=== PATIENT | male | born 1995 | race Caucasian/White ===

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

== ENCOUNTER 2017-02-08 12:36 | Emergency (ER) | payer OTHER ==
--- NOTE | 2017-02-08 13:04 | EDM.PDOC ---
ED HPI GENERAL MEDICAL PROBLEM - General Chief Complaint: ENT Problem Stated Complaint: SORE THROAT AND EARS Time Seen by Provider: 02/08/17 13:00 Source of Information: Reports: Patient History Limitations: Reports: No Limitations - History of Present Illness INITIAL COMMENTS - FREE TEXT/NARRATIVE: History of present illness: [21-year-old male presenting with onset of ear pain, throat pain, indicates he has fevers off and on difficulty in swallowing as well as lymph node swelling along his eustachian tube.] Review of systems: As per history of present illness and below otherwise all systems reviewed and negative. Past medical history: As per history of present illness and as reviewed below otherwise noncontributory. Surgical history: As per history of present illness and as reviewed below otherwise noncontributory. Social history: No reported history of drug or alcohol abuse. Family history: As per history of present illness and as reviewed below otherwise noncontributory. Physical exam: HEENT: Atraumatic, normocephalic, pupils reactive, negative for conjunctival pallor or scleral icterus, mucous membranes moist with cryptic tonsillar's with hypertrophic changes as well as being erythematous with white patchy exudate at this time, neck supple, tender with cervical lymphadenopathy, trachea midline. Lungs: Clear to auscultation, breath sounds equal bilaterally, chest nontender. Heart: S1S2, regular, negative for clicks, rubs, or JVD. Abdomen: Soft, nondistended, nontender. Negative for masses or hepatosplenomegaly. Negative for costovertebral tenderness. Pelvis: Stable nontender. Genitourinary: Deferred. Rectal: Deferred. Extremities: Atraumatic, negative for cords or calf pain. Neurovascular unremarkable. Neuro: Awake, alert, oriented. Cranial nerves II through XII unremarkable. Cerebellum unremarkable. Motor and sensory unremarkable throughout. Exam nonfocal. Diagnostics: [] Therapeutics: [] Impression: [Strep pharyngitis] Plan: [antiBiotics] Definitive disposition and diagnosis as appropriate pending reevaluation and review of above. Left Ear Pain Score (Numeric/FACES): 7 Throat Pain Score (Numeric/FACES): 5 - Related Data Allergies Allergy/AdvReac Type Severity Reaction Status Date / Time No Known Allergies Allergy Verified 02/08/17 12:46 Home Meds: Home Meds . [No Known Home Meds] 02/08/17 [History] Past Medical History - Past Health History Medical/Surgical History: Denies Medical/Surgical History HEENT History: Reports: Impaired Vision, Sinusitis Other HEENT History: wears glasses Cardiovascular History: Reports: None Respiratory History: Reports: None Gastrointestinal History: Reports: None Genitourinary History: Reports: None Musculoskeletal History: Reports: None Neurological History: Other Neuro History: hx of motion sickness Psychiatric History: Reports: Bipolar Endocrine/Metabolic History: Reports: None Hematologic History: Reports: None Immunologic History: Reports: None Oncologic (Cancer) History: Reports: None Dermatologic History: Reports: None - Past Surgical History Head Surgeries/Procedures: Reports: None HEENT Surgical History: Reports: None Cardiovascular Surgical History: Reports: None Respiratory Surgical History: Reports: None GI Surgical History: Reports: None Male Surgical History: Reports: None Endocrine Surgical History: Reports: None Neurological Surgical History: Reports: None Musculoskeletal Surgical History: Reports: Other (See Below) Oncologic Surgical History: Reports: None Dermatological Surgical History: Reports: None Social & Family History - Family History Family Medical History: Noncontributory - Tobacco Use Smoking Status *Q: Current Every Day Smoker Years of Tobacco use: 9 Packs/Tins Daily: 0.3 Second Hand Smoke Exposure: No - Caffeine Use Caffeine Use: Reports: Coffee, Energy Drinks, Soda Caffeine Use Comment: 2-3 drinks /day - Alcohol Use Days Per Week of Alcohol Use: 0 - Recreational Drug Use Recreational Drug Use: Yes Drug Use in Last 12 Months: No Recreational Drug Type: Reports: Marijuana/Hashish Recreational Drug Use Frequency: Socially Recreational Drug Last Use: "4 months ago" ED ROS ENT - Review of Systems Review Of Systems: See Below (History of present illness) ED EXAM, ENT - Physical Exam Exam: See Below (See history of present illness) Course - Vital Signs Last Recorded V/S: Last Vital Signs Temp 36.9 C 02/08/17 12:41 Pulse 80 02/08/17 12:41 Resp 18 02/08/17 12:41 BP 130/72 02/08/17 12:41 Pulse Ox 96 02/08/17 12:41 Departure - Departure Time of Disposition: 13:04 Disposition: Home, Self-Care 01 Condition: Good Clinical Impression: Streptococcal sore throat - Discharge Information Forms: ED Department Discharge Additional Instructions: The following information is given to patients seen in the emergency department who are being discharged to home. This information is to outline your options for follow-up care. We provide all patients seen in our emergency department with a follow-up referral. The need for follow-up, as well as the timing and circumstances, are variable depending upon the specifics of your emergency department visit. If you don't have a primary care physician on staff, we will provide you with a referral. We always advise you to contact your personal physician following an emergency department visit to inform them of the circumstance of the visit and for follow-up with them and/or the need for any referrals to a consulting specialist. The emergency department will also refer you to a specialist when appropriate. This referral assures that you have the opportunity for follow-up care with a specialist. All of these measure are taken in an effort to provide you with optimal care, which includes your follow-up. Under all circumstances we always encourage you to contact your private physician who remains a resource for coordinating your care. When calling for follow-up care, please make the office aware that this follow-up is from your recent emergency room visit. If for any reason you are refused follow-up, please contact the [facility] Emergency Department at and asked to speak to the emergency department charge nurse. Take medication as directed Follow-up with PCP in 1-2 days Return to ED as needed as discussed
== END 2017-02-08 13:12 | disposition home or self-care (01) ==
LOC: MW.ED 12:36
CPT/HCPCS: 99282; 99283

== ENCOUNTER 2017-09-18 06:52 | Emergency (ER) | payer BC, OTHER ==
[2017-09-18] MEDS ORDERED: Sodium Chloride 0.9% 1,000 ML IV ONE (07:21)
[2017-09-18] MEDS ORDERED: Sodium Chloride 0.9% 10 ML Syringe FLUSH PRN (07:21)
[2017-09-18] MEDS ORDERED: Ondansetron 4 MG/2 ML SDV IVPUSH ONE (07:21)
[2017-09-18] MEDS ORDERED: Sodium Chloride 0.9% 2.5 ML Syringe FLUSH PRN (07:21)
--- NOTE | 2017-09-18 07:21 | EDM.PDOC ---
ED HPI GENERAL MEDICAL PROBLEM - General Chief Complaint: Gastrointestinal Problem Stated Complaint: VOMITING Time Seen by Provider: 09/18/17 07:04 Source of Information: Reports: Patient History Limitations: Reports: No Limitations - History of Present Illness INITIAL COMMENTS - FREE TEXT/NARRATIVE: History of present illness: []Patient has nonbloody vomiting and diarrhea since yesterday and awoke this morning with body aches. He states he has chills but is unsure if he's had any fevers. He attempted to eat chicken soup this morning but vomited and then had diarrhea. Review of systems: As per history of present illness and below otherwise all systems reviewed and negative. Past medical history: As per history of present illness and as reviewed below otherwise noncontributory. Surgical history: As per history of present illness and as reviewed below otherwise noncontributory. Social history: No reported history of drug or alcohol abuse. Family history: As per history of present illness and as reviewed below otherwise noncontributory. Physical exam: General: Well developed, well nourished in NAD HEENT: Atraumatic, normocephalic, pupils reactive, negative for conjunctival pallor or scleral icterus, mucous membranes moist, throat clear, neck supple, nontender, trachea midline. Lungs: Clear to auscultation, breath sounds equal bilaterally, chest nontender. Heart: S1S2, regular, negative for clicks, rubs, or JVD. Abdomen: Soft, nondistended, nontender. Negative for masses or hepatosplenomegaly. Negative for costovertebral tenderness. Pelvis: Stable nontender. Genitourinary: Deferred. Rectal: Deferred. Extremities: Atraumatic, negative for cords or calf pain. Neurovascular unremarkable. Neuro: Awake, alert, oriented. Cranial nerves II through XII unremarkable. Cerebellum unremarkable. Motor and sensory unremarkable throughout. Exam nonfocal. Diagnostics: []Labs urine negative Therapeutics: []IV hydrated Impression: []Vomiting and diarrhea Plan: []Zofran for nausea follow-up with PMD increase fluids return if symptoms worsen Definitive disposition and diagnosis as appropriate pending reevaluation and review of above. - Related Data Allergies Allergy/AdvReac Type Severity Reaction Status Date / Time No Known Allergies Allergy Verified 09/18/17 07:18 Home Meds: Home Meds Promethazine [Phenergan] 25 mg PO Q8H PRN #10 tab 09/18/17 [Rx] Past Medical History - Past Health History Medical/Surgical History: Denies Medical/Surgical History HEENT History: Reports: Impaired Vision, Sinusitis Other HEENT History: wears glasses Cardiovascular History: Reports: None Respiratory History: Reports: None Gastrointestinal History: Reports: None Genitourinary History: Reports: None Musculoskeletal History: Reports: None Neurological History: Other Neuro History: hx of motion sickness Psychiatric History: Reports: Bipolar Endocrine/Metabolic History: Reports: None Hematologic History: Reports: None Immunologic History: Reports: None Oncologic (Cancer) History: Reports: None Dermatologic History: Reports: None - Past Surgical History Head Surgeries/Procedures: Reports: None HEENT Surgical History: Reports: None Cardiovascular Surgical History: Reports: None Respiratory Surgical History: Reports: None GI Surgical History: Reports: None Male Surgical History: Reports: None Endocrine Surgical History: Reports: None Neurological Surgical History: Reports: None Musculoskeletal Surgical History: Reports: Other (See Below) Oncologic Surgical History: Reports: None Dermatological Surgical History: Reports: None Social & Family History - Family History Family Medical History: Noncontributory - Tobacco Use Smoking Status *Q: Current Every Day Smoker Years of Tobacco use: 9 Packs/Tins Daily: 0.3 Second Hand Smoke Exposure: No - Caffeine Use Caffeine Use: Reports: Coffee, Energy Drinks, Soda Caffeine Use Comment: 2-3 drinks /day - Alcohol Use Days Per Week of Alcohol Use: 0 - Recreational Drug Use Recreational Drug Use: Yes Drug Use in Last 12 Months: No Recreational Drug Type: Reports: Marijuana/Hashish Recreational Drug Use Frequency: Socially Recreational Drug Last Use: "4 months ago" ED ROS GENERAL - Review of Systems Review Of Systems: See Below (See history of present illness) ED EXAM, GI/ABD - Physical Exam Exam: See Below (See history of present illness) Course - Vital Signs Last Recorded V/S: Last Vital Signs Temp 97.8 F 09/18/17 07:17 Pulse 97 09/18/17 07:17 Resp 18 09/18/17 07:17 BP 125/93 H 09/18/17 07:17 Pulse Ox 98 09/18/17 07:17 - Orders/Labs/Meds Orders: Active Orders 24 hr Category Date Time Status Sodium Chloride 0.9% [Saline Flush] Med 09/18/17 07:21 Active 10 ml FLUSH ASDIRECTED PRN Sodium Chloride 0.9% [Saline Flush] Med 09/18/17 07:21 Active 2.5 ml FLUSH ASDIRECTED PRN Saline Lock Insert [OM.PC] Stat Oth 09/18/17 07:21 Ordered Medication Orders Sodium Chloride (Saline Flush) 10 ml FLUSH ASDIRECTED PRN PRN Reason: Keep Vein Open Last Admin: 09/18/17 07:51 Dose: 10 ml Sodium Chloride (Saline Flush) 2.5 ml FLUSH ASDIRECTED PRN PRN Reason: Keep Vein Open Last Admin: 09/18/17 07:51 Dose: 2.5 ml Labs: Laboratory Tests 09/18/17 09/18/17 09/18/17 Range/Units 07:38 07:38 08:52 WBC 8.52 (4.0-11.0) K/uL RBC 5.31 (4.50-5.90) M/uL Hgb 16.7 (13.0-17.0) g/dL Hct 46.4 (38.0-50.0) % MCV 87.4 (80.0-98.0) fL MCH 31.5 (27.0-32.0) pg MCHC 36.0 (31.0-37.0) g/dL RDW Std Deviation 40.2 (28.0-62.0) fl RDW Coeff of Debbie 13 (11.0-15.0) % Plt Count 270 (150-400) K/uL MPV 10.90 (7.40-12.00) fL Neut % (Auto) 61.2 (48.0-80.0) % Lymph % (Auto) 29.1 (16.0-40.0) % [place] % (Auto) 8.2 (0.0-15.0) % Eos % (Auto) 1.1 (0.0-7.0) % Baso % (Auto) 0.4 (0.0-1.5) % Neut # (Auto) 5.2 (1.4-5.7) K/uL Lymph # (Auto) 2.5 H (0.6-2.4) K/uL [place] # (Auto) 0.7 (0.0-0.8) K/uL Eos # (Auto) 0.1 (0.0-0.7) K/uL Baso # (Auto) 0.0 (0.0-0.1) K/uL Nucleated RBC % 0.0 /100WBC Nucleated RBCs # 0 K/uL Sodium 137 (136-146) mmol/L Potassium 4.2 (3.5-5.1) mmol/L Chloride 108 (98-110) mmol/L Carbon Dioxide 23 (21-31) mmol/L BUN 11 (6.0-23.0) mg/dL Creatinine 0.8 (0.6-1.5) mg/dL Est Cr Clr Drug Dosing 158.18 mL/min Estimated GFR (MDRD) > 60.0 ml/min Glucose 88 (60-110) mg/dL Calcium 9.4 (8.8-10.8) mg/dL Total Bilirubin 0.7 (0.1-1.5) mg/dL AST 18 (5-40) IU/L ALT 19 (8-54) IU/L Alkaline Phosphatase 85 L (125-750) Total Protein 7.7 (6.0-8.0) g/dL Albumin 4.5 (3.5-5.0) g/dL Globulin 3.2 (2.0-3.5) g/dL Albumin/Globulin Ratio 1.4 (1.3-2.8) Lipase 9 (7-80) U/L Urine Color YELLOW Urine Appearance CLEAR Urine pH 6.0 (5.0-8.0) Ur Specific [place] 1.015 (1.001-1.035) Urine Protein NEGATIVE (NEGATIVE) mg/dL Urine Glucose (UA) NEGATIVE (NEGATIVE) mg/dL Urine Ketones NEGATIVE (NEGATIVE) mg/dL Urine Occult Blood NEGATIVE (NEGATIVE) Urine Nitrite NEGATIVE (NEGATIVE) Urine Bilirubin NEGATIVE (NEGATIVE) Urine Urobilinogen 0.2 (<2.0) EU/dL Ur Leukocyte Esterase NEGATIVE (NEGATIVE) Urine RBC 0-1 (0-2/HPF) Urine WBC 0-1 (0-5/HPF) Ur Epithelial Cells RARE (NONE-FEW) Urine Bacteria RARE (NEGATIVE) Meds: Medications Generic Name Dose Route Start Last Admin Trade Name Freq PRN Reason Stop Dose Admin Sodium Chloride 10 ml 09/18/17 07:21 09/18/17 07:51 Saline Flush FLUSH 10 ml ASDIRECTED PRN Administration Keep Vein Open Sodium Chloride 2.5 ml 09/18/17 07:21 09/18/17 07:51 Saline Flush FLUSH 2.5 ml ASDIRECTED PRN Administration Keep Vein Open Discontinued Medications Generic Name Dose Route Start Last Admin Trade Name Freq PRN Reason Stop Dose Admin Sodium Chloride 1,000 mls @ 999 mls/hr 09/18/17 07:21 09/18/17 07:51 Normal Saline IV 09/18/17 08:21 999 mls/hr .Bolus ONE Administration Ondansetron HCl 4 mg 09/18/17 07:21 09/18/17 07:50 Zofran IVPUSH 09/18/17 07:22 Not Given ONETIME ONE Departure - Departure Time of Disposition: Disposition: Home, Self-Care 01 Condition: Good Clinical Impression: Vomiting and diarrhea - Discharge Information Prescriptions: Promethazine [Phenergan] 25 mg PO Q8H PRN #10 tab PRN Reason: Nausea Referrals: PCP,None [Primary Care Provider] - Forms: ED Department Discharge Additional Instructions: The following information is given to patients seen in the emergency department who are being discharged to home. This information is to outline your options for follow-up care. We provide all patients seen in our emergency department with a follow-up referral. The need for follow-up, as well as the timing and circumstances, are variable depending upon the specifics of your emergency department visit. If you don't have a primary care physician on staff, we will provide you with a referral. We always advise you to contact your personal physician following an emergency department visit to inform them of the circumstance of the visit and for follow-up with them and/or the need for any referrals to a consulting specialist. The emergency department will also refer you to a specialist when appropriate. This referral assures that you have the opportunity for follow-up care with a specialist. All of these measure are taken in an effort to provide you with optimal care, which includes your follow-up. Under all circumstances we always encourage you to contact your private physician who remains a resource for coordinating your care. When calling for follow-up care, please make the office aware that this follow-up is from your recent emergency room visit. If for any reason you are refused follow-up, please contact the [facility] Emergency Department at and asked to speak to the emergency department charge nurse. Phenergan for nausea with PMD increase fluids return if symptoms worsen or change [facility] [address] [place] [id number] - My Orders Last 24 Hours: My Active Orders 09/18/17 07:21 Sodium Chloride 0.9% [Saline Flush] 10 ml FLUSH ASDIRECTED PRN Sodium Chloride 0.9% [Saline Flush] 2.5 ml FLUSH ASDIRECTED PRN Saline Lock Insert [OM.PC] Stat - Assessment/Plan Last 24 Hours: My Active Orders 09/18/17 07:21 Sodium Chloride 0.9% [Saline Flush] 10 ml FLUSH ASDIRECTED PRN Sodium Chloride 0.9% [Saline Flush] 2.5 ml FLUSH ASDIRECTED PRN Saline Lock Insert [OM.PC] Stat
[2017-09-18 08:13] LABS: CHLORIDE,CL 108 mmol/L (98-110); SODIUM,NA 137 mmol/L (136-146)
[2017-09-18 09:32] VITALS: BP 140/80
== END 2017-09-18 09:35 | disposition home or self-care (01) ==
LOC: MW.ED 06:52
DX: R11.10 Vomiting, unspecified (principal); R19.7 Diarrhea, unspecified; F17.210 Nicotine dependence, cigarettes, uncomplicated
CPT/HCPCS: 36415; 80053; 81001; 83690; 85025; 87804; 96360; 99284; J7040; 99283

== ENCOUNTER 2019-10-11 04:26 | Emergency (ER) | payer BC, OTHER ==
--- NOTE | 2019-10-11 04:42 | EDM.PDOC ---
ED HPI GENERAL MEDICAL PROBLEM - General Chief Complaint: Respiratory Problem Stated Complaint: CONGESTION, VOMITING, COUGH Time Seen by Provider: 10/11/19 04:36 Source of Information: Reports: Patient - History of Present Illness INITIAL COMMENTS - FREE TEXT/NARRATIVE: CC cough HPI: This is a 24-year-old male with cough and fever for the past 3 days today the patient had some posttussive emesis. No abdominal pain or diarrhea. PMHX/PSHX: Negative Social History: Negative for tobacco, negative for alcohol, negative for street drugs but positive for marijuana Family history: Hypertension ROS: see chart PE: VS afebrile vital signs stable General: No apparent distress Head: Atraumatic normocephalic no lumps bumps or bruises Eyes: EOMI PERRLA scera white, conjuntiva pink Ears: TMs intact. No hemotympanum. No signs of infection or mastoid tenderness Nose: No epistaxis. Nares patent. No septal wall hematoma Throat: No pharyngeal erythema, exudate or tonsillar enlargement Neck: Supple. No cervical lymphadenopathy Chest wall: No point tenderness Heart: Regular rate and rhythm without murmur gallop or rub Lungs: Clear to auscultation and percussion without rale, rhonchi or wheeze. Abdomen: Soft nontender nondistended without guarding rigidity or rebound. Bowel sounds present. Neck: No spinal point tenderness full range of motion in all 6 directions Back: No spinal paraspinal or CVA tenderness Extremities: Full range of motion through out. No effusions Skin: Warm, dry and intact. No rashes, erythema or warmth Neurologic: Cranial nerves II through XII intact bilaterally. No focal motor or sensory deficits noted MDM: Differential diagnosis: Pneumonia viral URI influenza ED course: Patient is 3 days into his illness so no reason to check for flu. Pulse ox 95% lungs clear no signs of pneumonia abdomen benign. I suspect the flu or viral illness as his mother is been sick at home with similar symptoms patient stable for discharge Final Diagnosis: Viral syndrome Disposition: Home - Related Data Allergies Allergy/AdvReac Type Severity Reaction Status Date / Time No Known Allergies Allergy Verified 09/18/17 07:18 Home Meds: Home Meds Promethazine [Phenergan] 25 mg PO Q8H PRN #10 tab 09/18/17 [Rx] Past Medical History - Past Health History Medical/Surgical History: Denies Medical/Surgical History HEENT History: Reports: Impaired Vision, Sinusitis Other HEENT History: wears glasses Cardiovascular History: Reports: None Respiratory History: Reports: None Gastrointestinal History: Reports: None Genitourinary History: Reports: None Musculoskeletal History: Reports: None Neurological History: Other Neuro History: hx of motion sickness Psychiatric History: Reports: Bipolar Endocrine/Metabolic History: Reports: None Hematologic History: Reports: None Immunologic History: Reports: None Oncologic (Cancer) History: Reports: None Dermatologic History: Reports: None - Past Surgical History Head Surgeries/Procedures: Reports: None HEENT Surgical History: Reports: None Cardiovascular Surgical History: Reports: None Respiratory Surgical History: Reports: None GI Surgical History: Reports: None Male Surgical History: Reports: None Endocrine Surgical History: Reports: None Neurological Surgical History: Reports: None Musculoskeletal Surgical History: Reports: Other (See Below) Oncologic Surgical History: Reports: None Dermatological Surgical History: Reports: None Social & Family History - Family History Family Medical History: Noncontributory - Caffeine Use Caffeine Use: Reports: Coffee, Energy Drinks, Soda Caffeine Use Comment: 2-3 drinks /day ED ROS GENERAL - Review of Systems Review Of Systems: Comprehensive ROS is negative, except as noted in HPI. ED EXAM, GENERAL - Physical Exam Exam: See Below Free Text/Narrative:: See my note Departure - Departure Time of Disposition: 04:41 Disposition: Home, Self-Care 01 Clinical Impression: URI (upper respiratory infection) Qualifiers: URI type: unspecified URI Qualified Code(s): J06.9 - Acute upper respiratory infection, unspecified - Discharge Information Referrals: PCP,None [Primary Care Provider] - Additional Instructions: Take TheraFlu. Push fluids. Treat your fever with alternating doses of Tylenol and ibuprofen. Push fluids. Do not smoke!. The following information is given to patients seen in the emergency department who are being discharged to home. This information is to outline your options for follow-up care. We provide all patients seen in our emergency department with a follow-up referral. The need for follow-up, as well as the timing and circumstances, are variable depending upon the specifics of your emergency department visit. If you don't have a primary care physician on staff, we will provide you with a referral. We always advise you to contact your personal physician following an emergency department visit to inform them of the circumstance of the visit and for follow-up with them and/or the need for any referrals to a consulting specialist. The emergency department will also refer you to a specialist when appropriate. This referral assures that you have the opportunity for follow-up care with a specialist. All of these measure are taken in an effort to provide you with optimal care, which includes your follow-up. Under all circumstances we always encourage you to contact your private physician who remains a resource for coordinating your care. When calling for follow-up care, please make the office aware that this follow-up is from your recent emergency room visit. If for any reason you are refused follow-up, please contact the Emergency Department at and asked to speak to the emergency department charge nurse.
== END 2019-10-11 05:10 | disposition home or self-care (01) ==
LOC: MW.ED 04:26
CPT/HCPCS: 99283

== ENCOUNTER 2020-03-17 14:46 | Inpatient (IN) | payer BC, OTHER ==
--- NOTE | 2020-03-17 14:58 | EDM.PDOC ---
ED HPI GENERAL MEDICAL PROBLEM - General Chief Complaint: Respiratory Problem Stated Complaint: COUGH,FEVER Time Seen by Provider: 03/17/20 14:47 Source of Information: Reports: Patient History Limitations: Reports: No Limitations - History of Present Illness INITIAL COMMENTS - FREE TEXT/NARRATIVE: HISTORY AND PHYSICAL: History of present illness: Patient is a 24-year-old male who presents to the emergency room with multiple complaints. He states over the past 4 to 5 days he has had. Over the past 4 to 5 days he has had midsternal chest pain which he states is only alleviated with rest and sleeping. Over the past 1 to 2 days he has developed body aches, headache, subjective fever and cough. Today he has had several bouts of nausea and vomiting. Patient denies any neck pain/stiffness, change in vision, syncope or near syncope. Denies any back pain, abdominal pain, diarrhea, constipation or dysuria. Has not noted any blood in urine or stool. He denies any recent travel. Denies any alcohol or drug abuse. No direct exposure to anyone who is recently been ill/COVID-19 concerns. Review of systems: As per history of present illness and below otherwise all systems reviewed and negative. Past medical history: As per history of present illness and as reviewed below otherwise noncontributory. Surgical history: As per history of present illness and as reviewed below otherwise noncontributory. Social history: See social history for further information Family history: As per history of present illness and as reviewed below otherwise noncontributory. Physical exam: General: Well developed and well nourished 24-year-old male. Alert and oriented. Nontoxic-appearing and in no acute distress. Vital signs have been reviewed by me. HEENT: Atraumatic, normocephalic, pupils equal and reactive bilaterally, negative for conjunctival pallor or scleral icterus, mucous membranes moist, TMs normal bilaterally, throat erythematous without fullness or pillar shifting, neck supple, nontender, trachea midline. No drooling or trismus noted. No meningeal signs. No hot potato voice noted. Lungs: Clear to auscultation, breath sounds equal bilaterally, chest nontender. Heart: S1S2, tachycardic rate 130s and rhythm without overt murmur Abdomen: Soft, nondistended, nontender. Skin: Intact, warm, dry. No lesions or rashes noted. Hematologic: No petechiae or purpra. Mucosa appropriate color and normal nail bed color and refill. Extremities: Atraumatic, moves all extremities per self without difficulty or deficits, negative for cords or calf pain. Neurovascular unremarkable. Neuro: Awake, alert, oriented. Cranial nerves II through XII unremarkable. Cerebellum unremarkable. Motor and sensory unremarkable throughout. Exam nonfocal. Notes: EKG was done at 1510: Sinus tachycardia with rate of 112, showing an incomplete right bundle branch block. ST depression is noted in V3, no previous EKG for comparison. Lab work is pending. Patient does have a leukocytosis at 20, lactate is normal, radiologist's reading the chest x-ray is unremarkable -dispute that saying he has a left lower lobe pneumonia. With vital signs being abnormal, rule out sepsis. Blood cultures have been drawn will initiate IV antibiotics. I did consult Dr. Tyson/[facility]ist on-call, about this patient. They are agreeable to admitting patient for observation admission and further care and management. Due to patient's initial EKG I will place him on telemetry. Diagnostics: CBC, CMP, Troponin, EKG, CXR, Coronavirus, D.Dimer, BC x 2 Therapeutics: IV fluids, Zofran, Toradol, Rocephin, Azithromycin, Solu-Medrol Impression: Pneumonia, LLL EKG changes Plan: Observation admission to Med/Surg with telemetry Definitive disposition and diagnosis as appropriate pending reevaluation and review of above. chest Pain Score (Numeric/FACES): 8 - Related Data Allergies Allergy/AdvReac Type Severity Reaction Status Date / Time No Known Allergies Allergy Verified 03/17/20 17:48 Home Meds: Home Meds . [No Known Home Meds] 03/17/20 [History] Past Medical History - Past Health History Medical/Surgical History: Denies Medical/Surgical History HEENT History: Reports: Impaired Vision, Sinusitis Other HEENT History: wears glasses Cardiovascular History: Reports: None Respiratory History: Reports: None Gastrointestinal History: Reports: None Genitourinary History: Reports: None Musculoskeletal History: Reports: None Neurological History: Other Neuro History: hx of motion sickness Psychiatric History: Reports: Bipolar Endocrine/Metabolic History: Reports: None Hematologic History: Reports: None Immunologic History: Reports: None Oncologic (Cancer) History: Reports: None Dermatologic History: Reports: None - Past Surgical History Head Surgeries/Procedures: Reports: None HEENT Surgical History: Reports: None Cardiovascular Surgical History: Reports: None Respiratory Surgical History: Reports: None GI Surgical History: Reports: None Male Surgical History: Reports: None Endocrine Surgical History: Reports: None Neurological Surgical History: Reports: None Musculoskeletal Surgical History: Reports: Other (See Below) Oncologic Surgical History: Reports: None Dermatological Surgical History: Reports: None Social & Family History - Family History Family Medical History: Noncontributory - Caffeine Use Caffeine Use: Reports: Coffee, Energy Drinks, Soda Caffeine Use Comment: 2-3 drinks /day ED ROS GENERAL - Review of Systems Review Of Systems: Comprehensive ROS is negative, except as noted in HPI. ED EXAM, GENERAL - Physical Exam Exam: See Below (SEe dictation) Course - Vital Signs Last Recorded V/S: Last Vital Signs Temp 98 F 03/17/20 19:15 Pulse 100 03/17/20 19:15 Resp 15 03/17/20 19:15 BP 125/82 03/17/20 19:15 Pulse Ox 96 03/17/20 19:15 - Orders/Labs/Meds Orders: Active Orders 24 hr Category Date Time Status Azithromycin [Zithromax] 500 mg Med 03/17/20 16:15 Active Sodium Chloride 0.9% [Normal Saline (AdvBag)] 250 ml IV ONETIME Medication Orders Acetaminophen (Tylenol) 650 mg PO Q4H PRN PRN Reason: Pain (Mild 1-3)/fever Albuterol/Ipratropium (Duoneb 3.0-0.5 Mg/3 Ml) 3 ml NEB Q4HRRT PRN PRN Reason: Dyspnea Enoxaparin Sodium (Lovenox) 40 mg SUBCUT BEDTIME WYATT Azithromycin 500 mg/ Sodium (Chloride) 250 mls @ 250 mls/hr IV ONETIME WYATT Last Admin: 03/17/20 17:44 Dose: 250 mls/hr Documented by: MENSFRA Lactated Ringer's (Ringers, Lactated) 1,000 mls @ 125 mls/hr IV ASDIRECTED WYATT Last Admin: 03/17/20 17:40 Dose: 125 mls/hr Documented by: MENSFRA Ceftriaxone Sodium/Dextrose 1 (gm/ Premix) 50 mls @ 100 mls/hr IV Q24H WYATT Azithromycin 500 mg/ Sodium (Chloride) 250 mls @ 250 mls/hr IV DAILY [facility] Ketorolac Tromethamine (Toradol) 15 mg IVPUSH Q6H [facility] Last Admin: 03/17/20 17:57 Dose: 15 mg Documented by: LOUANN Ondansetron HCl (Zofran Odt) 4 mg PO Q4H PRN PRN Reason: nausea, able to take PO Ondansetron HCl (Zofran) 4 mg IVPUSH Q4H PRN PRN Reason: Nausea Sodium Phosphate (Neutra-Phos) 250 mg PO QID [facility] Stop: 03/18/20 12:01 Last Admin: 03/17/20 18:32 Dose: 250 mg Documented by: LOUANN Labs: Laboratory Tests 03/17/20 03/17/20 03/17/20 Range/Units 15:30 15:34 15:34 WBC 20.43 H (4.0-11.0) K/uL RBC 4.79 (4.50-5.90) M/uL Hgb 15.1 (13.0-17.0) g/dL Hct 42.6 (38.0-50.0) % MCV 88.9 (80.0-98.0) fL MCH 31.5 (27.0-32.0) pg MCHC 35.4 (31.0-37.0) g/dL RDW Std Deviation 41.9 (28.0-62.0) fl RDW Coeff of Debbie 13 (11.0-15.0) % Plt Count 280 (150-400) K/uL MPV 10.70 (7.40-12.00) fL Neut % (Auto) 89.2 H (48.0-80.0) % Lymph % (Auto) 6.5 L (16.0-40.0) % [place] % (Auto) 3.8 (0.0-15.0) % Eos % (Auto) 0.3 (0.0-7.0) % Baso % (Auto) 0.2 (0.0-1.5) % Neut # (Auto) 18.2 H (1.4-5.7) K/uL Lymph # (Auto) 1.3 (0.6-2.4) K/uL [place] # (Auto) 0.8 (0.0-0.8) K/uL Eos # (Auto) 0.1 (0.0-0.7) K/uL Baso # (Auto) 0.1 (0.0-0.1) K/uL Nucleated RBC % 0.0 /100WBC Nucleated RBCs # 0 K/uL D-Dimer, Quantitative 0.40 (0.0-0.50) mg/L FEU Lactate (0.20-2.00) mmol/L Sodium (136-148) mmol/L Potassium (3.5-5.1) mmol/L Chloride (98-107) mmol/L Carbon Dioxide (21.0-32.0) mmol/L BUN (7.0-18.0) mg/dL Creatinine (0.8-1.3) mg/dL Est Cr Clr Drug Dosing mL/min Estimated GFR (MDRD) ml/min Glucose (74-106) mg/dL Calcium (8.5-10.1) mg/dL Phosphorus (2.6-4.7) mg/dL Magnesium (1.8-2.4) mg/dL Total Bilirubin (0.2-1.0) mg/dL AST (15-37) IU/L ALT (14-63) IU/L Alkaline Phosphatase (46-116) U/L Troponin I (0.000-0.056) ng/mL Total Protein (6.4-8.2) g/dL Albumin (3.4-5.0) g/dL Globulin (2.6-4.0) g/dL Albumin/Globulin Ratio (0.9-1.6) TSH 3rd Generation (0.36-3.74) uIU/mL COVID-19 (RODERICK) NEGATIVE (NEGATIVE) 03/17/20 03/17/20 03/17/20 Range/Units 15:34 15:34 15:34 WBC (4.0-11.0) K/uL RBC (4.50-5.90) M/uL Hgb (13.0-17.0) g/dL Hct (38.0-50.0) % MCV (80.0-98.0) fL MCH (27.0-32.0) pg MCHC (31.0-37.0) g/dL RDW Std Deviation (28.0-62.0) fl RDW Coeff of Debbie (11.0-15.0) % Plt Count (150-400) K/uL MPV (7.40-12.00) fL Neut % (Auto) (48.0-80.0) % Lymph % (Auto) (16.0-40.0) % [place] % (Auto) (0.0-15.0) % Eos % (Auto) (0.0-7.0) % Baso % (Auto) (0.0-1.5) % Neut # (Auto) (1.4-5.7) K/uL Lymph # (Auto) (0.6-2.4) K/uL [place] # (Auto) (0.0-0.8) K/uL Eos # (Auto) (0.0-0.7) K/uL Baso # (Auto) (0.0-0.1) K/uL Nucleated RBC % /100WBC Nucleated RBCs # K/uL D-Dimer, Quantitative (0.0-0.50) mg/L FEU Lactate 1.2 (0.20-2.00) mmol/L Sodium 135 L (136-148) mmol/L Potassium 3.5 (3.5-5.1) mmol/L Chloride 100 (98-107) mmol/L Carbon Dioxide 18.8 L (21.0-32.0) mmol/L BUN 9 (7.0-18.0) mg/dL Creatinine 0.9 (0.8-1.3) mg/dL Est Cr Clr Drug Dosing 137.12 mL/min Estimated GFR (MDRD) > 60.0 ml/min Glucose 92 (74-106) mg/dL Calcium 8.5 (8.5-10.1) mg/dL Phosphorus 2.3 L (2.6-4.7) mg/dL Magnesium 1.7 L (1.8-2.4) mg/dL Total Bilirubin 1.2 H (0.2-1.0) mg/dL AST 21 (15-37) IU/L ALT 19 (14-63) IU/L Alkaline Phosphatase 102 (46-116) U/L Troponin I < 0.050 (0.000-0.056) ng/mL Total Protein 8.3 H (6.4-8.2) g/dL Albumin 3.9 (3.4-5.0) g/dL Globulin 4.4 H (2.6-4.0) g/dL Albumin/Globulin Ratio 0.9 (0.9-1.6) TSH 3rd Generation 0.52 (0.36-3.74) uIU/mL COVID-19 (RODERICK) (NEGATIVE) Meds: Medications Generic Name Dose Route Start Last Admin Trade Name Freq PRN Reason Stop Dose Admin Acetaminophen 650 mg 03/17/20 17:01 Tylenol PO Q4H PRN Pain (Mild 1-3)/fever Albuterol/Ipratropium 3 ml 03/17/20 17:03 Duoneb 3.0-0.5 Mg/3 Ml NEB Q4HRRT PRN Dyspnea Enoxaparin Sodium 40 mg 03/17/20 21:00 Lovenox SUBCUT BEDTIME WYATT Azithromycin 500 mg/ Sodium 250 mls @ 250 mls/hr 03/17/20 16:15 03/17/20 17:44 Chloride IV 250 mls/hr ONETIME WYATT Administration Lactated Ringer's 1,000 mls @ 125 mls/hr 03/17/20 17:15 03/17/20 17:40 Ringers, Lactated IV 125 mls/hr ASDIRECTED WYATT Administration Ceftriaxone Sodium/Dextrose 1 50 mls @ 100 mls/hr 03/18/20 16:00 gm/ Premix IV Q24H WYATT Azithromycin 500 mg/ Sodium 250 mls @ 250 mls/hr 03/18/20 09:00 Chloride IV DAILY [facility]YATT Ketorolac Tromethamine 15 mg 03/17/20 17:45 03/17/20 17:57 Toradol IVPUSH 15 mg Q6H WYATT Administration Ondansetron HCl 4 mg 03/17/20 17:01 Zofran Odt PO Q4H PRN nausea, able to take PO Ondansetron HCl 4 mg 03/17/20 17:01 Zofran IVPUSH Q4H PRN Nausea Sodium Phosphate 250 mg 03/17/20 18:00 03/17/20 18:32 Neutra-Phos PO 03/18/20 12:01 250 mg QID WYATT Administration Discontinued Medications Generic Name Dose Route Start Last Admin Trade Name Freq PRN Reason Stop Dose Admin Aspirin 325 mg 03/17/20 17:38 03/17/20 17:56 Aspirin PO 03/17/20 17:39 325 mg ONETIME ONE Administration Al Hydroxide/Mg Hydroxide 15 0 ml 03/17/20 17:39 03/17/20 18:04 ml/ Lidocaine HCl 5 ml PO 03/17/20 17:40 20 each ONETIME ONE Administration Sodium Chloride 1,000 mls @ 999 mls/hr 03/17/20 15:02 03/17/20 15:26 Normal Saline IV 03/17/20 16:02 999 mls/hr STAT ONE Administration Ceftriaxone Sodium/Dextrose 1 50 mls @ 100 mls/hr 03/17/20 16:11 03/17/20 16:30 gm/ Premix IV 03/17/20 16:40 100 mls/hr ONETIME ONE Administration Magnesium Sulfate 2 gm/ Premix 50 mls @ 50 mls/hr 03/17/20 17:41 03/17/20 19:16 IV 03/17/20 18:40 50 mls/hr ONETIME ONE Administration Ketorolac Tromethamine 30 mg 03/17/20 15:02 03/17/20 15:29 Toradol IVPUSH 03/17/20 15:03 30 mg ONETIME ONE Administration Ketorolac Tromethamine 30 mg 03/17/20 17:11 Toradol IVPUSH Q6H PRN Pain Ondansetron HCl 4 mg 03/17/20 15:02 03/17/20 15:27 Zofran IVPUSH 03/17/20 15:03 4 mg ONETIME ONE Administration Departure - Departure Time of Disposition: 19:54 Disposition: Refer to Observation Clinical Impression: Pneumonia - Discharge Information Sepsis Event Note (ED) - Focused Exam Vital Signs: Vital Signs Temp Pulse Resp BP Pulse Ox 03/17/20 14:49 96.1 F L 132 H 21 H 151/95 H 95 - My Orders Last 24 Hours: My Active Orders 03/17/20 16:15 Azithromycin [Zithromax] 500 mg Sodium Chloride 0.9% [Normal Saline (AdvBag)] 250 ml IV ONETIME - Assessment/Plan Last 24 Hours: My Active Orders 03/17/20 16:15 Azithromycin [Zithromax] 500 mg Sodium Chloride 0.9% [Normal Saline (AdvBag)] 250 ml IV ONETIME
[2020-03-17] MEDS ORDERED: Ondansetron 4 MG/2 ML SDV IVPUSH ONE (15:02)
[2020-03-17] MEDS ORDERED: Sodium Chloride 0.9% 1,000 ML IV ONE (15:02)
[2020-03-17] MEDS ORDERED: Ketorolac 30 MG/ML SDV IVPUSH ONE (15:02)
--- NOTE | 2020-03-17 16:00 | CR ---
INDICATION: Chest pain TECHNIQUE: Chest radiograph 1 view COMPARISON: None FINDINGS: Cardiovascular and mediastinum: The heart silhouette is normal in size and morphology. The mediastinum is normal in appearance. Lungs and pleural spaces: Both lungs are unremarkable in appearance. No sign of pleural effusion seen. No pneumothorax is identified. Bones and soft tissues: No significant findings. IMPRESSION: 1. No acute cardiopulmonary disease is seen. Dictated by Tello Vidal MD @ 03/17/2020 3:58:43 PM Dictated by: Tello Vidal MD @ 03/17/2020 15:58:50 (Electronically Signed)
[2020-03-17 16:04] LABS: BLOOD UREA NITROGEN,BUN 9 mg/dL (7.0-18.0); CARBON DIOXIDE,CO2 18.8 mmol/L (21.0-32.0); CHLORIDE,CL 100 mmol/L (98-107); GLUCOSE RANDOM 92 mg/dL (74-106); POTASSIUM,K 3.5 mmol/L (3.5-5.1); SODIUM,NA 135 mmol/L (136-148)
[2020-03-17] MEDS ORDERED: cefTRIAXone 1 GM in Premix Bag 1 BAG IV ONE (16:11)
[2020-03-17] MEDS ORDERED: Azithromycin 500 MG in Sodium Chloride 0.9% 250 ML IV SCH (16:15)
--- NOTE | 2020-03-17 16:46 | PCM.HP.2 ---
<Francisco Ruiz M - Last Filed: 03/17/20 17:08> H&P History of Present Illness - General Date of Service: 03/17/20 Admit Problem/Dx: Admission Diagnosis/Problem Admission Diagnosis/Problem Pneumonia Source of Information: Patient History Limitations: Reports: No Limitations - History of Present Illness Initial Comments - Free Text/Narative: 24-year-old male presents complaining of chest pain, fevers, cough and sweats for the past 4-5 days. He reports no significant PMH. Patient first started having chest pain about 4 days ago and then eventually developed productive cough of clear sputum, muscle aches, fevers, nausea and vomiting. The chest pain is located substernally, described as being "pressure-like", constant in nature, unrelated to activity, alleviated by lying down and worsens on palpation. Patient denies any recent travel or any known sick contacts. Patient denies any SOB, abdominal pain, diarrhea, blood in stool, blood in urine, numbness or tingling in extremities. In the ER, WBC 20,000, CMP unremarkable, lactate normal, troponin negative and COVID19 test negative. CXR read by radiology showed no acute findings, however, per ER provider patient appears to have LLL pneumonia. Blood cultures obtained. Patient given 1 L IV NS bolus, Zofran, Toradol, IV Rocephin and IV azithromycin. EKG showed sinus tachycardia, ST depression in lead V3 and incomplete right bundle branch block. Patient admitted for further evaluation and treatment. chest Pain Score (Numeric/FACES): 8 - Related Data Allergies/Adverse Reactions: Allergies Allergy/AdvReac Type Severity Reaction Status Date / Time No Known Allergies Allergy Verified 03/17/20 17:48 Home Medications: Home Meds . [No Known Home Meds] 03/17/20 [History] Past Medical History - Past Health History Medical/Surgical History: Denies Medical/Surgical History HEENT History: Reports: Impaired Vision, Sinusitis Other HEENT History: wears glasses Cardiovascular History: Reports: None Respiratory History: Reports: None Gastrointestinal History: Reports: None Genitourinary History: Reports: None Musculoskeletal History: Reports: None Neurological History: Other Neuro History: hx of motion sickness Psychiatric History: Reports: Bipolar Endocrine/Metabolic History: Reports: None Hematologic History: Reports: None Immunologic History: Reports: None Oncologic (Cancer) History: Reports: None Dermatologic History: Reports: None - Past Surgical History Head Surgeries/Procedures: Reports: None HEENT Surgical History: Reports: None Cardiovascular Surgical History: Reports: None Respiratory Surgical History: Reports: None GI Surgical History: Reports: None Male Surgical History: Reports: None Endocrine Surgical History: Reports: None Neurological Surgical History: Reports: None Musculoskeletal Surgical History: Reports: Other (See Below) Oncologic Surgical History: Reports: None Dermatological Surgical History: Reports: None Social & Family History - Family History Family Medical History: Noncontributory - Caffeine Use Caffeine Use: Reports: Coffee, Energy Drinks, Soda Caffeine Use Comment: 2-3 drinks /day - Recreational Drug Use Recreational Drug Use: Yes Recreational Drug Type: Reports: Marijuana/Hashish Recreational Drug Use Frequency: Weekly Recreational Drug Last Use: "4 days ago" H&P Review of Systems - Review of Systems: Review Of Systems: Comprehensive ROS is negative, except as noted in HPI. Exam - Exam Exam: See Below - Vital Signs Vital Signs: Last Vital Signs Temp 35.6 C L 03/17/20 14:49 Pulse 116 H 03/17/20 16:34 Resp 16 03/17/20 16:34 BP 126/84 03/17/20 16:34 Pulse Ox 96 03/17/20 16:34 Weight: 92 kg - Exam General: Alert, Oriented, Cooperative, Other (NAD) HEENT: Conjunctiva Clear, EOMI, Hearing Intact, Pupils Equal, Pupils Reactive Neck: Supple, Trachea Midline Lungs: Clear to Auscultation, Normal Respiratory Effort Cardiovascular: Regular Rhythm, Tachycardia, Other (pain elicited on palpation over sternum.) GI/Abdominal Exam: Normal Bowel Sounds, Soft, Non-Tender, No Distention Extremities: Normal Inspection, No Pedal Edema Peripheral Pulses: 2+: Radial (L), Radial (R) Skin: Warm, Dry, Intact Neurological: Cranial Nerves Intact, Strength Equal Bilateral, Normal Speech, Normal Tone Neuro Extensive - Mental Status: Alert, Oriented x3, Normal Mood/Affect Psychiatric: Alert, Normal Affect, Normal Mood - Patient Data Lab Results Last 24 hrs: Laboratory Results - last 24 hr 03/17/20 03/17/20 03/17/20 Range/Units 15:30 15:34 15:34 WBC 20.43 H (4.0-11.0) K/uL RBC 4.79 (4.50-5.90) M/uL Hgb 15.1 (13.0-17.0) g/dL Hct 42.6 (38.0-50.0) % MCV 88.9 (80.0-98.0) fL MCH 31.5 (27.0-32.0) pg MCHC 35.4 (31.0-37.0) g/dL RDW Std Deviation 41.9 (28.0-62.0) fl RDW Coeff of Debbie 13 (11.0-15.0) % Plt Count 280 (150-400) K/uL MPV 10.70 (7.40-12.00) fL Neut % (Auto) 89.2 H (48.0-80.0) % Lymph % (Auto) 6.5 L (16.0-40.0) % [place] % (Auto) 3.8 (0.0-15.0) % Eos % (Auto) 0.3 (0.0-7.0) % Baso % (Auto) 0.2 (0.0-1.5) % Neut # (Auto) 18.2 H (1.4-5.7) K/uL Lymph # (Auto) 1.3 (0.6-2.4) K/uL [place] # (Auto) 0.8 (0.0-0.8) K/uL Eos # (Auto) 0.1 (0.0-0.7) K/uL Baso # (Auto) 0.1 (0.0-0.1) K/uL Nucleated RBC % 0.0 /100WBC Nucleated RBCs # 0 K/uL D-Dimer, Quantitative 0.40 (0.0-0.50) mg/L FEU Lactate (0.20-2.00) mmol/L Sodium (136-148) mmol/L Potassium (3.5-5.1) mmol/L Chloride (98-107) mmol/L Carbon Dioxide (21.0-32.0) mmol/L BUN (7.0-18.0) mg/dL Creatinine (0.8-1.3) mg/dL Est Cr Clr Drug Dosing mL/min Estimated GFR (MDRD) ml/min Glucose (74-106) mg/dL Calcium (8.5-10.1) mg/dL Total Bilirubin (0.2-1.0) mg/dL AST (15-37) IU/L ALT (14-63) IU/L Alkaline Phosphatase (46-116) U/L Troponin I (0.000-0.056) ng/mL Total Protein (6.4-8.2) g/dL Albumin (3.4-5.0) g/dL Globulin (2.6-4.0) g/dL Albumin/Globulin Ratio (0.9-1.6) COVID-19 (RODERICK) NEGATIVE (NEGATIVE) 03/17/20 03/17/20 Range/Units 15:34 15:34 WBC (4.0-11.0) K/uL RBC (4.50-5.90) M/uL Hgb (13.0-17.0) g/dL Hct (38.0-50.0) % MCV (80.0-98.0) fL MCH (27.0-32.0) pg MCHC (31.0-37.0) g/dL RDW Std Deviation (28.0-62.0) fl RDW Coeff of Debbie (11.0-15.0) % Plt Count (150-400) K/uL MPV (7.40-12.00) fL Neut % (Auto) (48.0-80.0) % Lymph % (Auto) (16.0-40.0) % [place] % (Auto) (0.0-15.0) % Eos % (Auto) (0.0-7.0) % Baso % (Auto) (0.0-1.5) % Neut # (Auto) (1.4-5.7) K/uL Lymph # (Auto) (0.6-2.4) K/uL [place] # (Auto) (0.0-0.8) K/uL Eos # (Auto) (0.0-0.7) K/uL Baso # (Auto) (0.0-0.1) K/uL Nucleated RBC % /100WBC Nucleated RBCs # K/uL D-Dimer, Quantitative (0.0-0.50) mg/L FEU Lactate 1.2 (0.20-2.00) mmol/L Sodium 135 L (136-148) mmol/L Potassium 3.5 (3.5-5.1) mmol/L Chloride 100 (98-107) mmol/L Carbon Dioxide 18.8 L (21.0-32.0) mmol/L BUN 9 (7.0-18.0) mg/dL Creatinine 0.9 (0.8-1.3) mg/dL Est Cr Clr Drug Dosing 137.12 mL/min Estimated GFR (MDRD) > 60.0 ml/min Glucose 92 (74-106) mg/dL Calcium 8.5 (8.5-10.1) mg/dL Total Bilirubin 1.2 H (0.2-1.0) mg/dL AST 21 (15-37) IU/L ALT 19 (14-63) IU/L Alkaline Phosphatase 102 (46-116) U/L Troponin I < 0.050 (0.000-0.056) ng/mL Total Protein 8.3 H (6.4-8.2) g/dL Albumin 3.9 (3.4-5.0) g/dL Globulin 4.4 H (2.6-4.0) g/dL Albumin/Globulin Ratio 0.9 (0.9-1.6) COVID-19 (RODERICK) (NEGATIVE) Result Diagrams: 03/17/20 15:34 03/17/20 15:34 Sepsis Event Note - Evaluation Sepsis Screening Result: No Definite Risk - Focused Exam Vital Signs: Vital Signs Temp Pulse Resp BP Pulse Ox 03/17/20 16:34 116 H 16 126/84 96 03/17/20 14:49 35.6 C L 132 H 21 H 151/95 H 95 Date Exam was Performed: 03/17/20 Time Exam was Performed: 17:08 Problem List Initiated/Reviewed/Updated: Yes Orders Last 24hrs: Active Orders 24 hr Category Date Time Status Admission Status [Patient Status] [ADT] Stat ADT 03/17/20 16:11 Active Cardiac Monitoring [RC] . DIRECTED Care 03/17/20 16:11 Active EKG Documentation Completion [RC] STAT Care 03/17/20 15:02 Active Azithromycin [Zithromax] 500 mg Med 03/17/20 16:15 Active Sodium Chloride 0.9% [Normal Saline (AdvBag)] 250 ml IV ONETIME Medication Orders Azithromycin 500 mg/ Sodium (Chloride) 250 mls @ 250 mls/hr IV ONETIME [facility] Assessment/Plan Comment:: Assessment and Plan: 1. Sepsis secondary to community-acquired pneumonia: - Admit to med/surg. Will start supplemental oxygen as required, DuoNebs q4 PRN, incentive spirometer, IV ceftriaxone and IV azithromycin. Blood cultures pending. Lactate level normal. Vital signs are stable. Patient given 1 L IV NS bolus in ER. Will start IV LR maintenance fluids. - CXR: left lower lung opacity. COVID19 test negative. 2. Atypical chest pain: - Patient on telemetry. EKG showed sinus tachycardia, ST depression in lead V3 and incomplete RBBB. Will trend troponins q3h. Check TSH, magnesium and phosphorus level. Will order CTA chest PE protocol. 3. DVT prophylaxis: lovenox. <Zena Tyson - Last Filed: 03/19/20 19:11> H&P History of Present Illness - General Admit Problem/Dx: Admission Diagnosis/Problem Admission Diagnosis/Problem Pneumonia - History of Present Illness Initial Comments - Free Text/Narative: I performed a history and physical exam of the patient and discussed management with resident. I have reviewed the residents note and agree with documented findings and plan unless otherwise specified in my note. chest Pain Score (Numeric/FACES): 8 rt hip Pain Score (Numeric/FACES): 5 Exam - Vital Signs Vital Signs: Last Vital Signs Temp 37.4 C 03/19/20 16:00 Pulse 104 H 03/19/20 16:00 Resp 16 03/19/20 16:00 BP 138/82 03/19/20 16:00 Pulse Ox 92 L 03/19/20 17:00 - Patient Data Lab Results Last 24 hrs: Laboratory Results - last 24 hr 03/19/20 03/19/20 03/19/20 Range/Units 05:35 05:35 05:35 WBC 14.96 H (4.0-11.0) K/uL RBC 3.77 L (4.50-5.90) M/uL Hgb 11.8 L (13.0-17.0) g/dL Hct 33.2 L (38.0-50.0) % MCV 88.1 (80.0-98.0) fL MCH 31.3 (27.0-32.0) pg MCHC 35.5 (31.0-37.0) g/dL RDW Std Deviation 39.2 (28.0-62.0) fl RDW Coeff of Debbie 13 (11.0-15.0) % Plt Count 226 (150-400) K/uL MPV 11.00 (7.40-12.00) fL Neut % (Auto) 88.8 H (48.0-80.0) % Lymph % (Auto) 6.4 L (16.0-40.0) % [place] % (Auto) 4.3 (0.0-15.0) % Eos % (Auto) 0.3 (0.0-7.0) % Baso % (Auto) 0.2 (0.0-1.5) % Neut # (Auto) 13.3 H (1.4-5.7) K/uL Lymph # (Auto) 1.0 (0.6-2.4) K/uL [place] # (Auto) 0.6 (0.0-0.8) K/uL Eos # (Auto) 0.1 (0.0-0.7) K/uL Baso # (Auto) 0.0 (0.0-0.1) K/uL Sodium 135 L (136-148) mmol/L Potassium 3.4 L (3.5-5.1) mmol/L Chloride 102 (98-107) mmol/L Carbon Dioxide 21.3 (21.0-32.0) mmol/L BUN 4 L (7.0-18.0) mg/dL Creatinine 0.8 (0.8-1.3) mg/dL Est Cr Clr Drug Dosing 154.26 mL/min Estimated GFR (MDRD) > 60.0 ml/min Glucose 100 (74-106) mg/dL Calcium 7.7 L (8.5-10.1) mg/dL Phosphorus 1.6 L (2.6-4.7) mg/dL Magnesium 1.4 L (1.8-2.4) mg/dL Albumin 2.7 L (3.4-5.0) g/dL Result Diagrams: 03/19/20 05:35 03/19/20 05:35 Simone Results Last 24 hrs: Microbiology 03/17/20 21:33 Aerobic Blood Culture - Preliminary Blood - Venous - Lab Draw NO GROWTH AFTER 1 DAY Anaerobic Blood Culture - Final 03/17/20 21:23 Aerobic Blood Culture - Preliminary Blood - Venous NO GROWTH AFTER 1 DAY Anaerobic Blood Culture - Preliminary NO GROWTH AFTER 1 DAY Sepsis Event Note - Focused Exam Vital Signs: Vital Signs Temp Pulse Resp BP Pulse Ox Pulse Ox 03/19/20 17:00 92 L 03/19/20 16:00 37.4 C 104 H 16 138/82 93 L 03/19/20 12:00 37 C 94 16 126/78 97 03/19/20 08:00 37.6 C 107 H 18 125/64 91 L Date Exam was Performed: 03/19/20 Time Exam was Performed: 19:11 - Problem List (1) Pneumonia SNOMED Code(s): 215878850 ICD Code: J18.9 - PNEUMONIA, UNSPECIFIED ORGANISM Status: Acute Current Visit: Yes Orders Last 24hrs: Active Orders 24 hr Category Date Time Status Communication Order [RC] ROUTINE Care 03/19/20 17:19 Active ALBUMIN [CHEM] AM Lab 03/20/20 05:11 Ordered BASIC METABOLIC PANEL,BMP [CHEM] AM Lab 03/20/20 05:11 Ordered CBC WITH AUTO DIFF [HEME] AM Lab 03/20/20 05:11 Ordered MAGNESIUM [CHEM] AM Lab 03/20/20 05:11 Ordered PHOSPHORUS [CHEM] AM Lab 03/20/20 05:11 Ordered Phosphorus #1 [Neutra-Phos] Med 03/19/20 09:00 Active 250 mg PO QID Medication Orders Acetaminophen (Tylenol) 650 mg PO Q4H PRN PRN Reason: Pain (Mild 1-3)/fever Last Admin: 03/19/20 08:07 Dose: 650 mg Documented by: [id number] Admin: 03/18/20 17:58 Dose: 650 mg Documented by: MENSFRA Albuterol/Ipratropium (Duoneb 3.0-0.5 Mg/3 Ml) 3 ml NEB Q4HRRT PRN PRN Reason: Dyspnea Enoxaparin Sodium (Lovenox) 40 mg SUBCUT BEDTIME WYATT Last Admin: 03/18/20 22:08 Dose: 40 mg Documented by: Admin: 03/17/20 21:55 Dose: 40 mg Documented by: WALLACE Lactated Ringer's (Ringers, Lactated) 1,000 mls @ 125 mls/hr IV ASDIRECTED [facility] Last Admin: 03/19/20 15:31 Dose: 125 mls/hr Documented by: Infusion: 03/19/20 08:50 Dose: 125 mls/hr Documented by: Admin: 03/19/20 00:50 Dose: 125 mls/hr Documented by: Infusion: 03/18/20 21:17 Dose: 125 mls/hr Documented by: Admin: 03/18/20 13:17 Dose: 125 mls/hr Documented by: Infusion: 03/18/20 12:15 Dose: 125 mls/hr Documented by: Admin: 03/18/20 04:15 Dose: 125 mls/hr Documented by: Infusion: 03/18/20 01:40 Dose: 125 mls/hr Documented by: Admin: 03/17/20 17:40 Dose: 125 mls/hr Documented by: LOUANN Ceftriaxone Sodium/Dextrose 1 (gm/ Premix) 50 mls @ 100 mls/hr IV Q24H [facility] Last Admin: 03/19/20 15:38 Dose: 100 mls/hr Documented by: Infusion: 03/18/20 16:17 Dose: 100 mls/hr Documented by: Admin: 03/18/20 15:47 Dose: 100 mls/hr Documented by: LOUANN Azithromycin 500 mg/ Sodium (Chloride) 250 mls @ 250 mls/hr IV DAILY [facility] Last Admin: 03/19/20 10:39 Dose: 250 mls/hr Documented by: Infusion: 03/18/20 10:12 Dose: 250 mls/hr Documented by: Admin: 03/18/20 09:12 Dose: 250 mls/hr Documented by: LOUANN Ketorolac Tromethamine (Toradol) 15 mg IVPUSH Q6H [facility] Last Admin: 03/19/20 17:52 Dose: Not Given Documented by: Admin: 03/19/20 13:51 Dose: 15 mg Documented by: Admin: 03/19/20 08:20 Dose: 15 mg Documented by: Admin: 03/19/20 06:29 Dose: Not Given Documented by: Admin: 03/19/20 00:34 Dose: 15 mg Documented by: Admin: 03/18/20 17:55 Dose: Not Given Documented by: Admin: 03/18/20 11:53 Dose: Not Given Documented by: Admin: 03/18/20 06:26 Dose: 15 mg Documented by: Admin: 03/17/20 23:57 Dose: 15 mg Documented by: Admin: 03/17/20 17:57 Dose: 15 mg Documented by: LOUANN Ondansetron HCl (Zofran Odt) 4 mg PO Q4H PRN PRN Reason: nausea, able to take PO Last Admin: 03/18/20 17:53 Dose: 4 mg Documented by: Admin: 03/18/20 04:18 Dose: 4 mg Documented by: TAHMINA Ondansetron HCl (Zofran) 4 mg IVPUSH Q4H PRN PRN Reason: Nausea Last Admin: 03/19/20 13:57 Dose: 4 mg Documented by: KALLIE Sodium Phosphate (Neutra-Phos) 250 mg PO QID WYATT Stop: 03/20/20 00:01 Last Admin: 03/19/20 17:51 Dose: 250 mg Documented by: [id number] Admin: 03/19/20 13:54 Dose: 250 mg Documented by: Admin: 03/19/20 08:06 Dose: 250 mg Documented by: KALLIE
--- NOTE | 2020-03-17 16:53 | PCM.SN.2 ---
- Free Text/Narrative Note: Patient was presented to be by the mid-level provider, who sees patients independently as a licensed independent practitioner by [facility] and [facility] law. Up until the point that my assistance was requested, the mid-level provider has been solely, exclusively, and independently caring for this patient and they are responsible for all aspects of care including performing the history and physical, formulating medical decision making, ordering medications, and ordering and evaluating testing. I have personally and independently seen and evaluated the patient at bedside and, if available, have spoken with the with the family. I agree with the history, physical, medical decision making, and plan of treatment as documented by the mid-level provider. I have performed the medical decision making for this patient, including assessing the results of all diagnostic testing and I have instructed the mid-level provider to document the results and carry through with the treatment plan that I deemed appropriate. The final completed note is the responsibility of the mid-level provider. If needed, any other comments, a focused physical examination, or my own medical decision making are documented below. 24-year-old male with no past medical history presenting with subjective fever, cough, shortness of breath. Noted to be tachycardic and tachypneic. X-ray concerning for a left lower lobe infiltrate, suspicious for pneumonia. Negative COVID testing. Leukocytosis on ECG. Negative d-dimer. Given IV ceftriaxone, p.o. azithromycin, Toradol and Zofran along with IV fluids. Persistently tachycardic. Will admit to the hospital for community-acquired pneumonia. VASU Batres spoke with the hospitalist Dr. Tyson who agrees to admit. Suspected sepsis due to pneumonia. Lactate was less than 2, so it was not repeated. Patient was not hypotensive and lactate was under 4, so patient does not meet criteria for 30 mL/kg sepsis fluid bolus. I did request that VASU Batres order blood cultures prior to antibiotics.
[2020-03-17] MEDS ORDERED: Ketorolac 30 MG/ML SDV IVPUSH PRN (17:11)
[2020-03-17] MEDS ORDERED: Aspirin 325 MG Tab PO ONE (17:38)
[2020-03-17] MEDS ORDERED: Alum Hydrox/Mag Hydrox/Simeth 15 ML, Lidocaine 2% 5 ML PO ONE ×2 (17:39)
[2020-03-17] MEDS: Lactated Ringers 1,000 ML IV SCH (17:40)
[2020-03-17] MEDS ORDERED: Magnesium Sulfate/Water 2 GM in Premix Bag 1 BAG IV ONE (17:41)
[2020-03-17] MEDS: Ketorolac 30 MG/ML SDV IVPUSH SCH ×2 (17:57→23:57)
[2020-03-17] MEDS: Phosphorus #1 250 MG Tab PO SCH (18:32)
[2020-03-17] MEDS ORDERED: Iopamidol 755 MG/ML 50 ML Bottle IV STA (20:06)
--- NOTE | 2020-03-17 21:04 | CT ---
INDICATION: Chest pain. Fever. Cough. Negative for COVID reportedly. TECHNIQUE: Contrast-enhanced chest CT performed using the angiographic protocol. 50 cc nonionic Isovue-370 administered. COMPARISON: Correlation is made with a chest x-ray performed earlier on the same date. FINDINGS: Adequate but not optimal opacification of the pulmonary arterial tree. No convincing evidence for filling defects to indicate acute or chronic pulmonary emboli. No thoracic aortic aneurysm or dissection. No pleural or pericardial effusions. There are patchy ground-glass pulmonary opacities bilaterally predominantly in the upper lobes, right middle lobe, but also within the lower lobes, left greater than right. No pleural or pericardial effusions. No thoracic lymphadenopathy. The trachea and mainstem bronchi are patent and clear. Minor prominence of hilar/mediastinal lymph nodes may be reactive. Images the upper abdomen demonstrate normal adrenal glands. No evidence for splenomegaly. The kidneys are not fully or optimally included. The included skeleton is unremarkable. IMPRESSION: 1. Patchy fairly widespread ground-glass pulmonary infiltrates involving the upper lobes, right middle lobe, and lower lobes left greater than right. An infectious or inflammatory type process is considered most likely. A viral pneumonitis is not excluded. 2. Small mediastinal lymph nodes may be reactive. 3. No definite evidence for pulmonary emboli. No thoracic aortic aneurysm or dissection. Please note that all CT scans at this facility use dose modulation, iterative reconstruction, and/or weight-based dosing when appropriate to reduce radiation dose to as low as reasonably achievable. Dictated by Jarrett Escobar MD @ Mar 17 2020 9:02PM Signed by Dr. Jarrett Escobar @ Mar 17 2020 9:02PM
[2020-03-17] MEDS: Enoxaparin 40 MG/0.4 ML Syringe SUBCUT SCH (21:55)
[2020-03-18] MEDS: Phosphorus #1 250 MG Tab PO SCH ×3 (00:02→11:54)
[2020-03-18] MEDS: Lactated Ringers 1,000 ML IV SCH ×2 (04:15→13:17)
[2020-03-18] MEDS: Ondansetron 4 MG Tab.DIS PO PRN ×2 (04:18→17:53)
[2020-03-18] MEDS: Ketorolac 30 MG/ML SDV IVPUSH SCH ×3 (06:26→17:55)
[2020-03-18 06:46] LABS: BLOOD UREA NITROGEN,BUN 6 mg/dL (7.0-18.0); CARBON DIOXIDE,CO2 19.5 mmol/L (21.0-32.0); CHLORIDE,CL 100 mmol/L (98-107); GLUCOSE RANDOM 88 mg/dL (74-106); POTASSIUM,K 3.7 mmol/L (3.5-5.1); SODIUM,NA 134 mmol/L (136-148)
[2020-03-18] MEDS: Azithromycin 500 MG in Sodium Chloride 0.9% 250 ML IV SCH (09:12)
--- NOTE | 2020-03-18 12:08 | PCM.PN ---
- General Info Date of Service: 03/18/20 Admission Dx/Problem (Free Text): Admission Diagnosis/Problem Admission Diagnosis/Problem Pneumonia Subjective Update: feels much better, chest pain resolved, breathing improved - Review of Systems General: Denies: Fever, Weakness HEENT: Denies: Ear Pain, Eye Pain, Sore Throat, Rhinitis Cardiovascular: Denies: Chest Pain, Palpitations Gastrointestinal: Denies: Abdominal Pain, Constipation, Decreased Appetite Genitourinary: Denies: Dysuria, Frequency, Burning Musculoskeletal: Denies: Neck Pain, Shoulder Pain, Arm Pain Skin: Denies: Cyanosis, Jaundice, Mottled - Patient Data Vitals - Most Recent: Last Vital Signs Temp 37.6 C 03/18/20 08:00 Pulse 113 H 03/18/20 08:00 Resp 17 03/18/20 08:00 BP 124/68 03/18/20 08:00 Pulse Ox 96 03/18/20 08:00 Weight - Most Recent: 92.578 kg I&O - Last 24 Hours: Intake & Output 03/17/20 03/18/20 03/18/20 22:59 06:59 14:59 Intake Total 2114 Output Total 700 Balance 1414 Lab Results Last 24 Hours: Laboratory Results - last 24 hr 03/17/20 03/17/20 03/17/20 Range/Units 15:30 15:34 15:34 WBC 20.43 H (4.0-11.0) K/uL RBC 4.79 (4.50-5.90) M/uL Hgb 15.1 (13.0-17.0) g/dL Hct 42.6 (38.0-50.0) % MCV 88.9 (80.0-98.0) fL MCH 31.5 (27.0-32.0) pg MCHC 35.4 (31.0-37.0) g/dL RDW Std Deviation 41.9 (28.0-62.0) fl RDW Coeff of Debbie 13 (11.0-15.0) % Plt Count 280 (150-400) K/uL MPV 10.70 (7.40-12.00) fL Neut % (Auto) 89.2 H (48.0-80.0) % Lymph % (Auto) 6.5 L (16.0-40.0) % [place] % (Auto) 3.8 (0.0-15.0) % Eos % (Auto) 0.3 (0.0-7.0) % Baso % (Auto) 0.2 (0.0-1.5) % Neut # (Auto) 18.2 H (1.4-5.7) K/uL Lymph # (Auto) 1.3 (0.6-2.4) K/uL [place] # (Auto) 0.8 (0.0-0.8) K/uL Eos # (Auto) 0.1 (0.0-0.7) K/uL Baso # (Auto) 0.1 (0.0-0.1) K/uL Nucleated RBC % 0.0 /100WBC Nucleated RBCs # 0 K/uL D-Dimer, Quantitative 0.40 (0.0-0.50) mg/L FEU Lactate (0.20-2.00) mmol/L Sodium (136-148) mmol/L Potassium (3.5-5.1) mmol/L Chloride (98-107) mmol/L Carbon Dioxide (21.0-32.0) mmol/L BUN (7.0-18.0) mg/dL Creatinine (0.8-1.3) mg/dL Est Cr Clr Drug Dosing mL/min Estimated GFR (MDRD) ml/min Glucose (74-106) mg/dL Calcium (8.5-10.1) mg/dL Phosphorus (2.6-4.7) mg/dL Magnesium (1.8-2.4) mg/dL Total Bilirubin (0.2-1.0) mg/dL AST (15-37) IU/L ALT (14-63) IU/L Alkaline Phosphatase (46-116) U/L Troponin I (0.000-0.056) ng/mL Total Protein (6.4-8.2) g/dL Albumin (3.4-5.0) g/dL Globulin (2.6-4.0) g/dL Albumin/Globulin Ratio (0.9-1.6) TSH 3rd Generation (0.36-3.74) uIU/mL COVID-19 ([facility]) NEGATIVE (NEGATIVE) 08/08/20 08/08/20 08/08/20 Range/Units 15:34 15:34 15:34 WBC (4.0-11.0) K/uL RBC (4.50-5.90) M/uL Hgb (13.0-17.0) g/dL Hct (38.0-50.0) % MCV (80.0-98.0) fL MCH (27.0-32.0) pg MCHC (31.0-37.0) g/dL RDW Std Deviation (28.0-62.0) fl RDW Coeff of Debbie (11.0-15.0) % Plt Count (150-400) K/uL MPV (7.40-12.00) fL Neut % (Auto) (48.0-80.0) % Lymph % (Auto) (16.0-40.0) % [place] % (Auto) (0.0-15.0) % Eos % (Auto) (0.0-7.0) % Baso % (Auto) (0.0-1.5) % Neut # (Auto) (1.4-5.7) K/uL Lymph # (Auto) (0.6-2.4) K/uL [place] # (Auto) (0.0-0.8) K/uL Eos # (Auto) (0.0-0.7) K/uL Baso # (Auto) (0.0-0.1) K/uL Nucleated RBC % /100WBC Nucleated RBCs # K/uL D-Dimer, Quantitative (0.0-0.50) mg/L FEU Lactate 1.2 (0.20-2.00) mmol/L Sodium 135 L (136-148) mmol/L Potassium 3.5 (3.5-5.1) mmol/L Chloride 100 (98-107) mmol/L Carbon Dioxide 18.8 L (21.0-32.0) mmol/L BUN 9 (7.0-18.0) mg/dL Creatinine 0.9 (0.8-1.3) mg/dL Est Cr Clr Drug Dosing 137.12 mL/min Estimated GFR (MDRD) > 60.0 ml/min Glucose 92 (74-106) mg/dL Calcium 8.5 (8.5-10.1) mg/dL Phosphorus 2.3 L (2.6-4.7) mg/dL Magnesium 1.7 L (1.8-2.4) mg/dL Total Bilirubin 1.2 H (0.2-1.0) mg/dL AST 21 (15-37) IU/L ALT 19 (14-63) IU/L Alkaline Phosphatase 102 (46-116) U/L Troponin I < 0.050 (0.000-0.056) ng/mL Total Protein 8.3 H (6.4-8.2) g/dL Albumin 3.9 (3.4-5.0) g/dL Globulin 4.4 H (2.6-4.0) g/dL Albumin/Globulin Ratio 0.9 (0.9-1.6) TSH 3rd Generation 0.52 (0.36-3.74) uIU/mL COVID-19 ([facility]) (NEGATIVE) 03/17/20 03/17/20 03/18/20 Range/Units 18:34 21:33 05:55 WBC 17.08 H (4.0-11.0) K/uL RBC 4.03 L (4.50-5.90) M/uL Hgb 12.6 L (13.0-17.0) g/dL Hct 36.0 L (38.0-50.0) % MCV 89.3 (80.0-98.0) fL MCH 31.3 (27.0-32.0) pg MCHC 35.0 (31.0-37.0) g/dL RDW Std Deviation 40.6 (28.0-62.0) fl RDW Coeff of Debbie 13 (11.0-15.0) % Plt Count 228 (150-400) K/uL MPV 11.50 (7.40-12.00) fL Neut % (Auto) 89.0 H (48.0-80.0) % Lymph % (Auto) 6.4 L (16.0-40.0) % [place] % (Auto) 4.0 (0.0-15.0) % Eos % (Auto) 0.4 (0.0-7.0) % Baso % (Auto) 0.2 (0.0-1.5) % Neut # (Auto) 15.2 H (1.4-5.7) K/uL Lymph # (Auto) 1.1 (0.6-2.4) K/uL [place] # (Auto) 0.7 (0.0-0.8) K/uL Eos # (Auto) 0.1 (0.0-0.7) K/uL Baso # (Auto) 0.0 (0.0-0.1) K/uL Nucleated RBC % /100WBC Nucleated RBCs # K/uL D-Dimer, Quantitative (0.0-0.50) mg/L FEU Lactate (0.20-2.00) mmol/L Sodium (136-148) mmol/L Potassium (3.5-5.1) mmol/L Chloride (98-107) mmol/L Carbon Dioxide (21.0-32.0) mmol/L BUN (7.0-18.0) mg/dL Creatinine (0.8-1.3) mg/dL Est Cr Clr Drug Dosing mL/min Estimated GFR (MDRD) ml/min Glucose (74-106) mg/dL Calcium (8.5-10.1) mg/dL Phosphorus (2.6-4.7) mg/dL Magnesium (1.8-2.4) mg/dL Total Bilirubin (0.2-1.0) mg/dL AST (15-37) IU/L ALT (14-63) IU/L Alkaline Phosphatase (46-116) U/L Troponin I < 0.050 < 0.050 (0.000-0.056) ng/mL Total Protein (6.4-8.2) g/dL Albumin (3.4-5.0) g/dL Globulin (2.6-4.0) g/dL Albumin/Globulin Ratio (0.9-1.6) TSH 3rd Generation (0.36-3.74) uIU/mL COVID-19 ([facility]) (NEGATIVE) 03/18/20 Range/Units 05:55 WBC (4.0-11.0) K/uL RBC (4.50-5.90) M/uL Hgb (13.0-17.0) g/dL Hct (38.0-50.0) % MCV (80.0-98.0) fL MCH (27.0-32.0) pg MCHC (31.0-37.0) g/dL RDW Std Deviation (28.0-62.0) fl RDW Coeff of Debbie (11.0-15.0) % Plt Count (150-400) K/uL MPV (7.40-12.00) fL Neut % (Auto) (48.0-80.0) % Lymph % (Auto) (16.0-40.0) % [place] % (Auto) (0.0-15.0) % Eos % (Auto) (0.0-7.0) % Baso % (Auto) (0.0-1.5) % Neut # (Auto) (1.4-5.7) K/uL Lymph # (Auto) (0.6-2.4) K/uL [place] # (Auto) (0.0-0.8) K/uL Eos # (Auto) (0.0-0.7) K/uL Baso # (Auto) (0.0-0.1) K/uL Nucleated RBC % /100WBC Nucleated RBCs # K/uL D-Dimer, Quantitative (0.0-0.50) mg/L FEU Lactate (0.20-2.00) mmol/L Sodium 134 L (136-148) mmol/L Potassium 3.7 (3.5-5.1) mmol/L Chloride 100 (98-107) mmol/L Carbon Dioxide 19.5 L (21.0-32.0) mmol/L BUN 6 L (7.0-18.0) mg/dL Creatinine 0.9 (0.8-1.3) mg/dL Est Cr Clr Drug Dosing 137.12 mL/min Estimated GFR (MDRD) > 60.0 ml/min Glucose 88 (74-106) mg/dL Calcium 7.9 L (8.5-10.1) mg/dL Phosphorus 2.3 L (2.6-4.7) mg/dL Magnesium 1.6 L (1.8-2.4) mg/dL Total Bilirubin 0.9 (0.2-1.0) mg/dL AST 23 (15-37) IU/L ALT 15 (14-63) IU/L Alkaline Phosphatase 83 (46-116) U/L Troponin I (0.000-0.056) ng/mL Total Protein 6.9 (6.4-8.2) g/dL Albumin 3.1 L (3.4-5.0) g/dL Globulin 3.8 (2.6-4.0) g/dL Albumin/Globulin Ratio 0.8 L (0.9-1.6) TSH 3rd Generation (0.36-3.74) uIU/mL COVID-19 ([facility]) (NEGATIVE) Simone Results Last 24 Hours: Microbiology 03/17/20 21:33 Anaerobic Blood Culture - Final Blood - Venous - Lab Draw Med Orders - Current: Current Medications Acetaminophen (Tylenol) 650 mg PO Q4H PRN PRN Reason: Pain (Mild 1-3)/fever Albuterol/Ipratropium (Duoneb 3.0-0.5 Mg/3 Ml) 3 ml NEB Q4HRRT PRN PRN Reason: Dyspnea Enoxaparin Sodium (Lovenox) 40 mg SUBCUT BEDTIME [facility] Last Admin: 03/17/20 21:55 Dose: 40 mg Documented by: Azithromycin 500 mg/ Sodium (Chloride) 250 mls @ 250 mls/hr IV ONETIME [facility] Last Admin: 03/17/20 17:44 Dose: 250 mls/hr Documented by: Lactated Ringer's (Ringers, Lactated) 1,000 mls @ 125 mls/hr IV ASDIRECTED [facility] Last Admin: 03/18/20 04:15 Dose: 125 mls/hr Documented by: Ceftriaxone Sodium/Dextrose 1 (gm/ Premix) 50 mls @ 100 mls/hr IV Q24H [facility] Azithromycin 500 mg/ Sodium (Chloride) 250 mls @ 250 mls/hr IV DAILY [facility] Last Admin: 03/18/20 09:12 Dose: 250 mls/hr Documented by: Ketorolac Tromethamine (Toradol) 15 mg IVPUSH Q6H [facility] Last Admin: 03/18/20 11:53 Dose: Not Given Documented by: Ondansetron HCl (Zofran Odt) 4 mg PO Q4H PRN PRN Reason: nausea, able to take PO Last Admin: 03/18/20 04:18 Dose: 4 mg Documented by: Ondansetron HCl (Zofran) 4 mg IVPUSH Q4H PRN PRN Reason: Nausea Discontinued Medications Aspirin (Aspirin) 325 mg PO ONETIME ONE Stop: 03/17/20 17:39 Last Admin: 03/17/20 17:56 Dose: 325 mg Documented by: Al Hydroxide/Mg Hydroxide 15 (ml/ Lidocaine HCl 5 ml) 0 ml PO ONETIME ONE Stop: 03/17/20 17:40 Last Admin: 03/17/20 18:04 Dose: 20 each Documented by: Sodium Chloride (Normal Saline) 1,000 mls @ 999 mls/hr IV STAT ONE Stop: 03/17/20 16:02 Last Admin: 03/17/20 15:26 Dose: 999 mls/hr Documented by: Ceftriaxone Sodium/Dextrose 1 (gm/ Premix) 50 mls @ 100 mls/hr IV ONETIME ONE Stop: 03/17/20 16:40 Last Admin: 03/17/20 16:30 Dose: 100 mls/hr Documented by: Magnesium Sulfate 2 gm/ Premix 50 mls @ 50 mls/hr IV ONETIME ONE Stop: 03/17/20 18:40 Last Admin: 03/17/20 19:16 Dose: 50 mls/hr Documented by: Iopamidol ([id number] (76%)) 50 ml IV ONETIME STA Stop: 03/17/20 20:07 Last Admin: 03/17/20 20:07 Dose: 50 ml Documented by: Ketorolac Tromethamine (Toradol) 30 mg IVPUSH ONETIME ONE Stop: 03/17/20 15:03 Last Admin: 03/17/20 15:29 Dose: 30 mg Documented by: Ketorolac Tromethamine (Toradol) 30 mg IVPUSH Q6H PRN PRN Reason: Pain Ondansetron HCl (Zofran) 4 mg IVPUSH ONETIME ONE Stop: 03/17/20 15:03 Last Admin: 03/17/20 15:27 Dose: 4 mg Documented by: Sodium Phosphate (Neutra-Phos) 250 mg PO QID [facility] Stop: 03/18/20 12:01 Last Admin: 03/18/20 11:54 Dose: 250 mg Documented by: - Exam Quality Assessment: No: Supplemental Oxygen General: Alert, Oriented Neck: Supple Lungs: Clear to Auscultation, Normal Respiratory Effort Cardiovascular: Regular Rate, Regular Rhythm GI/Abdominal Exam: Normal Bowel Sounds, Soft, Non-Tender Sepsis Event Note - Evaluation Sepsis Screening Result: Sepsis Risk - Focused Exam Vital Signs: Vital Signs Temp Pulse Resp BP Pulse Ox 03/18/20 08:00 37.6 C 113 H 17 124/68 96 03/18/20 04:00 37.2 C 114 H 16 115/70 95 03/18/20 00:55 36.9 C Date Exam was Performed: 03/18/20 Time Exam was Performed: 12:05 - Problem List & Annotations (1) Pneumonia SNOMED Code(s): 880180584 Code(s): J18.9 - PNEUMONIA, UNSPECIFIED ORGANISM Status: Acute Current Visit: Yes - Problem List Review Problem List Initiated/Reviewed/Updated: Yes - My Orders Last 24 Hours: My Active Orders 03/17/20 17:57 Telemetry Monitoring [Cardiac Monitoring] [RC] Q8H 03/17/20 20:24 Blood Culture x2 Reflex Set [OM.PC] Stat 03/17/20 21:23 CULTURE BLOOD [BC] Stat 03/17/20 21:33 CULTURE BLOOD [BC] Stat 03/18/20 06:38 STREP PNEUMONIAE ANTIGEN [MREF] Routine - Plan Plan:: Assessment and Plan: 1. Sepsis secondary to community-acquired pneumonia: - Resolved, WBC count improving but still high, cont IV ceftriaxone and IV azithromycin. DuoNebs q4 PRN, incentive spirometer, Blood cultures pending. Lactate level normal. Vital signs are stable. cont IV maintenance fluids. - CXR: left lower lung opacity. CT angio confirmed CAP, COVID19 test negative. 2. Atypical chest pain: - resolved, ACS and PE ruled out 3. DVT prophylaxis: lovenox.
[2020-03-18] MEDS ORDERED: Magnesium Sulfate (4.06 MEQ/ML) 5 GM/10 ML SDV IV ONE (12:57)
[2020-03-18] MEDS ORDERED: Magnesium Sulfate/Water 2 GM in Premix Bag 1 BAG IV ONE (13:00)
[2020-03-18] MEDS: cefTRIAXone 1 GM in Premix Bag 1 BAG IV SCH (15:47)
[2020-03-18] MEDS: Acetaminophen 325 MG Tab PO PRN (17:58)
[2020-03-18] MEDS: Enoxaparin 40 MG/0.4 ML Syringe SUBCUT SCH (22:08)
[2020-03-19] MEDS: Ketorolac 30 MG/ML SDV IVPUSH SCH ×6 (00:34→23:43)
[2020-03-19] MEDS: Lactated Ringers 1,000 ML IV SCH ×3 (00:50→23:46)
[2020-03-19] MEDS ORDERED: Lactated Ringers 1,000 ML IV ONE ×3 (01:32→23:59)
[2020-03-19 06:07] LABS: BLOOD UREA NITROGEN,BUN 4 mg/dL (7.0-18.0); CARBON DIOXIDE,CO2 21.3 mmol/L (21.0-32.0); CHLORIDE,CL 102 mmol/L (98-107); GLUCOSE RANDOM 100 mg/dL (74-106); POTASSIUM,K 3.4 mmol/L (3.5-5.1); SODIUM,NA 135 mmol/L (136-148)
[2020-03-19] MEDS ORDERED: Potassium Chloride 20 MEQ Tab.ER PO ONE (07:25)
[2020-03-19] MEDS ORDERED: Magnesium Sulfate/Water 4 GM in Premix Bag 1 BAG IV ONE (07:26)
[2020-03-19] MEDS: Phosphorus #1 250 MG Tab PO SCH ×4 (08:06→23:43)
[2020-03-19] MEDS: Acetaminophen 325 MG Tab PO PRN ×2 (08:07→19:47)
--- NOTE | 2020-03-19 08:30 | PCM.PN ---
<Francisco Ruiz - Last Filed: 03/19/20 11:15> - General Info Date of Service: 03/19/20 Subjective Update: Reports breathing better today, eating and drinking appropriately. Denies any chest pain. - Patient Data Vitals - Most Recent: Last Vital Signs Temp 37.6 C 03/19/20 08:00 Pulse 107 H 03/19/20 08:00 Resp 18 03/19/20 08:00 BP 125/64 03/19/20 08:00 Pulse Ox 91 L 03/19/20 08:00 Weight - Most Recent: 92.578 kg I&O - Last 24 Hours: Intake & Output 03/18/20 03/19/20 03/19/20 22:59 06:59 14:59 Intake Total 900 4596 Output Total 350 Balance 900 4246 Lab Results Last 24 Hours: Laboratory Results - last 24 hr 03/19/20 03/19/20 03/19/20 Range/Units 05:35 05:35 05:35 WBC 14.96 H (4.0-11.0) K/uL RBC 3.77 L (4.50-5.90) M/uL Hgb 11.8 L (13.0-17.0) g/dL Hct 33.2 L (38.0-50.0) % MCV 88.1 (80.0-98.0) fL MCH 31.3 (27.0-32.0) pg MCHC 35.5 (31.0-37.0) g/dL RDW Std Deviation 39.2 (28.0-62.0) fl RDW Coeff of Debbie 13 (11.0-15.0) % Plt Count 226 (150-400) K/uL MPV 11.00 (7.40-12.00) fL Neut % (Auto) 88.8 H (48.0-80.0) % Lymph % (Auto) 6.4 L (16.0-40.0) % [place] % (Auto) 4.3 (0.0-15.0) % Eos % (Auto) 0.3 (0.0-7.0) % Baso % (Auto) 0.2 (0.0-1.5) % Neut # (Auto) 13.3 H (1.4-5.7) K/uL Lymph # (Auto) 1.0 (0.6-2.4) K/uL [place] # (Auto) 0.6 (0.0-0.8) K/uL Eos # (Auto) 0.1 (0.0-0.7) K/uL Baso # (Auto) 0.0 (0.0-0.1) K/uL Sodium 135 L (136-148) mmol/L Potassium 3.4 L (3.5-5.1) mmol/L Chloride 102 (98-107) mmol/L Carbon Dioxide 21.3 (21.0-32.0) mmol/L BUN 4 L (7.0-18.0) mg/dL Creatinine 0.8 (0.8-1.3) mg/dL Est Cr Clr Drug Dosing 154.26 mL/min Estimated GFR (MDRD) > 60.0 ml/min Glucose 100 (74-106) mg/dL Calcium 7.7 L (8.5-10.1) mg/dL Phosphorus 1.6 L (2.6-4.7) mg/dL Magnesium 1.4 L (1.8-2.4) mg/dL Albumin 2.7 L (3.4-5.0) g/dL Simone Results Last 24 Hours: Microbiology 03/17/20 21:33 Aerobic Blood Culture - Preliminary Blood - Venous - Lab Draw NO GROWTH AFTER 1 DAY Anaerobic Blood Culture - Final 03/17/20 21:23 Aerobic Blood Culture - Preliminary Blood - Venous NO GROWTH AFTER 1 DAY Anaerobic Blood Culture - Preliminary NO GROWTH AFTER 1 DAY Med Orders - Current: Current Medications Acetaminophen (Tylenol) 650 mg PO Q4H PRN PRN Reason: Pain (Mild 1-3)/fever Last Admin: 03/19/20 08:07 Dose: 650 mg Documented by: Albuterol/Ipratropium (Duoneb 3.0-0.5 Mg/3 Ml) 3 ml NEB Q4HRRT PRN PRN Reason: Dyspnea Enoxaparin Sodium (Lovenox) 40 mg SUBCUT BEDTIME [facility] Last Admin: 03/18/20 22:08 Dose: 40 mg Documented by: Lactated Ringer's (Ringers, Lactated) 1,000 mls @ 125 mls/hr IV ASDIRECTED [facility] Last Admin: 03/19/20 00:50 Dose: 125 mls/hr Documented by: Ceftriaxone Sodium/Dextrose 1 (gm/ Premix) 50 mls @ 100 mls/hr IV Q24H [facility] Last Admin: 03/18/20 15:47 Dose: 100 mls/hr Documented by: Azithromycin 500 mg/ Sodium (Chloride) 250 mls @ 250 mls/hr IV DAILY [facility] Last Admin: 03/18/20 09:12 Dose: 250 mls/hr Documented by: Magnesium Sulfate 4 gm/ Premix 100 mls @ 50 mls/hr IV ONETIME ONE Stop: 03/19/20 09:25 Last Admin: 03/19/20 08:07 Dose: 50 mls/hr Documented by: Ketorolac Tromethamine (Toradol) 15 mg IVPUSH Q6H [facility] Last Admin: 03/19/20 08:20 Dose: 15 mg Documented by: Ondansetron HCl (Zofran Odt) 4 mg PO Q4H PRN PRN Reason: nausea, able to take PO Last Admin: 03/18/20 17:53 Dose: 4 mg Documented by: Ondansetron HCl (Zofran) 4 mg IVPUSH Q4H PRN PRN Reason: Nausea Sodium Phosphate (Neutra-Phos) 250 mg PO QID [facility] Stop: 03/20/20 00:01 Last Admin: 03/19/20 08:06 Dose: 250 mg Documented by: Discontinued Medications Aspirin (Aspirin) 325 mg PO ONETIME ONE Stop: 03/17/20 17:39 Last Admin: 03/17/20 17:56 Dose: 325 mg Documented by: Al Hydroxide/Mg Hydroxide 15 (ml/ Lidocaine HCl 5 ml) 0 ml PO ONETIME ONE Stop: 03/17/20 17:40 Last Admin: 03/17/20 18:04 Dose: 20 each Documented by: Sodium Chloride (Normal Saline) 1,000 mls @ 999 mls/hr IV STAT ONE Stop: 03/17/20 16:02 Last Admin: 03/17/20 15:26 Dose: 999 mls/hr Documented by: Azithromycin 500 mg/ Sodium (Chloride) 250 mls @ 250 mls/hr IV ONETIME [facility] Last Admin: 03/17/20 17:44 Dose: 250 mls/hr Documented by: Ceftriaxone Sodium/Dextrose 1 (gm/ Premix) 50 mls @ 100 mls/hr IV ONETIME ONE Stop: 03/17/20 16:40 Last Admin: 03/17/20 16:30 Dose: 100 mls/hr Documented by: Magnesium Sulfate 2 gm/ Premix 50 mls @ 50 mls/hr IV ONETIME ONE Stop: 03/17/20 18:40 Last Admin: 03/17/20 19:16 Dose: 50 mls/hr Documented by: Magnesium Sulfate 2 gm/ Premix 50 mls @ 50 mls/hr IV ONETIME ONE Stop: 03/18/20 13:59 Last Admin: 03/18/20 13:18 Dose: 50 mls/hr Documented by: Lactated Ringer's (Ringers, Lactated) 1,000 mls @ 999 mls/hr IV BOLUS ONE Stop: 03/20/20 00:59 Lactated Ringer's (Ringers, Lactated) 1,000 mls @ 999 mls/hr IV BOLUS ONE Stop: 03/19/20 02:32 Last Admin: 03/19/20 01:52 Dose: 999 mls/hr Documented by: Iopamidol (Isovue-370 (76%)) 50 ml IV ONETIME [facility] Stop: 03/17/20 20:07 Last Admin: 03/17/20 20:07 Dose: 50 ml Documented by: Ketorolac Tromethamine (Toradol) 30 mg IVPUSH ONETIME ONE Stop: 03/17/20 15:03 Last Admin: 03/17/20 15:29 Dose: 30 mg Documented by: Ketorolac Tromethamine (Toradol) 30 mg IVPUSH Q6H PRN PRN Reason: Pain Ondansetron HCl (Zofran) 4 mg IVPUSH ONETIME ONE Stop: 03/17/20 15:03 Last Admin: 03/17/20 15:27 Dose: 4 mg Documented by: Potassium Chloride (Klor-Con M20) 40 meq PO ONETIME ONE Stop: 03/19/20 07:26 Last Admin: 03/19/20 08:06 Dose: 40 meq Documented by: Sodium Phosphate (Neutra-Phos) 250 mg PO QID [facility] Stop: 03/18/20 12:01 Last Admin: 03/18/20 11:54 Dose: 250 mg Documented by: - Exam General: Alert, Oriented, Cooperative, No Acute Distress Lungs: Clear to Auscultation, Normal Respiratory Effort Cardiovascular: Regular Rhythm, Tachycardia GI/Abdominal Exam: Normal Bowel Sounds, Soft, Non-Tender, No Distention Extremities: Normal Inspection, No Pedal Edema Sepsis Event Note - Evaluation Sepsis Screening Result: Sepsis Risk - Focused Exam Vital Signs: Vital Signs Temp Pulse Resp BP Pulse Ox 03/19/20 08:00 37.6 C 107 H 18 125/64 91 L 03/19/20 04:00 37.1 C 110 H 17 127/67 94 L 03/19/20 00:43 37.2 C 112 H 17 127/68 93 L Date Exam was Performed: 03/19/20 Time Exam was Performed: 11:15 - Problem List Review Problem List Initiated/Reviewed/Updated: Yes - My Orders Last 24 Hours: My Active Orders 03/18/20 09:00 Azithromycin [Zithromax] 500 mg Sodium Chloride 0.9% [Normal Saline (AdvBag)] 250 ml IV DAILY 03/18/20 16:00 [email or web address] [Rocephin in Dextrose,Iso-Osm 1 GM/50 ML] 1 gm Premix Bag 1 bag IV Q24H 03/19/20 07:26 Magnesium Sulfate/Water [Magnesium Sulfate in Water Premix] 4 gm Premix Bag 1 bag IV ONETIME 03/19/20 09:00 Phosphorus #1 [Neutra-Phos] 250 mg PO QID - Plan Plan:: Assessment and Plan: 1. Sepsis secondary to community-acquired pneumonia: - Leukocytosis is downtrending. Will continue IV ceftriaxone, IV azithromycin, DuoNebs q4 PRN and incentive spirometer. Blood cultures negative. Continue IV LR's 125 cc/hr. Will give 1L IV LR bolus today. Electrolytes repleted as needed. - CXR: left lower lung opacity. CT angio confirmed CAP and no pulmonary embolism. COVID19 test negative. 2. Atypical chest pain, resolved: - ACS and PE ruled out. 3. DVT prophylaxis: lovenox. <Zena Tyson - Last Filed: 03/19/20 19:08> - General Info Subjective Update: I have seen and evaluated the patient and agree with the residents note unless specified in my note - Patient Data Vitals - Most Recent: Last Vital Signs Temp 37.4 C 03/19/20 16:00 Pulse 104 H 03/19/20 16:00 Resp 16 08/10/20 16:00 BP 138/82 03/19/20 16:00 Pulse Ox 92 L 03/19/20 17:00 I&O - Last 24 Hours: Intake & Output 03/19/20 03/19/20 03/19/20 06:59 14:59 22:59 Intake Total 4596 350 750 Output Total 350 Balance 4246 350 750 Lab Results Last 24 Hours: Laboratory Results - last 24 hr 03/19/20 03/19/20 03/19/20 Range/Units 05:35 05:35 05:35 WBC 14.96 H (4.0-11.0) K/uL RBC 3.77 L (4.50-5.90) M/uL Hgb 11.8 L (13.0-17.0) g/dL Hct 33.2 L (38.0-50.0) % MCV 88.1 (80.0-98.0) fL MCH 31.3 (27.0-32.0) pg MCHC 35.5 (31.0-37.0) g/dL RDW Std Deviation 39.2 (28.0-62.0) fl RDW Coeff of Debbie 13 (11.0-15.0) % Plt Count 226 (150-400) K/uL MPV 11.00 (7.40-12.00) fL Neut % (Auto) 88.8 H (48.0-80.0) % Lymph % (Auto) 6.4 L (16.0-40.0) % [place] % (Auto) 4.3 (0.0-15.0) % Eos % (Auto) 0.3 (0.0-7.0) % Baso % (Auto) 0.2 (0.0-1.5) % Neut # (Auto) 13.3 H (1.4-5.7) K/uL Lymph # (Auto) 1.0 (0.6-2.4) K/uL [place] # (Auto) 0.6 (0.0-0.8) K/uL Eos # (Auto) 0.1 (0.0-0.7) K/uL Baso # (Auto) 0.0 (0.0-0.1) K/uL Sodium 135 L (136-148) mmol/L Potassium 3.4 L (3.5-5.1) mmol/L Chloride 102 (98-107) mmol/L Carbon Dioxide 21.3 (21.0-32.0) mmol/L BUN 4 L (7.0-18.0) mg/dL Creatinine 0.8 (0.8-1.3) mg/dL Est Cr Clr Drug Dosing 154.26 mL/min Estimated GFR (MDRD) > 60.0 ml/min Glucose 100 (74-106) mg/dL Calcium 7.7 L (8.5-10.1) mg/dL Phosphorus 1.6 L (2.6-4.7) mg/dL Magnesium 1.4 L (1.8-2.4) mg/dL Albumin 2.7 L (3.4-5.0) g/dL Simone Results Last 24 Hours: Microbiology 03/17/20 21:33 Aerobic Blood Culture - Preliminary Blood - Venous - Lab Draw NO GROWTH AFTER 1 DAY Anaerobic Blood Culture - Final 03/17/20 21:23 Aerobic Blood Culture - Preliminary Blood - Venous NO GROWTH AFTER 1 DAY Anaerobic Blood Culture - Preliminary NO GROWTH AFTER 1 DAY Med Orders - Current: Current Medications Acetaminophen (Tylenol) 650 mg PO Q4H PRN PRN Reason: Pain (Mild 1-3)/fever Last Admin: 03/19/20 08:07 Dose: 650 mg Documented by: Albuterol/Ipratropium (Duoneb 3.0-0.5 Mg/3 Ml) 3 ml NEB Q4HRRT PRN PRN Reason: Dyspnea Enoxaparin Sodium (Lovenox) 40 mg SUBCUT BEDTIME [facility] Last Admin: 03/18/20 22:08 Dose: 40 mg Documented by: Lactated Ringer's (Ringers, Lactated) 1,000 mls @ 125 mls/hr IV ASDIRECTED [facility] Last Admin: 03/19/20 15:31 Dose: 125 mls/hr Documented by: Ceftriaxone Sodium/Dextrose 1 (gm/ Premix) 50 mls @ 100 mls/hr IV Q24H [facility] Last Admin: 03/19/20 15:38 Dose: 100 mls/hr Documented by: Azithromycin 500 mg/ Sodium (Chloride) 250 mls @ 250 mls/hr IV DAILY [facility] Last Admin: 03/19/20 10:39 Dose: 250 mls/hr Documented by: Ketorolac Tromethamine (Toradol) 15 mg IVPUSH Q6H [facility] Last Admin: 03/19/20 17:52 Dose: Not Given Documented by: Ondansetron HCl (Zofran Odt) 4 mg PO Q4H PRN PRN Reason: nausea, able to take PO Last Admin: 03/18/20 17:53 Dose: 4 mg Documented by: Ondansetron HCl (Zofran) 4 mg IVPUSH Q4H PRN PRN Reason: Nausea Last Admin: 03/19/20 13:57 Dose: 4 mg Documented by: Sodium Phosphate (Neutra-Phos) 250 mg PO QID [facility] Stop: 03/20/20 00:01 Last Admin: 03/19/20 17:51 Dose: 250 mg Documented by: Discontinued Medications Aspirin (Aspirin) 325 mg PO ONETIME ONE Stop: 03/17/20 17:39 Last Admin: 03/17/20 17:56 Dose: 325 mg Documented by: Al Hydroxide/Mg Hydroxide 15 (ml/ Lidocaine HCl 5 ml) 0 ml PO ONETIME ONE Stop: 03/17/20 17:40 Last Admin: 03/17/20 18:04 Dose: 20 each Documented by: Sodium Chloride (Normal Saline) 1,000 mls @ 999 mls/hr IV STAT ONE Stop: 03/17/20 16:02 Last Admin: 03/17/20 15:26 Dose: 999 mls/hr Documented by: Azithromycin 500 mg/ Sodium (Chloride) 250 mls @ 250 mls/hr IV ONETIME [facility] Last Admin: 03/17/20 17:44 Dose: 250 mls/hr Documented by: Ceftriaxone Sodium/Dextrose 1 (gm/ Premix) 50 mls @ 100 mls/hr IV ONETIME ONE Stop: 03/17/20 16:40 Last Admin: 03/17/20 16:30 Dose: 100 mls/hr Documented by: Magnesium Sulfate 2 gm/ Premix 50 mls @ 50 mls/hr IV ONETIME ONE Stop: 03/17/20 18:40 Last Admin: 03/17/20 19:16 Dose: 50 mls/hr Documented by: Magnesium Sulfate 2 gm/ Premix 50 mls @ 50 mls/hr IV ONETIME ONE Stop: 03/18/20 13:59 Last Admin: 03/18/20 13:18 Dose: 50 mls/hr Documented by: Lactated Ringer's (Ringers, Lactated) 1,000 mls @ 999 mls/hr IV BOLUS ONE Stop: 03/20/20 00:59 Lactated Ringer's (Ringers, Lactated) 1,000 mls @ 999 mls/hr IV BOLUS ONE Stop: 03/19/20 02:32 Last Admin: 03/19/20 01:52 Dose: 999 mls/hr Documented by: Magnesium Sulfate 4 gm/ Premix 100 mls @ 50 mls/hr IV ONETIME ONE Stop: 03/19/20 09:25 Last Admin: 03/19/20 08:07 Dose: 50 mls/hr Documented by: Lactated Ringer's (Ringers, Lactated) 1,000 mls @ 999 mls/hr IV .BOLUS ONE Stop: 03/19/20 11:45 Last Admin: 03/19/20 14:00 Dose: 999 mls/hr Documented by: Iopamidol (Isovue-370 (76%)) 50 ml IV ONETIME [facility] Stop: 03/17/20 20:07 Last Admin: 03/17/20 20:07 Dose: 50 ml Documented by: Ketorolac Tromethamine (Toradol) 30 mg IVPUSH ONETIME ONE Stop: 03/17/20 15:03 Last Admin: 03/17/20 15:29 Dose: 30 mg Documented by: Ketorolac Tromethamine (Toradol) 30 mg IVPUSH Q6H PRN PRN Reason: Pain Ondansetron HCl (Zofran) 4 mg IVPUSH ONETIME ONE Stop: 03/17/20 15:03 Last Admin: 03/17/20 15:27 Dose: 4 mg Documented by: Potassium Chloride (Klor-Con M20) 40 meq PO ONETIME ONE Stop: 03/19/20 07:26 Last Admin: 03/19/20 08:06 Dose: 40 meq Documented by: Sodium Phosphate (Neutra-Phos) 250 mg PO QID [facility] Stop: 03/18/20 12:01 Last Admin: 03/18/20 11:54 Dose: 250 mg Documented by: Sepsis Event Note - Focused Exam Vital Signs: Vital Signs Temp Pulse Resp BP Pulse Ox Pulse Ox 03/19/20 17:00 92 L 03/19/20 16:00 37.4 C 104 H 16 138/82 93 L 03/19/20 12:00 37 C 94 16 126/78 97 03/19/20 08:00 37.6 C 107 H 18 125/64 91 L Date Exam was Performed: 03/19/20 Time Exam was Performed: 19:08 - Problem List & Annotations (1) Pneumonia SNOMED Code(s): 156646245 Code(s): J18.9 - PNEUMONIA, UNSPECIFIED ORGANISM Status: Acute Current Visit: Yes
[2020-03-19] MEDS: Azithromycin 500 MG in Sodium Chloride 0.9% 250 ML IV SCH (10:39)
[2020-03-19] MEDS: Ondansetron 4 MG/2 ML SDV IVPUSH PRN (13:57)
[2020-03-19] MEDS: cefTRIAXone 1 GM in Premix Bag 1 BAG IV SCH (15:38)
[2020-03-19] MEDS: Enoxaparin 40 MG/0.4 ML Syringe SUBCUT SCH (21:09)
[2020-03-20] MEDS: Ketorolac 30 MG/ML SDV IVPUSH SCH ×4 (05:32→23:26)
[2020-03-20 06:05] LABS: BLOOD UREA NITROGEN,BUN 3 mg/dL (7.0-18.0); CARBON DIOXIDE,CO2 20.5 mmol/L (21.0-32.0); CHLORIDE,CL 102 mmol/L (98-107); GLUCOSE RANDOM 88 mg/dL (74-106); POTASSIUM,K 3.1 mmol/L (3.5-5.1); SODIUM,NA 135 mmol/L (136-148)
[2020-03-20] MEDS: Benzonatate 100 MG Cap PO PRN ×2 (06:07→12:44)
[2020-03-20] MEDS ORDERED: Potassium Chloride 20 MEQ Tab.ER PO ONE (07:07)
[2020-03-20] MEDS ORDERED: Magnesium Sulfate/Water 2 GM in Premix Bag 1 BAG IV ONE (07:08)
[2020-03-20] MEDS: Lactated Ringers 1,000 ML IV SCH ×3 (07:36→23:03)
[2020-03-20] MEDS: Acetaminophen 325 MG Tab PO PRN ×3 (08:00→23:03)
[2020-03-20] MEDS: Ondansetron 4 MG Tab.DIS PO PRN (08:16)
--- NOTE | 2020-03-20 08:39 | PCM.PN ---
- General Info Date of Service: 03/20/20 Subjective Update: Reports coughing overnight and had fever yesterday evening. Denies SOB, chest pain, nausea or vomiting. - Patient Data Vitals - Most Recent: Last Vital Signs Temp 38.1 C 03/20/20 08:00 Pulse 107 H 03/20/20 07:36 Resp 18 03/20/20 07:36 BP 139/86 03/20/20 07:36 Pulse Ox 92 L 03/20/20 07:36 Weight - Most Recent: 92.578 kg I&O - Last 24 Hours: Intake & Output 03/19/20 03/20/20 03/20/20 22:59 06:59 14:59 Intake Total 750 1838 Output Total 1175 Balance 750 663 Lab Results Last 24 Hours: Laboratory Results - last 24 hr 03/20/20 03/20/20 Range/Units 05:35 05:35 WBC 11.86 H (4.0-11.0) K/uL RBC 3.74 L (4.50-5.90) M/uL Hgb 11.7 L (13.0-17.0) g/dL Hct 32.9 L (38.0-50.0) % MCV 88.0 (80.0-98.0) fL MCH 31.3 (27.0-32.0) pg MCHC 35.6 (31.0-37.0) g/dL RDW Std Deviation 38.8 (28.0-62.0) fl RDW Coeff of Debbie 12 (11.0-15.0) % Plt Count 247 (150-400) K/uL MPV 10.90 (7.40-12.00) fL Neut % (Auto) 86.1 H (48.0-80.0) % Lymph % (Auto) 8.2 L (16.0-40.0) % [place] % (Auto) 4.1 (0.0-15.0) % Eos % (Auto) 1.3 (0.0-7.0) % Baso % (Auto) 0.3 (0.0-1.5) % Neut # (Auto) 10.2 H (1.4-5.7) K/uL Lymph # (Auto) 1.0 (0.6-2.4) K/uL [place] # (Auto) 0.5 (0.0-0.8) K/uL Eos # (Auto) 0.2 (0.0-0.7) K/uL Baso # (Auto) 0.0 (0.0-0.1) K/uL Sodium 135 L (136-148) mmol/L Potassium 3.1 L (3.5-5.1) mmol/L Chloride 102 (98-107) mmol/L Carbon Dioxide 20.5 L (21.0-32.0) mmol/L BUN 3 L (7.0-18.0) mg/dL Creatinine 0.6 L (0.8-1.3) mg/dL Est Cr Clr Drug Dosing 205.68 mL/min Estimated GFR (MDRD) > 60.0 ml/min Glucose 88 (74-106) mg/dL Calcium 7.7 L (8.5-10.1) mg/dL Phosphorus 2.0 L (2.6-4.7) mg/dL Magnesium 1.5 L (1.8-2.4) mg/dL Albumin 2.5 L (3.4-5.0) g/dL [place] Results Last 24 Hours: Microbiology 03/18/20 06:38 Streptococcus pneumoniae Antigen (M - Final Urine 03/17/20 21:33 Aerobic Blood Culture - Preliminary Blood - Venous - Lab Draw NO GROWTH AFTER 2 DAYS Anaerobic Blood Culture - Final 03/17/20 21:23 Aerobic Blood Culture - Preliminary Blood - Venous NO GROWTH AFTER 2 DAYS Anaerobic Blood Culture - Preliminary NO GROWTH AFTER 2 DAYS Med Orders - Current: Current Medications Acetaminophen (Tylenol) 650 mg PO Q4H PRN PRN Reason: Pain (Mild 1-3)/fever Last Admin: 03/20/20 08:00 Dose: 650 mg Documented by: Albuterol/Ipratropium (Duoneb 3.0-0.5 Mg/3 Ml) 3 ml NEB Q4HRRT PRN PRN Reason: Dyspnea Benzonatate (Tessalon Perles) 100 mg PO Q6H PRN PRN Reason: Cough Last Admin: 03/20/20 06:07 Dose: 100 mg Documented by: Enoxaparin Sodium (Lovenox) 40 mg SUBCUT BEDTIME [facility] Last Admin: 03/19/20 21:09 Dose: 40 mg Documented by: Lactated Ringer's (Ringers, Lactated) 1,000 mls @ 125 mls/hr IV ASDIRECTED [facility] Last Admin: 03/20/20 07:36 Dose: 125 mls/hr Documented by: Ceftriaxone Sodium/Dextrose 1 (gm/ Premix) 50 mls @ 100 mls/hr IV Q24H [facility] Last Admin: 03/19/20 15:38 Dose: 100 mls/hr Documented by: Azithromycin 500 mg/ Sodium (Chloride) 250 mls @ 250 mls/hr IV DAILY [facility] Last Admin: 03/19/20 10:39 Dose: 250 mls/hr Documented by: Ketorolac Tromethamine (Toradol) 15 mg IVPUSH Q6H [facility] Last Admin: 03/20/20 05:32 Dose: 15 mg Documented by: Ondansetron HCl (Zofran Odt) 4 mg PO Q4H PRN PRN Reason: nausea, able to take PO Last Admin: 03/20/20 08:16 Dose: 4 mg Documented by: Ondansetron HCl (Zofran) 4 mg IVPUSH Q4H PRN PRN Reason: Nausea Last Admin: 03/19/20 13:57 Dose: 4 mg Documented by: Sodium Phosphate (Neutra-Phos) 250 mg PO QID [facility] Stop: 03/21/20 06:01 Discontinued Medications Aspirin (Aspirin) 325 mg PO ONETIME ONE Stop: 03/17/20 17:39 Last Admin: 03/17/20 17:56 Dose: 325 mg Documented by: Al Hydroxide/Mg Hydroxide 15 (ml/ Lidocaine HCl 5 ml) 0 ml PO ONETIME ONE Stop: 03/17/20 17:40 Last Admin: 03/17/20 18:04 Dose: 20 each Documented by: Sodium Chloride (Normal Saline) 1,000 mls @ 999 mls/hr IV STAT ONE Stop: 03/17/20 16:02 Last Admin: 03/17/20 15:26 Dose: 999 mls/hr Documented by: Azithromycin 500 mg/ Sodium (Chloride) 250 mls @ 250 mls/hr IV ONETIME [facility] Last Admin: 03/17/20 17:44 Dose: 250 mls/hr Documented by: Ceftriaxone Sodium/Dextrose 1 (gm/ Premix) 50 mls @ 100 mls/hr IV ONETIME ONE Stop: 03/17/20 16:40 Last Admin: 03/17/20 16:30 Dose: 100 mls/hr Documented by: Magnesium Sulfate 2 gm/ Premix 50 mls @ 50 mls/hr IV ONETIME ONE Stop: 03/17/20 18:40 Last Admin: 03/17/20 19:16 Dose: 50 mls/hr Documented by: Magnesium Sulfate 2 gm/ Premix 50 mls @ 50 mls/hr IV ONETIME ONE Stop: 03/18/20 13:59 Last Admin: 03/18/20 13:18 Dose: 50 mls/hr Documented by: Lactated Ringer's (Ringers, Lactated) 1,000 mls @ 999 mls/hr IV BOLUS ONE Stop: 03/20/20 00:59 Lactated Ringer's (Ringers, Lactated) 1,000 mls @ 999 mls/hr IV BOLUS ONE Stop: 03/19/20 02:32 Last Admin: 03/19/20 01:52 Dose: 999 mls/hr Documented by: Magnesium Sulfate 4 gm/ Premix 100 mls @ 50 mls/hr IV ONETIME ONE Stop: 03/19/20 09:25 Last Admin: 03/19/20 08:07 Dose: 50 mls/hr Documented by: Lactated Ringer's (Ringers, Lactated) 1,000 mls @ 999 mls/hr IV .BOLUS ONE Stop: 03/19/20 11:45 Last Admin: 03/19/20 14:00 Dose: 999 mls/hr Documented by: Magnesium Sulfate 2 gm/ Premix 50 mls @ 50 mls/hr IV ONETIME ONE Stop: 03/20/20 08:07 Last Admin: 03/20/20 07:53 Dose: 50 mls/hr Documented by: Iopamidol (Isovue-370 (76%)) 50 ml IV ONETIME [facility] Stop: 03/17/20 20:07 Last Admin: 03/17/20 20:07 Dose: 50 ml Documented by: Ketorolac Tromethamine (Toradol) 30 mg IVPUSH ONETIME ONE Stop: 03/17/20 15:03 Last Admin: 03/17/20 15:29 Dose: 30 mg Documented by: Ketorolac Tromethamine (Toradol) 30 mg IVPUSH Q6H PRN PRN Reason: Pain Ondansetron HCl (Zofran) 4 mg IVPUSH ONETIME ONE Stop: 03/17/20 15:03 Last Admin: 03/17/20 15:27 Dose: 4 mg Documented by: Potassium Chloride (Klor-Con M20) 40 meq PO ONETIME ONE Stop: 03/19/20 07:26 Last Admin: 03/19/20 08:06 Dose: 40 meq Documented by: Potassium Chloride (Klor-Con M20) 40 meq PO ONETIME ONE Stop: 03/20/20 07:08 Last Admin: 03/20/20 07:53 Dose: 40 meq Documented by: Sodium Phosphate (Neutra-Phos) 250 mg PO QID [facility] Stop: 03/18/20 12:01 Last Admin: 03/18/20 11:54 Dose: 250 mg Documented by: Sodium Phosphate (Neutra-Phos) 250 mg PO QID [facility] Stop: 03/20/20 00:01 Last Admin: 03/19/20 23:43 Dose: 250 mg Documented by: - Exam General: Alert, Oriented, Cooperative, No Acute Distress Lungs: Clear to Auscultation, Normal Respiratory Effort Cardiovascular: Regular Rhythm, Tachycardia GI/Abdominal Exam: Normal Bowel Sounds, Soft, Non-Tender, No Distention Extremities: Normal Inspection, No Pedal Edema Sepsis Event Note - Evaluation Sepsis Screening Result: Sepsis Risk - Focused Exam Vital Signs: Vital Signs Temp Temp Pulse Resp BP Pulse Ox 03/20/20 08:00 38.1 C 03/20/20 07:36 38.1 C 107 H 18 139/86 92 L 03/20/20 04:00 37.8 C 108 H 18 133/78 94 L 03/20/20 00:03 37.6 C 101 H 18 122/81 96 03/19/20 21:21 37.4 C Date Exam was Performed: 03/20/20 Time Exam was Performed: 08:38 - Problem List Review Problem List Initiated/Reviewed/Updated: Yes - My Orders Last 24 Hours: My Active Orders 03/19/20 17:19 Communication Order [RC] ROUTINE 03/20/20 12:00 Phosphorus #1 [Neutra-Phos] 250 mg PO QID - Plan Plan:: Assessment and Plan: 1. Sepsis secondary to community-acquired pneumonia: - Leukocytosis continues to be downtrending. Will give additional 1L IV LR bolus this morning as still tachycardic. Continue IV LR's 125 cc/hr, IV ceftriaxone, IV azithromycin, DuoNebs q4 PRN and incentive spirometer. Blood cultures negative. Will retest for COVID19 today. Magnesium, phosphorus and potassium will be repleted. - CXR: left lower lung opacity. CT angio confirmed CAP and no pulmonary embolism. COVID19 test negative on admission. 2. Atypical chest pain, resolved: - ACS and PE ruled out. 3. DVT prophylaxis: lovenox.
[2020-03-20] MEDS ORDERED: Sodium Chloride 0.9% 1,000 ML IV ONE (10:10)
[2020-03-20] MEDS: Phosphorus #1 250 MG Tab PO SCH ×3 (12:14→23:26)
[2020-03-20] MEDS ORDERED: Azithromycin 500 MG in Sodium Chloride 0.9% 250 ML IV SCH (12:15)
[2020-03-20] MEDS: Azithromycin 500 MG in Sodium Chloride 0.9% 250 ML IV SCH ×2 (13:29)
[2020-03-20] MEDS: cefTRIAXone 1 GM in Premix Bag 1 BAG IV SCH (17:27)
[2020-03-20] MEDS: Enoxaparin 40 MG/0.4 ML Syringe SUBCUT SCH (20:29)
[2020-03-20] MEDS: Ondansetron 4 MG/2 ML SDV IVPUSH PRN (23:34)
[2020-03-21] MEDS: Phosphorus #1 250 MG Tab PO SCH (05:25)
[2020-03-21] MEDS: Ketorolac 30 MG/ML SDV IVPUSH SCH ×3 (05:25→17:33)
[2020-03-21] MEDS: Acetaminophen 325 MG Tab PO PRN (05:35)
[2020-03-21] MEDS: Benzonatate 100 MG Cap PO PRN ×2 (05:35→13:38)
[2020-03-21] MEDS: Albuterol/Ipratropium 3.0-0.5 MG/3 ML Neb Soln NEB PRN ×2 (05:59→13:46)
[2020-03-21 06:33] LABS: BLOOD UREA NITROGEN,BUN 2 mg/dL (7.0-18.0); CHLORIDE,CL 103 mmol/L (98-107); GLUCOSE RANDOM 93 mg/dL (74-106); SODIUM,NA 137 mmol/L (136-148)
[2020-03-21] MEDS ORDERED: Potassium Chloride 20 MEQ Tab.ER PO ONE (07:18)
[2020-03-21] MEDS ORDERED: Magnesium Sulfate/Water 2 GM in Premix Bag 1 BAG IV ONE (07:19)
[2020-03-21] MEDS: Lactated Ringers 1,000 ML IV SCH ×2 (07:23→17:23)
--- NOTE | 2020-03-21 11:09 | PCM.PN ---
<Francisco Ruiz - Last Filed: 03/21/20 11:06> - General Info Date of Service: 03/21/20 Subjective Update: Patient reports breathing has improved. Had fevers this morning. Denies any SOB, chest pain, nausea or vomiting. - Patient Data Vitals - Most Recent: Last Vital Signs Temp 37.0 C 03/21/20 07:25 Pulse 102 H 03/21/20 07:25 Resp 18 03/21/20 07:25 BP 134/73 03/21/20 07:25 Pulse Ox 93 L 03/21/20 07:25 Weight - Most Recent: 92.578 kg I&O - Last 24 Hours: Intake & Output 03/20/20 03/21/20 03/21/20 22:59 06:59 14:59 Intake Total 1850 3423 Output Total 1475 1571 Balance 375 1852 Lab Results Last 24 Hours: Laboratory Results - last 24 hr 03/20/20 03/21/20 03/21/20 Range/Units 11:00 05:46 05:46 WBC 11.72 H (4.0-11.0) K/uL RBC 3.90 L (4.50-5.90) M/uL Hgb 11.9 L (13.0-17.0) g/dL Hct 34.0 L (38.0-50.0) % MCV 87.2 (80.0-98.0) fL MCH 30.5 (27.0-32.0) pg MCHC 35.0 (31.0-37.0) g/dL RDW Std Deviation 41.5 (28.0-62.0) fl RDW Coeff of Debbie 13 (11.0-15.0) % Plt Count 308 (150-400) K/uL MPV 10.90 (7.40-12.00) fL Neut % (Auto) 79.0 (48.0-80.0) % Lymph % (Auto) 12.9 L (16.0-40.0) % [place] % (Auto) 5.5 (0.0-15.0) % Eos % (Auto) 2.3 (0.0-7.0) % Baso % (Auto) 0.3 (0.0-1.5) % Neut # (Auto) 9.3 H (1.4-5.7) K/uL Lymph # (Auto) 1.5 (0.6-2.4) K/uL [place] # (Auto) 0.7 (0.0-0.8) K/uL Eos # (Auto) 0.3 (0.0-0.7) K/uL Baso # (Auto) 0.0 (0.0-0.1) K/uL Nucleated RBC % 0.0 /100WBC Nucleated RBCs # 0 K/uL Sodium 137 (136-148) mmol/L Potassium 3.0 L (3.5-5.1) mmol/L Chloride 103 (98-107) mmol/L Carbon Dioxide 21.0 (21.0-32.0) mmol/L BUN 2 L (7.0-18.0) mg/dL Creatinine 0.6 L (0.8-1.3) mg/dL Est Cr Clr Drug Dosing 205.68 mL/min Estimated GFR (MDRD) > 60.0 ml/min Glucose 93 (74-106) mg/dL Calcium 7.8 L (8.5-10.1) mg/dL Phosphorus 2.9 (2.6-4.7) mg/dL Magnesium 1.6 L (1.8-2.4) mg/dL Total Bilirubin 0.5 (0.2-1.0) mg/dL AST 26 (15-37) IU/L ALT 13 L (14-63) IU/L Alkaline Phosphatase 73 (46-116) U/L Total Protein 6.4 (6.4-8.2) g/dL Albumin 2.4 L (3.4-5.0) g/dL Globulin 4.0 (2.6-4.0) g/dL Albumin/Globulin Ratio 0.6 L (0.9-1.6) COVID-19 ([facility]) NEGATIVE (NEGATIVE) Simone Results Last 24 Hours: Microbiology 03/17/20 21:33 Aerobic Blood Culture - Preliminary Blood - Venous - Lab Draw NO GROWTH AFTER 3 DAYS Anaerobic Blood Culture - Final 03/17/20 21:23 Aerobic Blood Culture - Preliminary Blood - Venous NO GROWTH AFTER 3 DAYS Anaerobic Blood Culture - Preliminary NO GROWTH AFTER 3 DAYS Med Orders - Current: Current Medications Acetaminophen (Tylenol) 650 mg PO Q4H PRN PRN Reason: Pain (Mild 1-3)/fever Last Admin: 03/21/20 05:35 Dose: 650 mg Documented by: Albuterol/Ipratropium (Duoneb 3.0-0.5 Mg/3 Ml) 3 ml NEB Q4HRRT PRN PRN Reason: Dyspnea Last Admin: 03/21/20 05:59 Dose: 3 ml Documented by: Benzonatate (Tessalon Perles) 100 mg PO Q6H PRN PRN Reason: Cough Last Admin: 03/21/20 05:35 Dose: 100 mg Documented by: Enoxaparin Sodium (Lovenox) 40 mg SUBCUT BEDTIME [facility] Last Admin: 03/20/20 20:29 Dose: 40 mg Documented by: Lactated Ringer's (Ringers, Lactated) 1,000 mls @ 125 mls/hr IV ASDIRECTED [facility] Last Admin: 03/21/20 07:23 Dose: 125 mls/hr Documented by: Azithromycin 500 mg/ Sodium (Chloride) 250 mls @ 250 mls/hr IV Q24H [facility] Last Admin: 03/20/20 13:29 Dose: 250 mls/hr Documented by: Ceftriaxone Sodium/Dextrose 1 (gm/ Premix) 50 mls @ 100 mls/hr IV Q24H [facility] Last Admin: 03/20/20 17:27 Dose: 100 mls/hr Documented by: Ketorolac Tromethamine (Toradol) 15 mg IVPUSH Q6H [facility] Last Admin: 03/21/20 05:25 Dose: 15 mg Documented by: Ondansetron HCl (Zofran Odt) 4 mg PO Q4H PRN PRN Reason: nausea, able to take PO Last Admin: 03/20/20 08:16 Dose: 4 mg Documented by: Ondansetron HCl (Zofran) 4 mg IVPUSH Q4H PRN PRN Reason: Nausea Last Admin: 03/20/20 23:34 Dose: 4 mg Documented by: Discontinued Medications Aspirin (Aspirin) 325 mg PO ONETIME ONE Stop: 03/17/20 17:39 Last Admin: 03/17/20 17:56 Dose: 325 mg Documented by: Al Hydroxide/Mg Hydroxide 15 (ml/ Lidocaine HCl 5 ml) 0 ml PO ONETIME ONE Stop: 03/17/20 17:40 Last Admin: 03/17/20 18:04 Dose: 20 each Documented by: Sodium Chloride (Normal Saline) 1,000 mls @ 999 mls/hr IV STAT ONE Stop: 03/17/20 16:02 Last Admin: 03/17/20 15:26 Dose: 999 mls/hr Documented by: Azithromycin 500 mg/ Sodium (Chloride) 250 mls @ 250 mls/hr IV ONETIME [facility] Last Admin: 03/17/20 17:44 Dose: 250 mls/hr Documented by: Ceftriaxone Sodium/Dextrose 1 (gm/ Premix) 50 mls @ 100 mls/hr IV ONETIME ONE Stop: 03/17/20 16:40 Last Admin: 03/17/20 16:30 Dose: 100 mls/hr Documented by: Ceftriaxone Sodium/Dextrose 1 (gm/ Premix) 50 mls @ 100 mls/hr IV Q24H [facility] Last Admin: 03/19/20 15:38 Dose: 100 mls/hr Documented by: Azithromycin 500 mg/ Sodium (Chloride) 250 mls @ 250 mls/hr IV DAILY [facility] Last Admin: 03/20/20 13:29 Dose: Not Given Documented by: Magnesium Sulfate 2 gm/ Premix 50 mls @ 50 mls/hr IV ONETIME ONE Stop: 03/17/20 18:40 Last Admin: 03/17/20 19:16 Dose: 50 mls/hr Documented by: Magnesium Sulfate 2 gm/ Premix 50 mls @ 50 mls/hr IV ONETIME ONE Stop: 03/18/20 13:59 Last Admin: 03/18/20 13:18 Dose: 50 mls/hr Documented by: Lactated Ringer's (Ringers, Lactated) 1,000 mls @ 999 mls/hr IV BOLUS ONE Stop: 03/20/20 00:59 Lactated Ringer's (Ringers, Lactated) 1,000 mls @ 999 mls/hr IV BOLUS ONE Stop: 03/19/20 02:32 Last Admin: 03/19/20 01:52 Dose: 999 mls/hr Documented by: Magnesium Sulfate 4 gm/ Premix 100 mls @ 50 mls/hr IV ONETIME ONE Stop: 03/19/20 09:25 Last Admin: 03/19/20 08:07 Dose: 50 mls/hr Documented by: Lactated Ringer's (Ringers, Lactated) 1,000 mls @ 999 mls/hr IV .BOLUS ONE Stop: 03/19/20 11:45 Last Admin: 03/19/20 14:00 Dose: 999 mls/hr Documented by: Magnesium Sulfate 2 gm/ Premix 50 mls @ 50 mls/hr IV ONETIME ONE Stop: 03/20/20 08:07 Last Admin: 03/20/20 07:53 Dose: 50 mls/hr Documented by: Sodium Chloride (Normal Saline) 1,000 mls @ 999 mls/hr IV .Bolus ONE Stop: 03/20/20 11:10 Last Admin: 03/20/20 12:18 Dose: 999 mls/hr Documented by: Azithromycin 500 mg/ Sodium (Chloride) 250 mls @ 250 mls/hr IV Q24H [facility] Magnesium Sulfate 2 gm/ Premix 50 mls @ 50 mls/hr IV ONETIME ONE Stop: 03/21/20 08:18 Last Admin: 03/21/20 07:39 Dose: 50 mls/hr Documented by: Iopamidol (Isovue-370 (76%)) 50 ml IV ONETIME STA Stop: 03/17/20 20:07 Last Admin: 03/17/20 20:07 Dose: 50 ml Documented by: Ketorolac Tromethamine (Toradol) 30 mg IVPUSH ONETIME ONE Stop: 03/17/20 15:03 Last Admin: 03/17/20 15:29 Dose: 30 mg Documented by: Ketorolac Tromethamine (Toradol) 30 mg IVPUSH Q6H PRN PRN Reason: Pain Ondansetron HCl (Zofran) 4 mg IVPUSH ONETIME ONE Stop: 03/17/20 15:03 Last Admin: 03/17/20 15:27 Dose: 4 mg Documented by: Potassium Chloride (Klor-Con M20) 40 meq PO ONETIME ONE Stop: 03/19/20 07:26 Last Admin: 03/19/20 08:06 Dose: 40 meq Documented by: Potassium Chloride (Klor-Con M20) 40 meq PO ONETIME ONE Stop: 03/20/20 07:08 Last Admin: 03/20/20 07:53 Dose: 40 meq Documented by: Potassium Chloride (Klor-Con M20) 40 meq PO ONETIME ONE Stop: 03/21/20 07:19 Last Admin: 03/21/20 07:39 Dose: 40 meq Documented by: Sodium Phosphate (Neutra-Phos) 250 mg PO QID [facility] Stop: 03/18/20 12:01 Last Admin: 03/18/20 11:54 Dose: 250 mg Documented by: Sodium Phosphate (Neutra-Phos) 250 mg PO QID [facility] Stop: 03/20/20 00:01 Last Admin: 03/19/20 23:43 Dose: 250 mg Documented by: Sodium Phosphate (Neutra-Phos) 250 mg PO QID [facility] Stop: 03/21/20 06:01 Last Admin: 03/21/20 05:25 Dose: 250 mg Documented by: - Exam General: Alert, Oriented, Cooperative, No Acute Distress Lungs: Clear to Auscultation, Normal Respiratory Effort Cardiovascular: Regular Rhythm, Tachycardia GI/Abdominal Exam: Normal Bowel Sounds, Soft, Non-Tender, No Distention Extremities: Normal Inspection, No Pedal Edema Sepsis Event Note - Evaluation Sepsis Screening Result: No Definite Risk - Focused Exam Vital Signs: Vital Signs Temp Temp Pulse Resp BP Pulse Ox 03/21/20 07:25 37.0 C 102 H 18 134/73 93 L 03/21/20 05:35 38.2 C H 03/21/20 04:50 38.2 C H 106 H 19 134/78 91 L 03/21/20 01:00 37.3 C 03/20/20 23:42 37.7 C 109 H 18 127/80 92 L - Problem List Review Problem List Initiated/Reviewed/Updated: Yes - My Orders Last 24 Hours: My Active Orders 03/20/20 13:00 Azithromycin [Zithromax] 500 mg Sodium Chloride 0.9% [Normal Saline (AdvBag)] 250 ml IV Q24H 03/20/20 17:00 [email or web address] [Rocephin in Dextrose,Iso-Osm 1 GM/50 ML] 1 gm Premix Bag 1 bag IV Q24H 03/22/20 05:11 CBC WITH AUTO DIFF [HEME] AM COMPREHENSIVE METABOLIC PN,CMP [CHEM] AM MAGNESIUM [CHEM] AM - Plan Plan:: Assessment and Plan: 1. Sepsis secondary to community-acquired pneumonia: - Patient on 3L NC this morning. Leukocytosis is downtrending. Patient is still tachycardic. Continue IV ceftriaxone, IV azithromycin, DuoNebs q4 PRN and incentive spirometer. Blood cultures negative. Repeat COVID19 test negative. - CXR: left lower lung opacity. CT angio confirmed CAP and no pulmonary embolism. 2. Atypical chest pain, resolved: - ACS and PE ruled out. 3. DVT prophylaxis: lovenox. <Gigi Mcdonald - Last Filed: 03/23/20 20:54> - Patient Data Vitals - Most Recent: Last Vital Signs Temp 37.6 C 03/21/20 17:29 Pulse 107 H 03/21/20 17:29 Resp 16 03/21/20 17:29 BP 133/85 03/21/20 17:29 Pulse Ox 87 L 03/21/20 17:29 Simone Results Last 24 Hours: Microbiology 03/17/20 21:33 Aerobic Blood Culture - Final Blood - Venous - Lab Draw NO GROWTH AFTER 5 DAYS Anaerobic Blood Culture - Final 03/17/20 21:23 Aerobic Blood Culture - Final Blood - Venous NO GROWTH AFTER 5 DAYS Anaerobic Blood Culture - Final NO GROWTH AFTER 5 DAYS Med Orders - Current: Current Medications Discontinued Medications Acetaminophen (Tylenol) 650 mg PO Q4H PRN PRN Reason: Pain (Mild 1-3)/fever Last Admin: 03/21/20 05:35 Dose: 650 mg Documented by: Albuterol/Ipratropium (Duoneb 3.0-0.5 Mg/3 Ml) 3 ml NEB Q4HRRT PRN PRN Reason: Dyspnea Last Admin: 03/21/20 13:46 Dose: 3 ml Documented by: Albuterol/Ipratropium (Combivent Respimat) 0 gm INH Q4H PRN PRN Reason: Dyspnea Aspirin (Aspirin) 325 mg PO ONETIME ONE Stop: 03/17/20 17:39 Last Admin: 03/17/20 17:56 Dose: 325 mg Documented by: Benzonatate (Tessalon Perles) 100 mg PO Q6H PRN PRN Reason: Cough Last Admin: 03/21/20 13:38 Dose: 100 mg Documented by: Al Hydroxide/Mg Hydroxide 15 (ml/ Lidocaine HCl 5 ml) 0 ml PO ONETIME ONE Stop: 03/17/20 17:40 Last Admin: 03/17/20 18:04 Dose: 20 each Documented by: Enoxaparin Sodium (Lovenox) 40 mg SUBCUT BEDTIME [facility] Last Admin: 03/20/20 20:29 Dose: 40 mg Documented by: Sodium Chloride (Normal Saline) 1,000 mls @ 999 mls/hr IV STAT ONE Stop: 03/17/20 16:02 Last Admin: 03/17/20 15:26 Dose: 999 mls/hr Documented by: Azithromycin 500 mg/ Sodium (Chloride) 250 mls @ 250 mls/hr IV ONETIME [facility] Last Admin: 03/17/20 17:44 Dose: 250 mls/hr Documented by: Ceftriaxone Sodium/Dextrose 1 (gm/ Premix) 50 mls @ 100 mls/hr IV ONETIME ONE Stop: 03/17/20 16:40 Last Admin: 03/17/20 16:30 Dose: 100 mls/hr Documented by: Lactated Ringer's (Ringers, Lactated) 1,000 mls @ 125 mls/hr IV ASDIRECTED [facility] Last Admin: 03/21/20 17:23 Dose: 125 mls/hr Documented by: Ceftriaxone Sodium/Dextrose 1 (gm/ Premix) 50 mls @ 100 mls/hr IV Q24H [facility] Last Admin: 03/19/20 15:38 Dose: 100 mls/hr Documented by: Azithromycin 500 mg/ Sodium (Chloride) 250 mls @ 250 mls/hr IV DAILY [facility] Last Admin: 03/20/20 13:29 Dose: Not Given Documented by: Magnesium Sulfate 2 gm/ Premix 50 mls @ 50 mls/hr IV ONETIME ONE Stop: 03/17/20 18:40 Last Admin: 03/17/20 19:16 Dose: 50 mls/hr Documented by: Magnesium Sulfate 2 gm/ Premix 50 mls @ 50 mls/hr IV ONETIME ONE Stop: 03/18/20 13:59 Last Admin: 03/18/20 13:18 Dose: 50 mls/hr Documented by: Lactated Ringer's (Ringers, Lactated) 1,000 mls @ 999 mls/hr IV BOLUS ONE Stop: 03/20/20 00:59 Lactated Ringer's (Ringers, Lactated) 1,000 mls @ 999 mls/hr IV BOLUS ONE Stop: 03/19/20 02:32 Last Admin: 03/19/20 01:52 Dose: 999 mls/hr Documented by: Magnesium Sulfate 4 gm/ Premix 100 mls @ 50 mls/hr IV ONETIME ONE Stop: 03/19/20 09:25 Last Admin: 03/19/20 08:07 Dose: 50 mls/hr Documented by: Lactated Ringer's (Ringers, Lactated) 1,000 mls @ 999 mls/hr IV .BOLUS ONE Stop: 03/19/20 11:45 Last Admin: 03/19/20 14:00 Dose: 999 mls/hr Documented by: Magnesium Sulfate 2 gm/ Premix 50 mls @ 50 mls/hr IV ONETIME ONE Stop: 03/20/20 08:07 Last Admin: 03/20/20 07:53 Dose: 50 mls/hr Documented by: Sodium Chloride (Normal Saline) 1,000 mls @ 999 mls/hr IV .Bolus ONE Stop: 03/20/20 11:10 Last Admin: 03/20/20 12:18 Dose: 999 mls/hr Documented by: Azithromycin 500 mg/ Sodium (Chloride) 250 mls @ 250 mls/hr IV Q24H [facility] Azithromycin 500 mg/ Sodium (Chloride) 250 mls @ 250 mls/hr IV Q24H [facility] Last Admin: 03/21/20 13:26 Dose: 250 mls/hr Documented by: Ceftriaxone Sodium/Dextrose 1 (gm/ Premix) 50 mls @ 100 mls/hr IV Q24H [facility] Last Admin: 03/21/20 17:23 Dose: 100 mls/hr Documented by: Magnesium Sulfate 2 gm/ Premix 50 mls @ 50 mls/hr IV ONETIME ONE Stop: 03/21/20 08:18 Last Admin: 03/21/20 07:39 Dose: 50 mls/hr Documented by: Iopamidol (Isovue-370 (76%)) 50 ml IV ONETIME STA Stop: 03/17/20 20:07 Last Admin: 03/17/20 20:07 Dose: 50 ml Documented by: Ketorolac Tromethamine (Toradol) 30 mg IVPUSH ONETIME ONE Stop: 03/17/20 15:03 Last Admin: 03/17/20 15:29 Dose: 30 mg Documented by: Ketorolac Tromethamine (Toradol) 30 mg IVPUSH Q6H PRN PRN Reason: Pain Ketorolac Tromethamine (Toradol) 15 mg IVPUSH Q6H [facility] Last Admin: 03/21/20 17:33 Dose: 15 mg Documented by: Ondansetron HCl (Zofran) 4 mg IVPUSH ONETIME ONE Stop: 03/17/20 15:03 Last Admin: 03/17/20 15:27 Dose: 4 mg Documented by: Ondansetron HCl (Zofran Odt) 4 mg PO Q4H PRN PRN Reason: nausea, able to take PO Last Admin: 03/20/20 08:16 Dose: 4 mg Documented by: Ondansetron HCl (Zofran) 4 mg IVPUSH Q4H PRN PRN Reason: Nausea Last Admin: 03/20/20 23:34 Dose: 4 mg Documented by: Potassium Chloride (Klor-Con M20) 40 meq PO ONETIME ONE Stop: 03/19/20 07:26 Last Admin: 03/19/20 08:06 Dose: 40 meq Documented by: Potassium Chloride (Klor-Con M20) 40 meq PO ONETIME ONE Stop: 03/20/20 07:08 Last Admin: 03/20/20 07:53 Dose: 40 meq Documented by: Potassium Chloride (Klor-Con M20) 40 meq PO ONETIME ONE Stop: 03/21/20 07:19 Last Admin: 03/21/20 07:39 Dose: 40 meq Documented by: Sodium Phosphate (Neutra-Phos) 250 mg PO QID [facility] Stop: 03/18/20 12:01 Last Admin: 03/18/20 11:54 Dose: 250 mg Documented by: Sodium Phosphate (Neutra-Phos) 250 mg PO QID [facility] Stop: 03/20/20 00:01 Last Admin: 03/19/20 23:43 Dose: 250 mg Documented by: Sodium Phosphate (Neutra-Phos) 250 mg PO QID [facility] Stop: 03/21/20 06:01 Last Admin: 03/21/20 05:25 Dose: 250 mg Documented by: - Free Text/Narrative Note: I have seen and evaluated the patient. I have discussed findings and treatment plan with resident. I agree with the assessment and plan in the following note.
[2020-03-21] MEDS: Azithromycin 500 MG in Sodium Chloride 0.9% 250 ML IV SCH (13:26)
[2020-03-21] MEDS ORDERED: Albuterol/Ipratropium 4 GM Inhalation Spray INH PRN (14:10)
[2020-03-21] MEDS: cefTRIAXone 1 GM in Premix Bag 1 BAG IV SCH (17:23)
[2020-03-21 17:31] VITALS: BP 133/85; PULSE 107
--- NOTE | 2020-03-21 18:16 | PCM.DCSUM1 ---
<Francisco Ruiz - Last Filed: 03/21/20 18:18> Discharge Summary - Hospital Course Free Text/Narrative:: 24-year-old male admitted for acute hypoxic respiratory failure secondary to CAP. Patient reports PMH of bipolar disorder. CXR showed LLL PNA. CT angio showed bilateral ground-glass opacities and no pulmonary embolism. Blood cultures were negative. COVID19 test negative x 2. Patient started on supplemental oxygen and treated with IV fluids, IV ceftriaxone, IV azithromycin and DuoNebs prn. Patient's leukocytosis was downtrending and he reported significant improvement in his breathing and denied having any shortness of breath or chest pain on day of discharge. Patient had oxygen saturation of 93% on RA on evening of discharge and stated he would really like to go home. Discharged in stable condition with scripts for azithromycin, cefdinir and albuterol inhaler prn. Advised to follow-up with PCP and recommend PFT as outpatient. - Discharge Data Discharge Date: 03/21/20 Discharge Disposition: Home, Self-Care 01 Condition: Stable - Referral to Home Health Primary Care Physician: PCP None - Patient Instructions Diet: Usual Diet as Tolerated Activity: As Tolerated Notify Provider of: Fever, Increased Pain, Swelling and Redness, Drainage, Nausea and/or Vomiting Other/Special Instructions: Shortness of breath - Discharge Plan *PRESCRIPTION DRUG MONITORING PROGRAM REVIEWED*: Not Applicable *COPY OF PRESCRIPTION DRUG MONITORING REPORT IN PATIENT [place]: Not Applicable Prescriptions/Med Rec: Albuterol Sulfate [Albuterol Sulfate Hfa] 2 puff IH Q4H PRN 30 Days #1 hfa.aer.ad PRN Reason: Dyspnea Azithromycin 500 mg PO DAILY 2 Days #2 tablet Cefdinir 300 mg PO BID 2 Days #2 capsule Potassium Chloride 40 meq PO DAILY 4 Days #8 tablet.er Home Medications: Home Meds Albuterol Sulfate [Albuterol Sulfate Hfa] 2 puff IH Q4H PRN 30 Days #1 hfa.aer.ad 03/21/20 [Rx] Azithromycin 500 mg PO DAILY 2 Days #2 tablet 03/21/20 [Rx] Cefdinir 300 mg PO BID 2 Days #2 capsule 03/21/20 [Rx] Potassium Chloride 40 meq PO DAILY 4 Days #8 tablet.er 03/21/20 [Rx] Oxygen Therapy Mode: Room Air Patient Handouts: Potassium chloride tablets, extended-release tablets or capsules, Cefdinir capsules, Electronic Cigarette Information, Albuterol inhalation aerosol, Azithromycin tablets, Community-Acquired Pneumonia, Adult, [id number] Referrals: Francisco Ruiz MD [Physician] - 03/29/20 2:00 pm (Please arrive 15 minutes early and bring your insurance cards, identification and your own facemask.) - Discharge Summary/Plan Comment DC Time >30 min.: No - Patient Data Vitals - Most Recent: Last Vital Signs Temp 37.6 C 03/21/20 17:29 Pulse 107 H 03/21/20 17:29 Resp 16 03/21/20 17:29 BP 133/85 03/21/20 17:29 Pulse Ox 87 L 03/21/20 17:29 Weight - Most Recent: 92.578 kg I&O - Last 24 hours: Intake & Output 03/21/20 03/21/20 03/21/20 06:59 14:59 22:59 Intake Total 3423 3391 Output Total 1571 6990 Balance 1852 851 Lab Results - Last 24 hrs: Laboratory Results - last 24 hr 03/21/20 03/21/20 Range/Units 05:46 05:46 WBC 11.72 H (4.0-11.0) K/uL RBC 3.90 L (4.50-5.90) M/uL Hgb 11.9 L (13.0-17.0) g/dL Hct 34.0 L (38.0-50.0) % MCV 87.2 (80.0-98.0) fL MCH 30.5 (27.0-32.0) pg MCHC 35.0 (31.0-37.0) g/dL RDW Std Deviation 41.5 (28.0-62.0) fl RDW Coeff of Debbie 13 (11.0-15.0) % Plt Count 308 (150-400) K/uL MPV 10.90 (7.40-12.00) fL Neut % (Auto) 79.0 (48.0-80.0) % Lymph % (Auto) 12.9 L (16.0-40.0) % [place] % (Auto) 5.5 (0.0-15.0) % Eos % (Auto) 2.3 (0.0-7.0) % Baso % (Auto) 0.3 (0.0-1.5) % Neut # (Auto) 9.3 H (1.4-5.7) K/uL Lymph # (Auto) 1.5 (0.6-2.4) K/uL [place] # (Auto) 0.7 (0.0-0.8) K/uL Eos # (Auto) 0.3 (0.0-0.7) K/uL Baso # (Auto) 0.0 (0.0-0.1) K/uL Nucleated RBC % 0.0 /100WBC Nucleated RBCs # 0 K/uL Sodium 137 (136-148) mmol/L Potassium 3.0 L (3.5-5.1) mmol/L Chloride 103 (98-107) mmol/L Carbon Dioxide 21.0 (21.0-32.0) mmol/L BUN 2 L (7.0-18.0) mg/dL Creatinine 0.6 L (0.8-1.3) mg/dL Est Cr Clr Drug Dosing 205.68 mL/min Estimated GFR (MDRD) > 60.0 ml/min Glucose 93 (74-106) mg/dL Calcium 7.8 L (8.5-10.1) mg/dL Phosphorus 2.9 (2.6-4.7) mg/dL Magnesium 1.6 L (1.8-2.4) mg/dL Total Bilirubin 0.5 (0.2-1.0) mg/dL AST 26 (15-37) IU/L ALT 13 L (14-63) IU/L Alkaline Phosphatase 73 (46-116) U/L Total Protein 6.4 (6.4-8.2) g/dL Albumin 2.4 L (3.4-5.0) g/dL Globulin 4.0 (2.6-4.0) g/dL Albumin/Globulin Ratio 0.6 L (0.9-1.6) [facility] Results - Last 24 hrs: Microbiology 03/17/20 21:33 Aerobic Blood Culture - Preliminary Blood - Venous - Lab Draw NO GROWTH AFTER 3 DAYS Anaerobic Blood Culture - Final 03/17/20 21:23 Aerobic Blood Culture - Preliminary Blood - Venous NO GROWTH AFTER 3 DAYS Anaerobic Blood Culture - Preliminary NO GROWTH AFTER 3 DAYS Med Orders - Current: Current Medications Acetaminophen (Tylenol) 650 mg PO Q4H PRN PRN Reason: Pain (Mild 1-3)/fever Last Admin: 03/21/20 05:35 Dose: 650 mg Documented by: Albuterol/Ipratropium (Combivent Respimat) 0 gm INH Q4H PRN PRN Reason: Dyspnea Benzonatate (Tessalon Perles) 100 mg PO Q6H PRN PRN Reason: Cough Last Admin: 03/21/20 13:38 Dose: 100 mg Documented by: Enoxaparin Sodium (Lovenox) 40 mg SUBCUT BEDTIME [facility] Last Admin: 03/20/20 20:29 Dose: 40 mg Documented by: Lactated Ringer's (Ringers, Lactated) 1,000 mls @ 125 mls/hr IV ASDIRECTED [facility] Last Admin: 03/21/20 17:23 Dose: 125 mls/hr Documented by: Azithromycin 500 mg/ Sodium (Chloride) 250 mls @ 250 mls/hr IV Q24H [facility] Last Admin: 03/21/20 13:26 Dose: 250 mls/hr Documented by: Ceftriaxone Sodium/Dextrose 1 (gm/ Premix) 50 mls @ 100 mls/hr IV Q24H [facility] Last Admin: 03/21/20 17:23 Dose: 100 mls/hr Documented by: Ketorolac Tromethamine (Toradol) 15 mg IVPUSH Q6H [facility] Last Admin: 03/21/20 17:33 Dose: 15 mg Documented by: Ondansetron HCl (Zofran Odt) 4 mg PO Q4H PRN PRN Reason: nausea, able to take PO Last Admin: 03/20/20 08:16 Dose: 4 mg Documented by: Ondansetron HCl (Zofran) 4 mg IVPUSH Q4H PRN PRN Reason: Nausea Last Admin: 03/20/20 23:34 Dose: 4 mg Documented by: Discontinued Medications Albuterol/Ipratropium (Duoneb 3.0-0.5 Mg/3 Ml) 3 ml NEB Q4HRRT PRN PRN Reason: Dyspnea Last Admin: 03/21/20 13:46 Dose: 3 ml Documented by: Aspirin (Aspirin) 325 mg PO ONETIME ONE Stop: 03/17/20 17:39 Last Admin: 03/17/20 17:56 Dose: 325 mg Documented by: Al Hydroxide/Mg Hydroxide 15 (ml/ Lidocaine HCl 5 ml) 0 ml PO ONETIME ONE Stop: 03/17/20 17:40 Last Admin: 03/17/20 18:04 Dose: 20 each Documented by: Sodium Chloride (Normal Saline) 1,000 mls @ 999 mls/hr IV STAT ONE Stop: 03/17/20 16:02 Last Admin: 03/17/20 15:26 Dose: 999 mls/hr Documented by: Azithromycin 500 mg/ Sodium (Chloride) 250 mls @ 250 mls/hr IV ONETIME [facility] Last Admin: 03/17/20 17:44 Dose: 250 mls/hr Documented by: Ceftriaxone Sodium/Dextrose 1 (gm/ Premix) 50 mls @ 100 mls/hr IV ONETIME ONE Stop: 03/17/20 16:40 Last Admin: 03/17/20 16:30 Dose: 100 mls/hr Documented by: Ceftriaxone Sodium/Dextrose 1 (gm/ Premix) 50 mls @ 100 mls/hr IV Q24H [facility] Last Admin: 03/19/20 15:38 Dose: 100 mls/hr Documented by: Azithromycin 500 mg/ Sodium (Chloride) 250 mls @ 250 mls/hr IV DAILY [facility] Last Admin: 03/20/20 13:29 Dose: Not Given Documented by: Magnesium Sulfate 2 gm/ Premix 50 mls @ 50 mls/hr IV ONETIME ONE Stop: 03/17/20 18:40 Last Admin: 03/17/20 19:16 Dose: 50 mls/hr Documented by: Magnesium Sulfate 2 gm/ Premix 50 mls @ 50 mls/hr IV ONETIME ONE Stop: 03/18/20 13:59 Last Admin: 03/18/20 13:18 Dose: 50 mls/hr Documented by: Lactated Ringer's (Ringers, Lactated) 1,000 mls @ 999 mls/hr IV BOLUS ONE Stop: 03/20/20 00:59 Lactated Ringer's (Ringers, Lactated) 1,000 mls @ 999 mls/hr IV BOLUS ONE Stop: 03/19/20 02:32 Last Admin: 03/19/20 01:52 Dose: 999 mls/hr Documented by: Magnesium Sulfate 4 gm/ Premix 100 mls @ 50 mls/hr IV ONETIME ONE Stop: 03/19/20 09:25 Last Admin: 03/19/20 08:07 Dose: 50 mls/hr Documented by: Lactated Ringer's (Ringers, Lactated) 1,000 mls @ 999 mls/hr IV .BOLUS ONE Stop: 03/19/20 11:45 Last Admin: 03/19/20 14:00 Dose: 999 mls/hr Documented by: Magnesium Sulfate 2 gm/ Premix 50 mls @ 50 mls/hr IV ONETIME ONE Stop: 03/20/20 08:07 Last Admin: 03/20/20 07:53 Dose: 50 mls/hr Documented by: Sodium Chloride (Normal Saline) 1,000 mls @ 999 mls/hr IV .Bolus ONE Stop: 03/20/20 11:10 Last Admin: 03/20/20 12:18 Dose: 999 mls/hr Documented by: Azithromycin 500 mg/ Sodium (Chloride) 250 mls @ 250 mls/hr IV Q24H [facility] Magnesium Sulfate 2 gm/ Premix 50 mls @ 50 mls/hr IV ONETIME ONE Stop: 03/21/20 08:18 Last Admin: 03/21/20 07:39 Dose: 50 mls/hr Documented by: Iopamidol (Isovue-370 (76%)) 50 ml IV ONETIME STA Stop: 03/17/20 20:07 Last Admin: 03/17/20 20:07 Dose: 50 ml Documented by: Ketorolac Tromethamine (Toradol) 30 mg IVPUSH ONETIME ONE Stop: 03/17/20 15:03 Last Admin: 03/17/20 15:29 Dose: 30 mg Documented by: Ketorolac Tromethamine (Toradol) 30 mg IVPUSH Q6H PRN PRN Reason: Pain Ondansetron HCl (Zofran) 4 mg IVPUSH ONETIME ONE Stop: 03/17/20 15:03 Last Admin: 03/17/20 15:27 Dose: 4 mg Documented by: Potassium Chloride (Klor-Con M20) 40 meq PO ONETIME ONE Stop: 03/19/20 07:26 Last Admin: 03/19/20 08:06 Dose: 40 meq Documented by: Potassium Chloride (Klor-Con M20) 40 meq PO ONETIME ONE Stop: 03/20/20 07:08 Last Admin: 03/20/20 07:53 Dose: 40 meq Documented by: Potassium Chloride (Klor-Con M20) 40 meq PO ONETIME ONE Stop: 03/21/20 07:19 Last Admin: 03/21/20 07:39 Dose: 40 meq Documented by: Sodium Phosphate (Neutra-Phos) 250 mg PO QID [facility] Stop: 03/18/20 12:01 Last Admin: 03/18/20 11:54 Dose: 250 mg Documented by: Sodium Phosphate (Neutra-Phos) 250 mg PO QID [facility] Stop: 03/20/20 00:01 Last Admin: 03/19/20 23:43 Dose: 250 mg Documented by: Sodium Phosphate (Neutra-Phos) 250 mg PO QID [facility] Stop: 03/21/20 06:01 Last Admin: 03/21/20 05:25 Dose: 250 mg Documented by: <Gigi Mcdonald - Last Filed: 03/23/20 20:53> Discharge Summary - Referral to Home Health Primary Care Physician: PCP None - Patient Data Vitals - Most Recent: Last Vital Signs Temp 37.6 C 03/21/20 17:29 Pulse 107 H 03/21/20 17:29 Resp 16 03/21/20 17:29 BP 133/85 03/21/20 17:29 Pulse Ox 87 L 03/21/20 17:29 [facility] Results - Last 24 hrs: Microbiology 03/17/20 21:33 Aerobic Blood Culture - Final Blood - Venous - Lab Draw NO GROWTH AFTER 5 DAYS Anaerobic Blood Culture - Final 03/17/20 21:23 Aerobic Blood Culture - Final Blood - Venous NO GROWTH AFTER 5 DAYS Anaerobic Blood Culture - Final NO GROWTH AFTER 5 DAYS Med Orders - Current: Current Medications Discontinued Medications Acetaminophen (Tylenol) 650 mg PO Q4H PRN PRN Reason: Pain (Mild 1-3)/fever Last Admin: 03/21/20 05:35 Dose: 650 mg Documented by: Albuterol/Ipratropium (Duoneb 3.0-0.5 Mg/3 Ml) 3 ml NEB Q4HRRT PRN PRN Reason: Dyspnea Last Admin: 03/21/20 13:46 Dose: 3 ml Documented by: Albuterol/Ipratropium (Combivent Respimat) 0 gm INH Q4H PRN PRN Reason: Dyspnea Aspirin (Aspirin) 325 mg PO ONETIME ONE Stop: 03/17/20 17:39 Last Admin: 03/17/20 17:56 Dose: 325 mg Documented by: Benzonatate (Tessalon Perles) 100 mg PO Q6H PRN PRN Reason: Cough Last Admin: 03/21/20 13:38 Dose: 100 mg Documented by: Al Hydroxide/Mg Hydroxide 15 (ml/ Lidocaine HCl 5 ml) 0 ml PO ONETIME ONE Stop: 03/17/20 17:40 Last Admin: 03/17/20 18:04 Dose: 20 each Documented by: Enoxaparin Sodium (Lovenox) 40 mg SUBCUT BEDTIME [facility] Last Admin: 03/20/20 20:29 Dose: 40 mg Documented by: Sodium Chloride (Normal Saline) 1,000 mls @ 999 mls/hr IV STAT ONE Stop: 03/17/20 16:02 Last Admin: 03/17/20 15:26 Dose: 999 mls/hr Documented by: Azithromycin 500 mg/ Sodium (Chloride) 250 mls @ 250 mls/hr IV ONETIME [facility] Last Admin: 03/17/20 17:44 Dose: 250 mls/hr Documented by: Ceftriaxone Sodium/Dextrose 1 (gm/ Premix) 50 mls @ 100 mls/hr IV ONETIME ONE Stop: 03/17/20 16:40 Last Admin: 03/17/20 16:30 Dose: 100 mls/hr Documented by: Lactated Ringer's (Ringers, Lactated) 1,000 mls @ 125 mls/hr IV ASDIRECTED [facility] Last Admin: 03/21/20 17:23 Dose: 125 mls/hr Documented by: Ceftriaxone Sodium/Dextrose 1 (gm/ Premix) 50 mls @ 100 mls/hr IV Q24H [facility] Last Admin: 03/19/20 15:38 Dose: 100 mls/hr Documented by: Azithromycin 500 mg/ Sodium (Chloride) 250 mls @ 250 mls/hr IV DAILY [facility] Last Admin: 03/20/20 13:29 Dose: Not Given Documented by: Magnesium Sulfate 2 gm/ Premix 50 mls @ 50 mls/hr IV ONETIME ONE Stop: 03/17/20 18:40 Last Admin: 08/08/20 19:16 Dose: 50 mls/hr Documented by: Magnesium Sulfate 2 gm/ Premix 50 mls @ 50 mls/hr IV ONETIME ONE Stop: 03/18/20 13:59 Last Admin: 03/18/20 13:18 Dose: 50 mls/hr Documented by: Lactated Ringer's (Ringers, Lactated) 1,000 mls @ 999 mls/hr IV BOLUS ONE Stop: 03/20/20 00:59 Lactated Ringer's (Ringers, Lactated) 1,000 mls @ 999 mls/hr IV BOLUS ONE Stop: 03/19/20 02:32 Last Admin: 03/19/20 01:52 Dose: 999 mls/hr Documented by: Magnesium Sulfate 4 gm/ Premix 100 mls @ 50 mls/hr IV ONETIME ONE Stop: 03/19/20 09:25 Last Admin: 03/19/20 08:07 Dose: 50 mls/hr Documented by: Lactated Ringer's (Ringers, Lactated) 1,000 mls @ 999 mls/hr IV .BOLUS ONE Stop: 03/19/20 11:45 Last Admin: 03/19/20 14:00 Dose: 999 mls/hr Documented by: Magnesium Sulfate 2 gm/ Premix 50 mls @ 50 mls/hr IV ONETIME ONE Stop: 03/20/20 08:07 Last Admin: 03/20/20 07:53 Dose: 50 mls/hr Documented by: Sodium Chloride (Normal Saline) 1,000 mls @ 999 mls/hr IV .Bolus ONE Stop: 03/20/20 11:10 Last Admin: 03/20/20 12:18 Dose: 999 mls/hr Documented by: Azithromycin 500 mg/ Sodium (Chloride) 250 mls @ 250 mls/hr IV Q24H [facility] Azithromycin 500 mg/ Sodium (Chloride) 250 mls @ 250 mls/hr IV Q24H [facility] Last Admin: 03/21/20 13:26 Dose: 250 mls/hr Documented by: Ceftriaxone Sodium/Dextrose 1 (gm/ Premix) 50 mls @ 100 mls/hr IV Q24H [facility] Last Admin: 03/21/20 17:23 Dose: 100 mls/hr Documented by: Magnesium Sulfate 2 gm/ Premix 50 mls @ 50 mls/hr IV ONETIME ONE Stop: 03/21/20 08:18 Last Admin: 03/21/20 07:39 Dose: 50 mls/hr Documented by: Iopamidol (Isovue-370 (76%)) 50 ml IV ONETIME STA Stop: 03/17/20 20:07 Last Admin: 03/17/20 20:07 Dose: 50 ml Documented by: Ketorolac Tromethamine (Toradol) 30 mg IVPUSH ONETIME ONE Stop: 03/17/20 15:03 Last Admin: 03/17/20 15:29 Dose: 30 mg Documented by: Ketorolac Tromethamine (Toradol) 30 mg IVPUSH Q6H PRN PRN Reason: Pain Ketorolac Tromethamine (Toradol) 15 mg IVPUSH Q6H [facility] Last Admin: 03/21/20 17:33 Dose: 15 mg Documented by: Ondansetron HCl (Zofran) 4 mg IVPUSH ONETIME ONE Stop: 03/17/20 15:03 Last Admin: 03/17/20 15:27 Dose: 4 mg Documented by: Ondansetron HCl (Zofran Odt) 4 mg PO Q4H PRN PRN Reason: nausea, able to take PO Last Admin: 03/20/20 08:16 Dose: 4 mg Documented by: Ondansetron HCl (Zofran) 4 mg IVPUSH Q4H PRN PRN Reason: Nausea Last Admin: 03/20/20 23:34 Dose: 4 mg Documented by: Potassium Chloride (Klor-Con M20) 40 meq PO ONETIME ONE Stop: 03/19/20 07:26 Last Admin: 03/19/20 08:06 Dose: 40 meq Documented by: Potassium Chloride (Klor-Con M20) 40 meq PO ONETIME ONE Stop: 03/20/20 07:08 Last Admin: 03/20/20 07:53 Dose: 40 meq Documented by: Potassium Chloride (Klor-Con M20) 40 meq PO ONETIME ONE Stop: 03/21/20 07:19 Last Admin: 03/21/20 07:39 Dose: 40 meq Documented by: Sodium Phosphate (Neutra-Phos) 250 mg PO QID [facility] Stop: 03/18/20 12:01 Last Admin: 03/18/20 11:54 Dose: 250 mg Documented by: Sodium Phosphate (Neutra-Phos) 250 mg PO QID [facility] Stop: 03/20/20 00:01 Last Admin: 03/19/20 23:43 Dose: 250 mg Documented by: Sodium Phosphate (Neutra-Phos) 250 mg PO QID [facility] Stop: 03/21/20 06:01 Last Admin: 03/21/20 05:25 Dose: 250 mg Documented by: - Free Text/Narrative Note: I have seen and evaluated the patient. I have discussed findings and treatment plan with resident. I agree with the assessment and plan in the following note.
== END 2020-03-21 19:10 | disposition home or self-care (01) | DRG 720 ==
LOC: MW.ED 14:46 → MW.MS 16:11 → OBSVTOIN 03-20 10:06 → MW.MS 03-20 12:54
PROVIDERS: ADMIT Student in an Organized Health Care Education/Training Program; ATTEND Student in an Organized Health Care Education/Training Program
DX: A41.9 Sepsis, unspecified organism (principal); J18.9 Pneumonia, unspecified organism; J96.01 Acute respiratory failure with hypoxia; F31.9 Bipolar disorder, unspecified; Z79.899 Other long term (current) drug therapy; H54.7 Unspecified visual loss; R07.89 Other chest pain; Z20.828 Contact with and (suspected) exposure to other viral communicable diseases
CPT/HCPCS: 36415; 71045; 71045-26; 71275; 71275-26; 80048; 80053; 82040; 83605; 83735; 84100; 84443; 84484; 85025; 85379; 87040; 87899; 93005; 94640; 96361; 96365; 96366; 96367; 96372; 96375; 96376; 99284; 99285-25; A9270-GY; G0378; J0456; J0696; J1650; J1885; J2405; J3475; J7030; J7050; J7120; J7620-GY; Q9967; U0002

== ENCOUNTER 2020-03-21 22:01 | Observation (INO) | payer BC, OTHER ==
[2020-03-21] MEDS ORDERED: Sodium Chloride 0.9% 10 ML Syringe FLUSH PRN (22:29)
[2020-03-21] MEDS ORDERED: Sodium Chloride 0.9% 1,000 ML IV ONE (22:29)
[2020-03-21] MEDS ORDERED: Sodium Chloride 0.9% 2.5 ML Syringe FLUSH PRN (22:29)
[2020-03-21] MEDS ORDERED: cefTRIAXone 1 GM in Premix Bag 1 BAG IV ONE (22:32)
--- NOTE | 2020-03-21 22:39 | EDM.PDOC ---
ED HPI GENERAL MEDICAL PROBLEM - General Chief Complaint: Respiratory Problem Stated Complaint: SHORT OF BREATH Time Seen by Provider: 03/21/20 22:20 - History of Present Illness INITIAL COMMENTS - FREE TEXT/NARRATIVE: HISTORY AND PHYSICAL: History of present illness: This is a 24-year-old gentleman who presents ER today complaining of shortness of breath and fever. Patient's history is significant for recent diagnosis of pneumonia and admission to the hospital. Patient was discharged approximately 7 PM today after being treated for community-acquired pneumonia. Per hospital records, the patient has had 2- coronavirus tests during his visit. Patient CT scan did not reveal any evidence of PE. Patient was started on Rocephin and Zithromax IV and was discharged on Zithromax and. Patient reports that he was feeling great this evening and was requesting to go home. Patient reports that when he went home he was feeling fine. He reports that he was ambulating on room air without any difficulty. He reports prior to arrival he went to the bathroom and after using the bathroom he tried to get up and walk and felt extremely short of breath. Patient denies any fevers at home. Patient denies any nausea vomiting or diarrhea. Patient denies any new chest pain or discomfort. Patient denies any abdominal discomfort. Patient has any calf tenderness or swelling. Upon arrival in the ED, patient was noted to have a pulse ox of 88% on room air and was extremely tachypneic. Review of systems: As per history of present illness and below otherwise all systems reviewed and negative. Past medical history: As per history of present illness and as reviewed below otherwise noncontributory. Surgical history: As per history of present illness and as reviewed below otherwise noncontributory. Social history: No reported history of drug or alcohol abuse. Family history: As per history of present illness and as reviewed below otherwise noncontributory. Physical exam: Constitutional: Patient is oriented to person, place, and time. Appears well- developed and well-nourished. No distress. HEENT: Moist mucous membranes Head: Normocephalic and atraumatic Eyes: Right eye exhibits no discharge. Left eye exhibits no discharge. No scleral icterus Neck: Normal range of motion. No tracheal deviation present. Cardiovascular: Normal rate and regular rhythm. Pulmonary: Tachypneic upon arrival in the ED. After being placed on 3 L of nasal cannula patient respiratory rate has improved to approximately 20 respirations per minute. Patient's lungs have some mild expiratory wheezing. Abdominal: No distention Musculoskeletal: Normal range of motion Neurologic: Alert and oriented to person, place and time. Skin: [place], warm and dry. Psychiatric: Normal mood and affect. Behavior is normal. Judgment and thought content normal. Nursing note and vital signs have been reviewed Diagnostics: Chest x-ray CBC, CMP, COVID test, EKG EKG: Normal sinus rhythm heart rate of [address]-T wave abnormalities Normal axis No evidence of ST elevation SC As interpreted by ER physician: Shekhar Chest Xray: Normal cardiac silhouette Diffuse increased interstitial markings bilaterally consistent with viral pneumonia versus ARDS versus pneumonitis No PTX No evidence of acute bony fracture. As interpreted by ER MD: [employer]: Upon arrival in the ED, the patient was extremely tachypneic with a pulse ox of 88%. Patient was placed on 2 L nasal cannula and feels much improved. Assessment and plan: 24-year-old gentleman with recent diagnosis of community- acquired pneumonia who was just discharged on the hospital approximately 4 hours ago presents the ER today with significant tachypnea and hypoxia. Patient will have a repeat chest x-ray, repeat labs, repeat coronavirus test, DuoNeb, Rocephin/Zithromax, and will likely need readmission to the hospital for supplemental oxygen. 12:07 AM: Patient's COVID test is negative. Patient's EKG reveals Case discussed with Dr. Yu and has recommended admission for further management of his hypoxia. chest Pain Score (Numeric/FACES): 7 - Related Data Allergies Allergy/AdvReac Type Severity Reaction Status Date / Time No Known Allergies Allergy Verified 03/21/20 22:27 Home Meds: Home Meds Albuterol Sulfate [Albuterol Sulfate Hfa] 2 puff IH Q4H PRN 30 Days #1 hfa.aer.ad 03/21/20 [Rx] Azithromycin 500 mg PO DAILY 2 Days #2 tablet 03/21/20 [Rx] Cefdinir 300 mg PO BID 2 Days #2 capsule 03/21/20 [Rx] Potassium Chloride 40 meq PO DAILY 4 Days #8 tablet.er 03/21/20 [Rx] Past Medical History - Past Health History Medical/Surgical History: Denies Medical/Surgical History HEENT History: Reports: Impaired Vision, Sinusitis Other HEENT History: wears glasses Cardiovascular History: Reports: None Respiratory History: Reports: None Gastrointestinal History: Reports: None Genitourinary History: Reports: None Musculoskeletal History: Reports: None Neurological History: Other Neuro History: hx of motion sickness Psychiatric History: Reports: Bipolar Endocrine/Metabolic History: Reports: None Hematologic History: Reports: None Immunologic History: Reports: None Oncologic (Cancer) History: Reports: None Dermatologic History: Reports: None - Past Surgical History Head Surgeries/Procedures: Reports: None HEENT Surgical History: Reports: None Cardiovascular Surgical History: Reports: None Respiratory Surgical History: Reports: None GI Surgical History: Reports: None Male Surgical History: Reports: None Endocrine Surgical History: Reports: None Neurological Surgical History: Reports: None Musculoskeletal Surgical History: Reports: Other (See Below) Oncologic Surgical History: Reports: None Dermatological Surgical History: Reports: None Social & Family History - Family History Family Medical History: Noncontributory - Caffeine Use Caffeine Use: Reports: Coffee, Energy Drinks, Soda Caffeine Use Comment: 2-3 drinks /day ED ROS GENERAL - Review of Systems Review Of Systems: Comprehensive ROS is negative, except as noted in HPI. ED EXAM, GENERAL - Physical Exam Exam: See Below Course - Vital Signs Last Recorded V/S: Last Vital Signs Temp 100.9 F H 03/22/20 00:19 Pulse 106 H 03/22/20 00:00 Resp 20 03/22/20 00:00 BP 128/77 03/22/20 00:00 Pulse Ox 98 03/22/20 00:00 - Orders/Labs/Meds Orders: Active Orders 24 hr Category Date Time Status Patient Status [ADT] Routine ADT 03/22/20 00:00 Active EKG Documentation Completion [RC] AM Care 03/21/20 22:29 Active RT Aerosol Therapy [RC] ASDIRECTED Care 03/21/20 22:40 Active Azithromycin [Zithromax] 500 mg Med 03/21/20 22:45 Active Sodium Chloride 0.9% [Normal Saline (AdvBag)] 250 ml IV ONETIME Sodium Chloride 0.9% [Saline Flush] Med 03/21/20 22:29 Active 10 ml FLUSH ASDIRECTED PRN Sodium Chloride 0.9% [Saline Flush] Med 03/21/20 22:29 Active 2.5 ml FLUSH ASDIRECTED PRN Saline Lock Insert [OM.PC] Stat Oth 03/21/20 22:29 Ordered Medication Orders Azithromycin 500 mg/ Sodium (Chloride) 250 mls @ 250 mls/hr IV ONETIME WYATT Sodium Chloride (Saline Flush) 10 ml FLUSH ASDIRECTED PRN PRN Reason: Keep Vein Open Sodium Chloride (Saline Flush) 2.5 ml FLUSH ASDIRECTED PRN PRN Reason: Keep Vein Open Labs: Laboratory Tests 03/21/20 03/21/20 03/21/20 Range/Units 22:30 23:18 23:18 WBC 12.64 H (4.0-11.0) K/uL RBC 4.04 L (4.50-5.90) M/uL Hgb 12.3 L (13.0-17.0) g/dL Hct 34.8 L (38.0-50.0) % MCV 86.1 (80.0-98.0) fL MCH 30.4 (27.0-32.0) pg MCHC 35.3 (31.0-37.0) g/dL RDW Std Deviation 40.9 (28.0-62.0) fl RDW Coeff of Debbie 13 (11.0-15.0) % Plt Count 340 (150-400) K/uL MPV 10.30 (7.40-12.00) fL Neut % (Auto) 86.8 H (48.0-80.0) % Lymph % (Auto) 5.9 L (16.0-40.0) % Grainger % (Auto) 6.1 (0.0-15.0) % Eos % (Auto) 1.0 (0.0-7.0) % Baso % (Auto) 0.2 (0.0-1.5) % Neut # (Auto) 11.0 H (1.4-5.7) K/uL Lymph # (Auto) 0.7 (0.6-2.4) K/uL Grainger # (Auto) 0.8 (0.0-0.8) K/uL Eos # (Auto) 0.1 (0.0-0.7) K/uL Baso # (Auto) 0.0 (0.0-0.1) K/uL Nucleated RBC % 0.0 /100WBC Nucleated RBCs # 0 K/uL Sodium 136 (136-148) mmol/L Potassium 3.2 L (3.5-5.1) mmol/L Chloride 99 (98-107) mmol/L Carbon Dioxide 25.1 (21.0-32.0) mmol/L BUN 3 L (7.0-18.0) mg/dL Creatinine 0.6 L (0.8-1.3) mg/dL Est Cr Clr Drug Dosing 205.68 mL/min Estimated GFR (MDRD) > 60.0 ml/min Glucose 101 (74-106) mg/dL Calcium 7.8 L (8.5-10.1) mg/dL Total Bilirubin 0.4 (0.2-1.0) mg/dL AST 29 (15-37) IU/L ALT 13 L (14-63) IU/L Alkaline Phosphatase 85 (46-116) U/L Total Protein 7.0 (6.4-8.2) g/dL Albumin 2.6 L (3.4-5.0) g/dL Globulin 4.4 H (2.6-4.0) g/dL Albumin/Globulin Ratio 0.6 L (0.9-1.6) COVID-19 (RODERICK) NEGATIVE (NEGATIVE) Meds: Medications Generic Name Dose Route Start Last Admin Trade Name Freq PRN Reason Stop Dose Admin Azithromycin 500 mg/ Sodium 250 mls @ 250 mls/hr 03/21/20 22:45 Chloride IV ONETIME WYATT Sodium Chloride 10 ml 03/21/20 22:29 Saline Flush FLUSH ASDIRECTED PRN Keep Vein Open Sodium Chloride 2.5 ml 03/21/20 22:29 Saline Flush FLUSH ASDIRECTED PRN Keep Vein Open Discontinued Medications Generic Name Dose Route Start Last Admin Trade Name Freq PRN Reason Stop Dose Admin Albuterol/Ipratropium 3 ml 03/21/20 22:40 03/21/20 23:26 Duoneb 3.0-0.5 Mg/3 Ml NEB 03/21/20 22:41 3 ml ONETIME ONE Administration Sodium Chloride 1,000 mls @ 999 mls/hr 03/21/20 22:29 03/21/20 23:22 Normal Saline IV 03/21/20 23:29 999 mls/hr .Bolus ONE Administration Ceftriaxone Sodium/Dextrose 1 50 mls @ 100 mls/hr 03/21/20 22:32 03/21/20 23:24 gm/ Premix IV 03/21/20 23:01 100 mls/hr ONETIME ONE Administration - Re-Assessments/Exams Free Text/Narrative Re-Assessment/Exam: 03/22/20 00:10 Critical Care: The high probability of sudden, clinically significant deterioration in the patient's condition required the highest level of my preparedness to intervene urgently. The services I provided to this patient were to treat and/or prevent clinically significant deterioration. Services included the following: chart data review, reviewing nursing notes and/or old charts, documentation time, solar sales consultant collaboration regarding findings and treatment options, medication orders and management, direct patient care, vital sign assessments and ordering, interpreting and reviewing diagnostic studies/lab tests. Aggregate critical care time includes only time during which I was engaged inwork directly related to the patient's care, as described above, whether at the bedside or elsewhere in the Emergency Department. It did not include time spent performing other reported procedures or the services of residents, students, nurses or physician assistants. Critical Care Time: 35 minutes Departure - Departure Time of Disposition: 00:09 Disposition: Admitted As Inpatient 68 Condition: Good Clinical Impression: Respiratory failure with hypoxia, Pneumonia, Hypoxemia - Discharge Information Sepsis Event Note (ED) - Evaluation Sepsis Screening Result: No Definite Risk - Focused Exam Vital Signs: Vital Signs Temp Pulse Resp Pulse Ox 03/21/20 22:39 96 03/21/20 22:16 97.5 F 107 H 20 89 L - My Orders Last 24 Hours: My Active Orders 03/21/20 22:29 EKG Documentation Completion [RC] AM Sodium Chloride 0.9% [Saline Flush] 10 ml FLUSH ASDIRECTED PRN Sodium Chloride 0.9% [Saline Flush] 2.5 ml FLUSH ASDIRECTED PRN Saline Lock Insert [OM.PC] Stat 03/21/20 22:40 RT Aerosol Therapy [RC] ASDIRECTED 03/21/20 22:45 Azithromycin [Zithromax] 500 mg Sodium Chloride 0.9% [Normal Saline (AdvBag)] 250 ml IV ONETIME 03/22/20 00:00 Patient Status [ADT] Routine - Assessment/Plan Last 24 Hours: My Active Orders 03/21/20 22:29 EKG Documentation Completion [RC] AM Sodium Chloride 0.9% [Saline Flush] 10 ml FLUSH ASDIRECTED PRN Sodium Chloride 0.9% [Saline Flush] 2.5 ml FLUSH ASDIRECTED PRN Saline Lock Insert [OM.PC] Stat 03/21/20 22:40 RT Aerosol Therapy [RC] ASDIRECTED 03/21/20 22:45 Azithromycin [Zithromax] 500 mg Sodium Chloride 0.9% [Normal Saline (AdvBag)] 250 ml IV ONETIME 03/22/20 00:00 Patient Status [ADT] Routine
[2020-03-21] MEDS ORDERED: Albuterol/Ipratropium 3.0-0.5 MG/3 ML Neb Soln NEB ONE (22:40)
[2020-03-21] MEDS ORDERED: Azithromycin 500 MG in Sodium Chloride 0.9% 250 ML IV SCH (22:45)
[2020-03-21 23:45] LABS: BLOOD UREA NITROGEN,BUN 3 mg/dL (7.0-18.0); CARBON DIOXIDE,CO2 25.1 mmol/L (21.0-32.0); CHLORIDE,CL 99 mmol/L (98-107); GLUCOSE RANDOM 101 mg/dL (74-106); POTASSIUM,K 3.2 mmol/L (3.5-5.1); SODIUM,NA 136 mmol/L (136-148)
--- NOTE | 2020-03-21 23:48 | CR ---
Indication: SOB Technique: Chest 1 view Comparison: 03/17/2020 Findings/Impression: Cardiovascular and mediastinum: Grossly stable cardiomediastinal silhouette. Lungs and pleural space: Diffuse opacities in the bilateral mid and lower lungs, consistent with pneumonia, including viral pneumonia. Superimposed pulmonary edema or ARDS not excluded. No pleural effusions. Bones and soft tissues: No significant findings. Dictated by Danny Madrigal MD @ 03/21/2020 11:46:18 PM Dictated by: Danny Madrigal MD @ 03/21/2020 23:46:45 (Electronically Signed)
[2020-03-22] MEDS ORDERED: Albuterol/Ipratropium 3.0-0.5 MG/3 ML Neb Soln NEB PRN (02:13)
[2020-03-22] MEDS: Levofloxacin/Dextrose 5%-Water 750 MG in Premix Bag 1 BAG IV SCH (02:39)
[2020-03-22] MEDS: Ondansetron 4 MG/2 ML SDV IVPUSH PRN ×3 (04:58→17:14)
[2020-03-22 06:18] LABS: BLOOD UREA NITROGEN,BUN 2 mg/dL (7.0-18.0); CARBON DIOXIDE,CO2 25.9 mmol/L (21.0-32.0); CHLORIDE,CL 102 mmol/L (98-107); GLUCOSE RANDOM 101 mg/dL (74-106); POTASSIUM,K 2.8 mmol/L (3.5-5.1); SODIUM,NA 138 mmol/L (136-148)
[2020-03-22] MEDS ORDERED: Potassium Chloride 20 MEQ Tab.ER PO ONE ×4 (06:46→15:32)
[2020-03-22] MEDS ORDERED: Potassium Chloride Riders 40 MEQ in Premix Bag 1 BAG IV ONE ×3 (06:47→08:00)
[2020-03-22] MEDS ORDERED: Magnesium Sulfate/Water 2 GM in Premix Bag 1 BAG IV ONE (07:36)
--- NOTE | 2020-03-22 07:39 | PCM.HP.2 ---
H&P History of Present Illness - General Date of Service: 03/22/20 Admit Problem/Dx: Admission Diagnosis/Problem Admission Diagnosis/Problem Respiratory failure with hypoxia Source of Information: Patient History Limitations: Reports: No Limitations - History of Present Illness Initial Comments - Free Text/Narative: 24-year-old male presented complaining of shortness of breath. He has a PMH of bipolar disorder. Patient was recently admitted for community acquired pneumonia and requested discharged yesterday evening after reportedly feeling significantly better. Patient reports that he went home and was doing well for the first few hours. He then went to the bathroom and then suddenly started feeling very short of breath and decided to return to the hospital. He reports cough up more sputum now. During his last hospitalization, patient tested negative for COVID19 twice, CXR showed LLL opacity and CT angio showed bilateral opacities and no pulmonary embolism. He was treated with IV ceftriaxone, IV azithromycin and DuoNebs. Patient denies any fevers, chills, blurry vision, sore throat, cough, chest pain, nausea, vomiting, abdominal pain, blood in stool, blood in urine, numbness or tingling in extremities. In the ER, EKG showed normal sinus rhythm with no acute ST changes. Patient started on supplemental oxygen as he was noted to by hypoxic and tachypneic. CXR showed opacities in bilateral mid and lower lungs. WBC 12,000 and potassium level 3.2. COVID19 test negative. Patient given dose of Rocephin and azithromycin. He was admitted for further evaluation and treatment. chest Pain Score (Numeric/FACES): 4 - Related Data Allergies/Adverse Reactions: Allergies Allergy/AdvReac Type Severity Reaction Status Date / Time No Known Allergies Allergy Verified 03/22/20 03:58 Home Medications: Home Meds Albuterol Sulfate [Albuterol Sulfate Hfa] 2 puff IH Q4H PRN 30 Days #1 hfa.aer.ad 03/21/20 [Rx] Azithromycin 500 mg PO DAILY 2 Days #2 tablet 03/21/20 [Rx] Cefdinir 300 mg PO BID 2 Days #2 capsule 03/21/20 [Rx] Potassium Chloride 40 meq PO DAILY 4 Days #8 tablet.er 03/21/20 [Rx] Past Medical History - Past Health History Medical/Surgical History: Denies Medical/Surgical History HEENT History: Reports: Impaired Vision, Sinusitis Other HEENT History: wears glasses Cardiovascular History: Reports: None Respiratory History: Reports: None Gastrointestinal History: Reports: None Genitourinary History: Reports: None Musculoskeletal History: Reports: None Neurological History: Other Neuro History: hx of motion sickness Psychiatric History: Reports: Bipolar Endocrine/Metabolic History: Reports: None Hematologic History: Reports: None Immunologic History: Reports: None Oncologic (Cancer) History: Reports: None Dermatologic History: Reports: None - Past Surgical History Head Surgeries/Procedures: Reports: None HEENT Surgical History: Reports: None Cardiovascular Surgical History: Reports: None Respiratory Surgical History: Reports: None GI Surgical History: Reports: None Male Surgical History: Reports: None Endocrine Surgical History: Reports: None Neurological Surgical History: Reports: None Musculoskeletal Surgical History: Reports: Other (See Below) Other Musculoskeletal Surgeries/Procedures:: R hand Oncologic Surgical History: Reports: None Dermatological Surgical History: Reports: None Social & Family History - Family History Family Medical History: Noncontributory - Caffeine Use Caffeine Use: Reports: Energy Drinks Caffeine Use Comment: 2-3 drinks /day - Recreational Drug Use Recreational Drug Use: Yes Drug Use in Last 12 Months: Yes Recreational Drug Type: Reports: Other (see below) Recreational Drug Use Frequency: Socially Recreational Drug Last Use: "last week" H&P Review of Systems - Review of Systems: Review Of Systems: Comprehensive ROS is negative, except as noted in HPI. Exam - Exam Exam: See Below - Vital Signs Vital Signs: Last Vital Signs Temp 37.5 C 03/22/20 04:39 Pulse 102 H 03/22/20 04:39 Resp 22 H 03/22/20 04:39 BP 129/69 03/22/20 04:39 Pulse Ox 91 L 03/22/20 04:39 Weight: 93.485 kg - Exam General: Alert, Oriented, Cooperative Neck: Supple, Trachea Midline Lungs: Normal Respiratory Effort, Other (mild scattered wheezes, quiet breath sounds b/l) Cardiovascular: Regular Rhythm, Tachycardia GI/Abdominal Exam: Normal Bowel Sounds, Soft, Non-Tender, No Distention Extremities: Normal Inspection, No Pedal Edema Peripheral Pulses: 2+: Radial (L), Radial (R) Skin: Warm, Dry, Intact Neurological: Cranial Nerves Intact, Strength Equal Bilateral, Normal Speech, Normal Tone Neuro Extensive - Mental Status: Alert, Oriented x3, Normal Mood/Affect Psychiatric: Alert, Normal Affect, Normal Mood - Patient Data Lab Results Last 24 hrs: Laboratory Results - last 24 hr 03/21/20 03/21/20 03/21/20 Range/Units 22:30 23:18 23:18 WBC 12.64 H (4.0-11.0) K/uL RBC 4.04 L (4.50-5.90) M/uL Hgb 12.3 L (13.0-17.0) g/dL Hct 34.8 L (38.0-50.0) % MCV 86.1 (80.0-98.0) fL MCH 30.4 (27.0-32.0) pg MCHC 35.3 (31.0-37.0) g/dL RDW Std Deviation 40.9 (28.0-62.0) fl RDW Coeff of Debbie 13 (11.0-15.0) % Plt Count 340 (150-400) K/uL MPV 10.30 (7.40-12.00) fL Neut % (Auto) 86.8 H (48.0-80.0) % Lymph % (Auto) 5.9 L (16.0-40.0) % [place] % (Auto) 6.1 (0.0-15.0) % Eos % (Auto) 1.0 (0.0-7.0) % Baso % (Auto) 0.2 (0.0-1.5) % Neut # (Auto) 11.0 H (1.4-5.7) K/uL Lymph # (Auto) 0.7 (0.6-2.4) K/uL [place] # (Auto) 0.8 (0.0-0.8) K/uL Eos # (Auto) 0.1 (0.0-0.7) K/uL Baso # (Auto) 0.0 (0.0-0.1) K/uL Nucleated RBC % 0.0 /100WBC Nucleated RBCs # 0 K/uL Sodium 136 (136-148) mmol/L Potassium 3.2 L (3.5-5.1) mmol/L Chloride 99 (98-107) mmol/L Carbon Dioxide 25.1 (21.0-32.0) mmol/L BUN 3 L (7.0-18.0) mg/dL Creatinine 0.6 L (0.8-1.3) mg/dL Est Cr Clr Drug Dosing 205.68 mL/min Estimated GFR (MDRD) > 60.0 ml/min Glucose 101 (74-106) mg/dL Calcium 7.8 L (8.5-10.1) mg/dL Magnesium (1.8-2.4) mg/dL Total Bilirubin 0.4 (0.2-1.0) mg/dL AST 29 (15-37) IU/L ALT 13 L (14-63) IU/L Alkaline Phosphatase 85 (46-116) U/L B-Natriuretic Peptide (<100) PG/ML Total Protein 7.0 (6.4-8.2) g/dL Albumin 2.6 L (3.4-5.0) g/dL Globulin 4.4 H (2.6-4.0) g/dL Albumin/Globulin Ratio 0.6 L (0.9-1.6) COVID-19 ([facility]) NEGATIVE (NEGATIVE) 03/21/20 03/22/20 03/22/20 Range/Units 23:18 05:40 05:40 WBC 11.76 H (4.0-11.0) K/uL RBC 4.06 L (4.50-5.90) M/uL Hgb 12.6 L (13.0-17.0) g/dL Hct 35.8 L (38.0-50.0) % MCV 88.2 (80.0-98.0) fL MCH 31.0 (27.0-32.0) pg MCHC 35.2 (31.0-37.0) g/dL RDW Std Deviation 39.8 (28.0-62.0) fl RDW Coeff of Debbie 13 (11.0-15.0) % Plt Count 287 (150-400) K/uL MPV 10.50 (7.40-12.00) fL Neut % (Auto) 80.3 H (48.0-80.0) % Lymph % (Auto) 9.1 L (16.0-40.0) % [place] % (Auto) 8.9 (0.0-15.0) % Eos % (Auto) 1.4 (0.0-7.0) % Baso % (Auto) 0.3 (0.0-1.5) % Neut # (Auto) 9.5 H (1.4-5.7) K/uL Lymph # (Auto) 1.1 (0.6-2.4) K/uL [place] # (Auto) 1.1 H (0.0-0.8) K/uL Eos # (Auto) 0.2 (0.0-0.7) K/uL Baso # (Auto) 0.0 (0.0-0.1) K/uL Nucleated RBC % /100WBC Nucleated RBCs # K/uL Sodium 138 (136-148) mmol/L Potassium 2.8 L (3.5-5.1) mmol/L Chloride 102 (98-107) mmol/L Carbon Dioxide 25.9 (21.0-32.0) mmol/L BUN 2 L (7.0-18.0) mg/dL Creatinine 0.7 L (0.8-1.3) mg/dL Est Cr Clr Drug Dosing 176.30 mL/min Estimated GFR (MDRD) > 60.0 ml/min Glucose 101 (74-106) mg/dL Calcium 7.8 L (8.5-10.1) mg/dL Magnesium (1.8-2.4) mg/dL Total Bilirubin (0.2-1.0) mg/dL AST (15-37) IU/L ALT (14-63) IU/L Alkaline Phosphatase (46-116) U/L B-Natriuretic Peptide 48 (<100) PG/ML Total Protein (6.4-8.2) g/dL Albumin (3.4-5.0) g/dL Globulin (2.6-4.0) g/dL Albumin/Globulin Ratio (0.9-1.6) COVID-19 ([facility]) (NEGATIVE) 03/22/20 Range/Units 05:40 WBC (4.0-11.0) K/uL RBC (4.50-5.90) M/uL Hgb (13.0-17.0) g/dL Hct (38.0-50.0) % MCV (80.0-98.0) fL MCH (27.0-32.0) pg MCHC (31.0-37.0) g/dL RDW Std Deviation (28.0-62.0) fl RDW Coeff of Debbie (11.0-15.0) % Plt Count (150-400) K/uL MPV (7.40-12.00) fL Neut % (Auto) (48.0-80.0) % Lymph % (Auto) (16.0-40.0) % [place] % (Auto) (0.0-15.0) % Eos % (Auto) (0.0-7.0) % Baso % (Auto) (0.0-1.5) % Neut # (Auto) (1.4-5.7) K/uL Lymph # (Auto) (0.6-2.4) K/uL [place] # (Auto) (0.0-0.8) K/uL Eos # (Auto) (0.0-0.7) K/uL Baso # (Auto) (0.0-0.1) K/uL Nucleated RBC % /100WBC Nucleated RBCs # K/uL Sodium (136-148) mmol/L Potassium (3.5-5.1) mmol/L Chloride (98-107) mmol/L Carbon Dioxide (21.0-32.0) mmol/L BUN (7.0-18.0) mg/dL Creatinine (0.8-1.3) mg/dL Est Cr Clr Drug Dosing mL/min Estimated GFR (MDRD) ml/min Glucose (74-106) mg/dL Calcium (8.5-10.1) mg/dL Magnesium 1.7 L (1.8-2.4) mg/dL Total Bilirubin (0.2-1.0) mg/dL AST (15-37) IU/L ALT (14-63) IU/L Alkaline Phosphatase (46-116) U/L B-Natriuretic Peptide (<100) PG/ML Total Protein (6.4-8.2) g/dL Albumin (3.4-5.0) g/dL Globulin (2.6-4.0) g/dL Albumin/Globulin Ratio (0.9-1.6) COVID-19 ([facility]) (NEGATIVE) Result Diagrams: 03/22/20 05:40 03/22/20 05:40 Sepsis Event Note - Evaluation Sepsis Screening Result: No Definite Risk - Focused Exam Vital Signs: Vital Signs Temp Temp Pulse Resp BP Pulse Ox Pulse Ox 03/22/20 04:39 37.5 C 102 H 22 H 129/69 91 L 03/22/20 02:13 95 03/22/20 01:05 37.5 C 95 19 118/67 95 03/22/20 00:30 103 H 20 131/77 97 03/22/20 00:19 38.3 C H 03/22/20 00:00 106 H 20 128/77 98 03/21/20 22:39 96 03/21/20 22:16 36.4 C 107 H 20 89 L Problem List Initiated/Reviewed/Updated: Yes Orders Last 24hrs: Active Orders 24 hr Category Date Time Status Patient Status [ADT] Routine ADT 03/22/20 00:00 Active Antiembolic Devices [RC] PER UNIT ROUTINE Care 03/22/20 02:13 Active EKG Documentation Completion [RC] AM Care 03/21/20 22:29 Active Oxygen Therapy [RC] PRN Care 03/22/20 02:13 Active Oxygen Therapy [RC] PRN Care 03/22/20 07:33 Active RT Aerosol Therapy [RC] ASDIRECTED Care 03/21/20 22:40 Active RT Aerosol Therapy [RC] ASDIRECTED Care 03/22/20 02:13 Active RT Post Treatment Assessment [RC] Click to Edit Care 03/22/20 07:37 Active RT Pre-Treatment Assessment [RC] Click to Edit Care 03/22/20 07:37 Active Telemetry Monitoring [Cardiac Monitoring] [RC] Q8H Care 03/22/20 00:52 Active Up ad Bere [RC] ASDIRECTED Care 03/22/20 02:13 Active VTE/DVT Education [RC] PER UNIT ROUTINE Care 03/22/20 02:13 Active Vital Signs [RC] Q4H Care 03/22/20 02:13 Active Vital Signs [RC] Q4H Care 03/22/20 07:33 Active Regular Diet [DIET] Diet 03/22/20 Breakfast Active CBC WITH AUTO DIFF [HEME] AM Lab 03/23/20 05:11 Ordered COMPREHENSIVE METABOLIC PN,CMP [CHEM] AM Lab 03/23/20 05:11 Ordered Acetaminophen [Tylenol] Med 03/22/20 07:33 Active 650 mg PO Q4H PRN Albuterol/Ipratropium [Combivent Respimat] Med 03/22/20 07:37 Ordered See Dose Instructions INH Q4H PRN Enoxaparin [Lovenox] Med 03/22/20 07:45 Active 40 mg SUBCUT Q24H Levofloxacin/Dextrose 5%-Water [Levaquin in D5W 750 MG/ Med 03/22/20 02:00 Active 150 ML] 750 mg Premix Bag 1 bag IV Q24H Magnesium Sulfate/Water [Magnesium Sulfate in Water Med 03/22/20 07:36 Ordered Premix] 2 gm Premix Bag 1 bag IV ONETIME Ondansetron [Zofran] Med 03/22/20 04:45 Active 4 mg IVPUSH Q4H PRN Potassium Chloride Riders [KCL 40 MEQ in Water 100 ML] Med 03/22/20 08:00 Active 40 meq Premix Bag 1 bag IV ONETIME Potassium Chloride [Klor-Con M20] Med 03/22/20 08:00 Once 40 meq PO ONETIME ONE Sodium Chloride 0.9% [Saline Flush] Med 03/21/20 22:29 Active 10 ml FLUSH ASDIRECTED PRN Sodium Chloride 0.9% [Saline Flush] Med 03/21/20 22:29 Active 2.5 ml FLUSH ASDIRECTED PRN Saline Lock Insert [OM.PC] Stat Oth 03/21/20 22:29 Ordered Sequential Compression Device [OM.PC] Per Unit Routine Oth 03/22/20 02:13 Ordered Resuscitation Status Routine Resus Stat 03/22/20 02:22 Ordered Medication Orders Acetaminophen (Tylenol) 650 mg PO Q4H PRN PRN Reason: Pain (Mild 1-3)/fever Albuterol/Ipratropium (Combivent Respimat) 0 gm INH Q4H PRN PRN Reason: Dyspnea Enoxaparin Sodium (Lovenox) 40 mg SUBCUT Q24H [facility] Levofloxacin/Dextrose 750 mg/ (Premix) 150 mls @ 100 mls/hr IV Q24H [facility] Last Admin: 03/22/20 02:39 Dose: 100 mls/hr Documented by: PASTGEN Potassium Chloride 40 meq/ (Premix) 100 mls @ 25 mls/hr IV ONETIME ONE Stop: 03/22/20 11:59 Magnesium Sulfate 2 gm/ Premix 50 mls @ 50 mls/hr IV ONETIME ONE Stop: 03/22/20 08:35 Ondansetron HCl (Zofran) 4 mg IVPUSH Q4H PRN PRN Reason: Vomiting Last Admin: 03/22/20 04:58 Dose: 4 mg Documented by: WALLACE Potassium Chloride (Klor-Con M20) 40 meq PO ONETIME ONE Stop: 03/22/20 08:01 Sodium Chloride (Saline Flush) 10 ml FLUSH ASDIRECTED PRN PRN Reason: Keep Vein Open Sodium Chloride (Saline Flush) 2.5 ml FLUSH ASDIRECTED PRN PRN Reason: Keep Vein Open Assessment/Plan Comment:: Assessment and Plan: 1. Acute hypoxic respiratory failure secondary to community-acquired pneumonia vs vaping-induced lung injury: - Admit to med/surg. Patient on telemetry. Supplemental oxygen PRN to maintain oxygen sat > 92%, Combivent INH q4 PRN and incentive spirometry. Patient started on IV Levaquin. COVID19 test negative. - CXR showed opacities in bilateral mid and lower lung pressley. - CT angio 03/17/20 showed bilateral ground-glass pulmonary infiltrates in upper lobes, RML and lower lobes. No evidence of pulmonary embolism. 2. Hypokalemia: - Will replete with PO KCl 40 mEq x 1 and IV KCl 40 mEq. 3. Hypomagnesemia: - Will replete with IV mag sulfate. Recheck with AM labs. 4. DVT prophylaxis: Lovenox.
[2020-03-22] MEDS: Enoxaparin 40 MG/0.4 ML Syringe SUBCUT SCH (08:26)
[2020-03-22] MEDS: Acetaminophen 325 MG Tab PO PRN ×3 (10:46→23:28)
[2020-03-22] MEDS: Albuterol/Ipratropium 4 GM Inhalation Spray INH PRN ×2 (15:08→21:45)
[2020-03-22 15:27] LABS: BLOOD UREA NITROGEN,BUN 3 mg/dL (7.0-18.0); CARBON DIOXIDE,CO2 28.7 mmol/L (21.0-32.0); CHLORIDE,CL 103 mmol/L (98-107); GLUCOSE RANDOM 100 mg/dL (74-106); POTASSIUM,K 3.4 mmol/L (3.5-5.1); SODIUM,NA 139 mmol/L (136-148)
[2020-03-23] MEDS: Levofloxacin/Dextrose 5%-Water 750 MG in Premix Bag 1 BAG IV SCH (01:47)
[2020-03-23] MEDS: Ondansetron 4 MG/2 ML SDV IVPUSH PRN (02:22)
[2020-03-23 06:22] LABS: BLOOD UREA NITROGEN,BUN 5 mg/dL (7.0-18.0); CARBON DIOXIDE,CO2 24.4 mmol/L (21.0-32.0); CHLORIDE,CL 104 mmol/L (98-107); GLUCOSE RANDOM 100 mg/dL (74-106); POTASSIUM,K 3.5 mmol/L (3.5-5.1); SODIUM,NA 138 mmol/L (136-148)
[2020-03-23] MEDS: Enoxaparin 40 MG/0.4 ML Syringe SUBCUT SCH (08:22)
[2020-03-23] MEDS: Albuterol/Ipratropium 4 GM Inhalation Spray INH PRN (08:33)
--- NOTE | 2020-03-23 10:15 | PCM.PN ---
- General Info Date of Service: 03/23/20 Subjective Update: Afebrile overnight and reports coughing up more sputum now that it is looser. Breathing improved this morning. - Patient Data Vitals - Most Recent: Last Vital Signs Temp 37.0 C 03/23/20 03:27 Pulse 87 03/23/20 03:27 Resp 20 03/23/20 03:27 BP 118/73 03/23/20 03:27 Pulse Ox 95 03/23/20 03:27 Weight - Most Recent: 93.485 kg I&O - Last 24 Hours: Intake & Output 03/22/20 03/23/20 03/23/20 22:59 06:59 14:59 Intake Total 1740 890 Output Total 2740 1200 Balance -1000 -310 Lab Results Last 24 Hours: Laboratory Results - last 24 hr 03/22/20 03/23/20 03/23/20 Range/Units 14:35 05:45 05:45 WBC 9.75 (4.0-11.0) K/uL RBC 3.97 L (4.50-5.90) M/uL Hgb 11.9 L (13.0-17.0) g/dL Hct 34.6 L (38.0-50.0) % MCV 87.2 (80.0-98.0) fL MCH 30.0 (27.0-32.0) pg MCHC 34.4 (31.0-37.0) g/dL RDW Std Deviation 42.3 (28.0-62.0) fl RDW Coeff of Debbie 13 (11.0-15.0) % Plt Count 362 (150-400) K/uL MPV 10.30 (7.40-12.00) fL Neut % (Auto) 72.5 (48.0-80.0) % Lymph % (Auto) 12.1 L (16.0-40.0) % [place] % (Auto) 11.1 (0.0-15.0) % Eos % (Auto) 3.9 (0.0-7.0) % Baso % (Auto) 0.4 (0.0-1.5) % Neut # (Auto) 7.1 H (1.4-5.7) K/uL Lymph # (Auto) 1.2 (0.6-2.4) K/uL [place] # (Auto) 1.1 H (0.0-0.8) K/uL Eos # (Auto) 0.4 (0.0-0.7) K/uL Baso # (Auto) 0.0 (0.0-0.1) K/uL Nucleated RBC % 0.0 /100WBC Nucleated RBCs # 0 K/uL Sodium 139 138 (136-148) mmol/L Potassium 3.4 L 3.5 (3.5-5.1) mmol/L Chloride 103 104 (98-107) mmol/L Carbon Dioxide 28.7 24.4 (21.0-32.0) mmol/L BUN 3 L 5 L (7.0-18.0) mg/dL Creatinine 0.7 L 0.7 L (0.8-1.3) mg/dL Est Cr Clr Drug Dosing 176.30 176.30 mL/min Estimated GFR (MDRD) > 60.0 > 60.0 ml/min Glucose 100 100 (74-106) mg/dL Calcium 7.8 L 7.9 L (8.5-10.1) mg/dL Magnesium 1.9 (1.8-2.4) mg/dL Total Bilirubin 0.4 (0.2-1.0) mg/dL AST 31 (15-37) IU/L ALT 22 (14-63) IU/L Alkaline Phosphatase 68 (46-116) U/L Total Protein 6.7 (6.4-8.2) g/dL Albumin 2.4 L (3.4-5.0) g/dL Globulin 4.3 H (2.6-4.0) g/dL Albumin/Globulin Ratio 0.6 L (0.9-1.6) Med Orders - Current: Current Medications Acetaminophen (Tylenol) 650 mg PO Q4H PRN PRN Reason: Pain (Mild 1-3)/fever Last Admin: 03/22/20 23:28 Dose: 650 mg Documented by: Albuterol/Ipratropium (Combivent Respimat) 0 gm INH Q4H PRN PRN Reason: Dyspnea Last Admin: 03/23/20 08:33 Dose: 1 puff Documented by: Enoxaparin Sodium (Lovenox) 40 mg SUBCUT Q24H [facility] Last Admin: 03/23/20 08:22 Dose: 40 mg Documented by: Levofloxacin/Dextrose 750 mg/ (Premix) 150 mls @ 100 mls/hr IV Q24H [facility] Last Admin: 03/23/20 01:47 Dose: 100 mls/hr Documented by: Ondansetron HCl (Zofran) 4 mg IVPUSH Q4H PRN PRN Reason: Vomiting Last Admin: 03/23/20 02:22 Dose: 4 mg Documented by: Sodium Chloride (Saline Flush) 10 ml FLUSH ASDIRECTED PRN PRN Reason: Keep Vein Open Sodium Chloride (Saline Flush) 2.5 ml FLUSH ASDIRECTED PRN PRN Reason: Keep Vein Open Discontinued Medications Albuterol/Ipratropium (Duoneb 3.0-0.5 Mg/3 Ml) 3 ml NEB ONETIME ONE Stop: 03/21/20 22:41 Last Admin: 03/21/20 23:26 Dose: 3 ml Documented by: Albuterol/Ipratropium (Duoneb 3.0-0.5 Mg/3 Ml) 3 ml NEB Q4HRRT PRN PRN Reason: Shortness Of Breath/wheezing Last Admin: 03/22/20 04:37 Dose: 3 ml Documented by: Sodium Chloride (Normal Saline) 1,000 mls @ 999 mls/hr IV .Bolus ONE Stop: 03/21/20 23:29 Last Admin: 03/21/20 23:22 Dose: 999 mls/hr Documented by: Ceftriaxone Sodium/Dextrose 1 (gm/ Premix) 50 mls @ 100 mls/hr IV ONETIME ONE Stop: 03/21/20 23:01 Last Admin: 03/21/20 23:24 Dose: 100 mls/hr Documented by: Azithromycin 500 mg/ Sodium (Chloride) 250 mls @ 250 mls/hr IV ONETIME [facility] Last Admin: 03/22/20 01:10 Dose: 250 mls/hr Documented by: Potassium Chloride 40 meq/ (Premix) 100 mls @ 25 mls/hr IV ONETIME ONE Stop: 03/22/20 10:46 Last Admin: 03/22/20 08:02 Dose: Not Given Documented by: Potassium Chloride 40 meq/ (Premix) 100 mls @ 25 mls/hr IV ONETIME ONE Stop: 03/22/20 11:07 Last Admin: 03/22/20 08:02 Dose: Not Given Documented by: Potassium Chloride 40 meq/ (Premix) 100 mls @ 25 mls/hr IV ONETIME ONE Stop: 03/22/20 11:59 Last Admin: 03/22/20 08:27 Dose: 25 mls/hr Documented by: Magnesium Sulfate 2 gm/ Premix 50 mls @ 50 mls/hr IV ONETIME ONE Stop: 03/22/20 08:35 Last Admin: 03/22/20 08:27 Dose: 50 mls/hr Documented by: Potassium Chloride (Klor-Con M20) 40 meq PO ONETIME ONE Stop: 03/22/20 06:47 Last Admin: 03/22/20 08:01 Dose: Not Given Documented by: Potassium Chloride (Klor-Con M20) 40 meq PO ONETIME ONE Stop: 03/22/20 07:08 Last Admin: 03/22/20 08:02 Dose: Not Given Documented by: Potassium Chloride (Klor-Con M20) 40 meq PO ONETIME ONE Stop: 03/22/20 08:01 Last Admin: 03/22/20 07:54 Dose: 40 meq Documented by: Potassium Chloride (Klor-Con M20) 40 meq PO ONETIME ONE Stop: 03/22/20 15:33 Last Admin: 03/22/20 17:07 Dose: 40 meq Documented by: - Exam General: Alert, Oriented, Cooperative, No Acute Distress Lungs: Normal Respiratory Effort, Other (decreased breath sounds in bases b/l) Cardiovascular: Regular Rate, Regular Rhythm GI/Abdominal Exam: Normal Bowel Sounds, Soft, Non-Tender, No Distention Extremities: Normal Inspection, No Pedal Edema Sepsis Event Note - Evaluation Sepsis Screening Result: No Definite Risk - Focused Exam Vital Signs: Vital Signs Temp Temp Pulse Resp BP Pulse Ox 03/23/20 03:27 37.0 C 87 20 118/73 95 03/23/20 01:00 36.6 C 03/22/20 23:28 37.3 C 03/22/20 23:20 37.3 C 96 20 133/80 93 L - Problem List Review Problem List Initiated/Reviewed/Updated: Yes - Plan Plan:: Assessment and Plan: 1. Acute hypoxic respiratory failure secondary to community-acquired pneumonia vs vaping-induced lung injury: - Leukocytosis and tachycardia resolved. Will continue supplemental oxygen PRN to maintain oxygen sat > 92%, Combivent INH q4 PRN, incentive spirometry and IV Levaquin. - COVID19 test negative. - CXR showed opacities in bilateral mid and lower lung pressley. - CT angio 03/17/20 showed bilateral ground-glass pulmonary infiltrates in upper lobes, RML and lower lobes. No evidence of pulmonary embolism. 2. Hypokalemia, resolved. 3. Hypomagnesemia, resolved. 4. DVT prophylaxis: Lovenox.
[2020-03-24] MEDS: Levofloxacin/Dextrose 5%-Water 750 MG in Premix Bag 1 BAG IV SCH (01:46)
[2020-03-24 06:18] LABS: BLOOD UREA NITROGEN,BUN 6 mg/dL (7.0-18.0); CARBON DIOXIDE,CO2 27.7 mmol/L (21.0-32.0); CHLORIDE,CL 99 mmol/L (98-107); GLUCOSE RANDOM 102 mg/dL (74-106); POTASSIUM,K 3.1 mmol/L (3.5-5.1); SODIUM,NA 133 mmol/L (136-148)
[2020-03-24] MEDS ORDERED: Potassium Chloride 20 MEQ Tab.ER PO ONE (07:38)
[2020-03-24] MEDS: Ondansetron 4 MG/2 ML SDV IVPUSH PRN (08:45)
[2020-03-24] MEDS: Enoxaparin 40 MG/0.4 ML Syringe SUBCUT SCH (08:46)
[2020-03-24] MEDS ORDERED: Levofloxacin/Dextrose 5%-Water 750 MG in Premix Bag 1 BAG IV ONE (12:00)
--- NOTE | 2020-03-24 12:12 | PCM.DCSUM1 ---
<Francisco Ruiz - Last Filed: 03/24/20 13:54> Discharge Summary - Hospital Course Free Text/Narrative:: 24-year-old male admitted for acute hypoxic respiratory failure secondary to community acquired pneumonia vs vaping-induced lung injury. He has a PMH of bipolar disorder. CXR showed b/l opacities in mid and lower lungs. CT angio 03/17/20 showed no PE. Patient treated with supplemental oxygen, Combivent INH and IV Levaquin. COVID 19 test negative. Patient counselled on vaping cessation. He was successfully weaned off of oxygen and remained hemodynamically stable throughout hospital course. HIV test pending at time of discharge. Patient discharged in stable condition on PO levaquin x 2 days and prednisone 40 mg x 4 days. Recommend outpatient PFT at follow-up with PCP. - Discharge Data Discharge Date: 03/24/20 Discharge Disposition: Home, Self-Care 01 Condition: Stable - Referral to Home Health Primary Care Physician: PCP None - Patient Instructions Diet: Usual Diet as Tolerated Activity: As Tolerated Notify Provider of: Fever, Increased Pain, Swelling and Redness, Drainage, Nausea and/or Vomiting - Discharge Plan *PRESCRIPTION DRUG MONITORING PROGRAM REVIEWED*: Not Applicable *COPY OF PRESCRIPTION DRUG MONITORING REPORT IN PATIENT [place]: Not Applicable Prescriptions/Med Rec: levoFLOXacin [Levaquin] 750 mg PO DAILY 1 Days #1 tab predniSONE [Prednisone] 40 mg PO DAILY 4 Days #8 tablet Home Medications: Home Meds Albuterol Sulfate [Albuterol Sulfate Hfa] 2 puff IH Q4H PRN 30 Days #1 hfa.aer.ad 03/21/20 [Rx] Potassium Chloride 40 meq PO DAILY 4 Days #8 tablet.er 03/21/20 [Rx] levoFLOXacin [Levaquin] 750 mg PO DAILY 1 Days #1 tab 03/24/20 [Rx] predniSONE [Prednisone] 40 mg PO DAILY 4 Days #8 tablet 03/24/20 [Rx] Oxygen Therapy Mode: Room Air Patient Handouts: Levofloxacin tablets, Prednisone tablets, Community-Acquired Pneumonia, Adult, [id number] Referrals: Francisco Ruiz MD [Physician] - 03/29/20 2:00 pm - Discharge Summary/Plan Comment DC Time >30 min.: No - Patient Data Vitals - Most Recent: Last Vital Signs Temp 36.9 C 03/24/20 08:00 Pulse 93 03/24/20 08:00 Resp 18 03/24/20 08:00 BP 104/69 03/24/20 08:00 Pulse Ox 94 L 03/24/20 08:52 Weight - Most Recent: 93.485 kg I&O - Last 24 hours: Intake & Output 03/23/20 03/24/20 03/24/20 22:59 06:59 14:59 Intake Total 2009 Output Total 0 Balance 290 Lab Results - Last 24 hrs: Laboratory Results - last 24 hr 03/24/20 03/24/20 Range/Units 05:45 05:45 WBC 8.64 (4.0-11.0) K/uL RBC 4.12 L (4.50-5.90) M/uL Hgb 12.8 L (13.0-17.0) g/dL Hct 35.8 L (38.0-50.0) % MCV 86.9 (80.0-98.0) fL MCH 31.1 (27.0-32.0) pg MCHC 35.8 (31.0-37.0) g/dL RDW Std Deviation 38.8 (28.0-62.0) fl RDW Coeff of Debbie 13 (11.0-15.0) % Plt Count 393 (150-400) K/uL MPV 10.90 (7.40-12.00) fL Neut % (Auto) 64.1 (48.0-80.0) % Lymph % (Auto) 16.7 (16.0-40.0) % Bradley % (Auto) 14.1 (0.0-15.0) % Eos % (Auto) 4.6 (0.0-7.0) % Baso % (Auto) 0.5 (0.0-1.5) % Neut # (Auto) 5.5 (1.4-5.7) K/uL Lymph # (Auto) 1.4 (0.6-2.4) K/uL Bradley # (Auto) 1.2 H (0.0-0.8) K/uL Eos # (Auto) 0.4 (0.0-0.7) K/uL Baso # (Auto) 0.0 (0.0-0.1) K/uL Sodium 133 L (136-148) mmol/L Potassium 3.1 L (3.5-5.1) mmol/L Chloride 99 (98-107) mmol/L Carbon Dioxide 27.7 (21.0-32.0) mmol/L BUN 6 L (7.0-18.0) mg/dL Creatinine 0.8 (0.8-1.3) mg/dL Est Cr Clr Drug Dosing 154.26 mL/min Estimated GFR (MDRD) > 60.0 ml/min Glucose 102 (74-106) mg/dL Calcium 7.7 L (8.5-10.1) mg/dL Total Bilirubin 0.3 (0.2-1.0) mg/dL AST 26 (15-37) IU/L ALT 23 (14-63) IU/L Alkaline Phosphatase 68 (46-116) U/L Total Protein 6.7 (6.4-8.2) g/dL Albumin 2.5 L (3.4-5.0) g/dL Globulin 4.2 H (2.6-4.0) g/dL Albumin/Globulin Ratio 0.6 L (0.9-1.6) Med Orders - Current: Current Medications Acetaminophen (Tylenol) 650 mg PO Q4H PRN PRN Reason: Pain (Mild 1-3)/fever Last Admin: 03/22/20 23:28 Dose: 650 mg Documented by: Albuterol/Ipratropium (Combivent Respimat) 0 gm INH Q4H PRN PRN Reason: Dyspnea Last Admin: 03/23/20 08:33 Dose: 1 puff Documented by: Enoxaparin Sodium (Lovenox) 40 mg SUBCUT Q24H [facility] Last Admin: 03/24/20 08:46 Dose: 40 mg Documented by: Levofloxacin/Dextrose 750 mg/ (Premix) 150 mls @ 100 mls/hr IV NOW ONE Stop: 03/24/20 13:29 Ondansetron HCl (Zofran) 4 mg IVPUSH Q4H PRN PRN Reason: Vomiting Last Admin: 03/24/20 08:45 Dose: 4 mg Documented by: Sodium Chloride (Saline Flush) 10 ml FLUSH ASDIRECTED PRN PRN Reason: Keep Vein Open Sodium Chloride (Saline Flush) 2.5 ml FLUSH ASDIRECTED PRN PRN Reason: Keep Vein Open Discontinued Medications Albuterol/Ipratropium (Duoneb 3.0-0.5 Mg/3 Ml) 3 ml NEB ONETIME ONE Stop: 03/21/20 22:41 Last Admin: 03/21/20 23:26 Dose: 3 ml Documented by: Albuterol/Ipratropium (Duoneb 3.0-0.5 Mg/3 Ml) 3 ml NEB Q4HRRT PRN PRN Reason: Shortness Of Breath/wheezing Last Admin: 03/22/20 04:37 Dose: 3 ml Documented by: Sodium Chloride (Normal Saline) 1,000 mls @ 999 mls/hr IV .Bolus ONE Stop: 03/21/20 23:29 Last Admin: 03/21/20 23:22 Dose: 999 mls/hr Documented by: Ceftriaxone Sodium/Dextrose 1 (gm/ Premix) 50 mls @ 100 mls/hr IV ONETIME ONE Stop: 03/21/20 23:01 Last Admin: 03/21/20 23:24 Dose: 100 mls/hr Documented by: Azithromycin 500 mg/ Sodium (Chloride) 250 mls @ 250 mls/hr IV ONETIME [facility] Last Admin: 03/22/20 01:10 Dose: 250 mls/hr Documented by: Levofloxacin/Dextrose 750 mg/ (Premix) 150 mls @ 100 mls/hr IV Q24H [facility] Last Admin: 03/24/20 01:46 Dose: 100 mls/hr Documented by: Potassium Chloride 40 meq/ (Premix) 100 mls @ 25 mls/hr IV ONETIME ONE Stop: 03/22/20 10:46 Last Admin: 03/22/20 08:02 Dose: Not Given Documented by: Potassium Chloride 40 meq/ (Premix) 100 mls @ 25 mls/hr IV ONETIME ONE Stop: 03/22/20 11:07 Last Admin: 03/22/20 08:02 Dose: Not Given Documented by: Potassium Chloride 40 meq/ (Premix) 100 mls @ 25 mls/hr IV ONETIME ONE Stop: 03/22/20 11:59 Last Admin: 03/22/20 08:27 Dose: 25 mls/hr Documented by: Magnesium Sulfate 2 gm/ Premix 50 mls @ 50 mls/hr IV ONETIME ONE Stop: 03/22/20 08:35 Last Admin: 03/22/20 08:27 Dose: 50 mls/hr Documented by: Potassium Chloride (Klor-Con M20) 40 meq PO ONETIME ONE Stop: 03/22/20 06:47 Last Admin: 03/22/20 08:01 Dose: Not Given Documented by: Potassium Chloride (Klor-Con M20) 40 meq PO ONETIME ONE Stop: 03/22/20 07:08 Last Admin: 03/22/20 08:02 Dose: Not Given Documented by: Potassium Chloride (Klor-Con M20) 40 meq PO ONETIME ONE Stop: 03/22/20 08:01 Last Admin: 03/22/20 07:54 Dose: 40 meq Documented by: Potassium Chloride (Klor-Con M20) 40 meq PO ONETIME ONE Stop: 03/22/20 15:33 Last Admin: 03/22/20 17:07 Dose: 40 meq Documented by: Potassium Chloride (Klor-Con M20) 40 meq PO ONETIME ONE Stop: 03/24/20 07:39 Last Admin: 03/24/20 08:45 Dose: 40 meq Documented by: <Zena Tyson - Last Filed: 03/25/20 11:25> Discharge Summary - Hospital Course Free Text/Narrative:: I have seen and evaluated the patient and agree with the residents note unless specified in my note - Referral to Home Health Primary Care Physician: PCP None - Patient Data Vitals - Most Recent: Last Vital Signs Temp 36.8 C 03/24/20 12:00 Pulse 98 03/24/20 12:00 Resp 14 03/24/20 12:00 BP 126/81 03/24/20 12:00 Pulse Ox 97 03/24/20 12:00 Lab Results - Last 24 hrs: Laboratory Results - last 24 hr 03/24/20 Range/Units 05:45 HIV 1&2 Ag/Ab, 4th Gen < 0.1 (<1.0) INDEX Med Orders - Current: Current Medications Discontinued Medications Acetaminophen (Tylenol) 650 mg PO Q4H PRN PRN Reason: Pain (Mild 1-3)/fever Last Admin: 03/22/20 23:28 Dose: 650 mg Documented by: Albuterol/Ipratropium (Duoneb 3.0-0.5 Mg/3 Ml) 3 ml NEB ONETIME ONE Stop: 03/21/20 22:41 Last Admin: 03/21/20 23:26 Dose: 3 ml Documented by: Albuterol/Ipratropium (Duoneb 3.0-0.5 Mg/3 Ml) 3 ml NEB Q4HRRT PRN PRN Reason: Shortness Of Breath/wheezing Last Admin: 03/22/20 04:37 Dose: 3 ml Documented by: Albuterol/Ipratropium (Combivent Respimat) 0 gm INH Q4H PRN PRN Reason: Dyspnea Last Admin: 03/23/20 08:33 Dose: 1 puff Documented by: Enoxaparin Sodium (Lovenox) 40 mg SUBCUT Q24H [facility] Last Admin: 03/24/20 08:46 Dose: 40 mg Documented by: Sodium Chloride (Normal Saline) 1,000 mls @ 999 mls/hr IV .Bolus ONE Stop: 03/21/20 23:29 Last Admin: 03/21/20 23:22 Dose: 999 mls/hr Documented by: Ceftriaxone Sodium/Dextrose 1 (gm/ Premix) 50 mls @ 100 mls/hr IV ONETIME ONE Stop: 03/21/20 23:01 Last Admin: 03/21/20 23:24 Dose: 100 mls/hr Documented by: Azithromycin 500 mg/ Sodium (Chloride) 250 mls @ 250 mls/hr IV ONETIME [facility] Last Admin: 03/22/20 01:10 Dose: 250 mls/hr Documented by: Levofloxacin/Dextrose 750 mg/ (Premix) 150 mls @ 100 mls/hr IV Q24H [facility] Last Admin: 03/24/20 01:46 Dose: 100 mls/hr Documented by: Potassium Chloride 40 meq/ (Premix) 100 mls @ 25 mls/hr IV ONETIME ONE Stop: 03/22/20 10:46 Last Admin: 03/22/20 08:02 Dose: Not Given Documented by: Potassium Chloride 40 meq/ (Premix) 100 mls @ 25 mls/hr IV ONETIME ONE Stop: 03/22/20 11:07 Last Admin: 03/22/20 08:02 Dose: Not Given Documented by: Potassium Chloride 40 meq/ (Premix) 100 mls @ 25 mls/hr IV ONETIME ONE Stop: 03/22/20 11:59 Last Admin: 03/22/20 08:27 Dose: 25 mls/hr Documented by: Magnesium Sulfate 2 gm/ Premix 50 mls @ 50 mls/hr IV ONETIME ONE Stop: 03/22/20 08:35 Last Admin: 03/22/20 08:27 Dose: 50 mls/hr Documented by: Levofloxacin/Dextrose 750 mg/ (Premix) 150 mls @ 100 mls/hr IV NOW ONE Stop: 03/24/20 13:29 Last Admin: 03/24/20 13:44 Dose: Not Given Documented by: Ondansetron HCl (Zofran) 4 mg IVPUSH Q4H PRN PRN Reason: Vomiting Last Admin: 03/24/20 08:45 Dose: 4 mg Documented by: Potassium Chloride (Klor-Con M20) 40 meq PO ONETIME ONE Stop: 03/22/20 06:47 Last Admin: 03/22/20 08:01 Dose: Not Given Documented by: Potassium Chloride (Klor-Con M20) 40 meq PO ONETIME ONE Stop: 03/22/20 07:08 Last Admin: 03/22/20 08:02 Dose: Not Given Documented by: Potassium Chloride (Klor-Con M20) 40 meq PO ONETIME ONE Stop: 03/22/20 08:01 Last Admin: 03/22/20 07:54 Dose: 40 meq Documented by: Potassium Chloride (Klor-Con M20) 40 meq PO ONETIME ONE Stop: 03/22/20 15:33 Last Admin: 03/22/20 17:07 Dose: 40 meq Documented by: Potassium Chloride (Klor-Con M20) 40 meq PO ONETIME ONE Stop: 03/24/20 07:39 Last Admin: 03/24/20 08:45 Dose: 40 meq Documented by: Sodium Chloride (Saline Flush) 10 ml FLUSH ASDIRECTED PRN PRN Reason: Keep Vein Open Sodium Chloride (Saline Flush) 2.5 ml FLUSH ASDIRECTED PRN PRN Reason: Keep Vein Open
[2020-03-24 12:31] VITALS: BP 126/81; PULSE 98
== END 2020-03-24 13:15 | disposition home or self-care (01) ==
LOC: MW.ED 22:01 → MW.MS 03-22
PROVIDERS: ADMIT Internal Medicine; ATTEND Internal Medicine
DX: J96.01 Acute respiratory failure with hypoxia (principal); F31.9 Bipolar disorder, unspecified; E87.6 Hypokalemia; E83.42 Hypomagnesemia; R91.8 Other nonspecific abnormal finding of lung field; Z20.828 Contact with and (suspected) exposure to other viral communicable diseases; Z79.899 Other long term (current) drug therapy
CPT/HCPCS: 36415; 71045; 80048; 80053; 83735; 83880; 85025; 87389; 87635; 93005; 94640; 96365; 96366; 96367; 96368; 96372; 96375; 96376; 99285; A9270; G0378; J0456; J0696; J1650; J1956; J2405; J3475; J3480; J7030; J7050; 99291; J7620-GY; U0002

== ENCOUNTER 2020-09-26 00:53 | Emergency (ER) | payer BC, OTHER ==
--- NOTE | 2020-09-26 01:16 | EDM.PDOC ---
ED HPI GENERAL MEDICAL PROBLEM - General Chief Complaint: Respiratory Problem Stated Complaint: SHORTNESS OF BREATH, COUGH Time Seen by Provider: 09/26/20 01:00 - History of Present Illness INITIAL COMMENTS - FREE TEXT/NARRATIVE: HISTORY AND PHYSICAL: History of present illness: This is a 24-year-old gentleman with no significant past medical history except for pneumonia who presents ER today secondary to shortness of breath x1 hour after an episode of emesis this evening. Patient reports he has been having cough x1 day. Patient denies any fevers, shakes, chills. Patient has any nausea, vomiting, diarrhea, dysuria, frequency, urgency. Patient denies any abdominal pain. Patient reports that he was tested negative for coronavirus approximately 1 week ago secondary to a Covid exposure but was asymptomatic. Patient reports he was diagnosed with pneumonia in March and feels like he has similar symptoms. Patient reports he has a burning sensation in his midepigastric region that feels like heartburn. Patient denies any diarrhea, hematemesis, coffee-ground emesis. Patient denies any bright red blood per rectum. Patient denies any melanotic stools. Review of systems: As per history of present illness and below otherwise all systems reviewed and negative. Past medical history: As per history of present illness and as reviewed below otherwise noncontributory. Surgical history: As per history of present illness and as reviewed below otherwise noncontributory. Social history: No reported history of drug or alcohol abuse. Family history: As per history of present illness and as reviewed below otherwise noncontributory. Physical exam: Constitutional: Patient is oriented to person, place, and time. Appears well- developed and well-nourished. No distress. HEENT: Moist mucous membranes Head: Normocephalic and atraumatic Eyes: Right eye exhibits no discharge. Left eye exhibits no discharge. No scleral icterus Neck: Normal range of motion. No tracheal deviation present. Cardiovascular: Normal rate and regular rhythm. Pulmonary: Effort normal, no respiratory distress. No wheezing rales or rhonchi. Abdominal: No distention Musculoskeletal: Normal range of motion Neurologic: Alert and oriented to person, place and time. Skin: [place], warm and dry. Psychiatric: Normal mood and affect. Behavior is normal. Judgment and thought content normal. Nursing note and vital signs have been reviewed This patient was seen and evaluated during the 2019 SARS-CoV-2 novel coronavirus pandemic period. Community viral transmission is ongoing at time of this encounter and the emergency department is operating under pandemic response procedures. Diagnostics: Chest x-ray Coronavirus test Influenza Therapeutics: Zofran 4 ODT Assessment and plan: This is a 24-year-old gentleman who presents ER today secondary to feeling short of breath. Patient's pulse ox here in the ER is between 96 to 98% on room air. Patient's respiratory rate is normal at 16-20 respirations per minute. Patient speaking in full sentences. Patient's lung exam is normal. Patient will be given a coronavirus test as well as a chest x-ray here in the ED. Patient be given Zofran ODT to assist with his nausea symptoms. Chest Xray: Normal cardiac silhouette No infiltrates or effusions identified. No PTX No evidence of acute bony fracture. As interpreted by ER MD: Shekhar Upon reevaluation, the patient reports he still has episodes of nausea and was given a dose of Zofran as well as a GI cocktail here in the ED. Patient be discharged home with a prescription for Zofran and instructions to follow-up with primary care physician in 1 to 2 days. Reassessment at the time of disposition demonstrates that the patient is in no acute distress. The patient has remained stable throughout the entire ED visit and is without objective evidence for acute process requiring urgent intervention or hospitalization. The patient is stable for discharge, counseling is provided as documented above, discussed symptomatic treatment and specific conditions for return. I have spoken with the patient/caregiver and discussed todays findings, in addition to providing specific details for the plan of care. Questions are answered and there is agreement with the plan. Definitive disposition and diagnosis as appropriate pending reevaluation and review of above. - Related Data Allergies Allergy/AdvReac Type Severity Reaction Status Date / Time No Known Allergies Allergy Verified 09/26/20 01:02 Home Meds: Home Meds Albuterol Sulfate [Albuterol Sulfate Hfa] 2 puff IH Q4H PRN 30 Days #1 hfa.aer.ad 03/21/20 [Rx] Ondansetron [Zofran ODT] 4 mg PO Q6H PRN #12 tab.dis 09/26/20 [Rx] Past Medical History - Past Health History Medical/Surgical History: Denies Medical/Surgical History HEENT History: Reports: Impaired Vision, Sinusitis Other HEENT History: wears glasses Cardiovascular History: Reports: None Respiratory History: Reports: None Gastrointestinal History: Reports: None Genitourinary History: Reports: None Musculoskeletal History: Reports: None Neurological History: Other Neuro History: hx of motion sickness Psychiatric History: Reports: Bipolar Endocrine/Metabolic History: Reports: None Hematologic History: Reports: None Immunologic History: Reports: None Oncologic (Cancer) History: Reports: None Dermatologic History: Reports: None - Infectious Disease History Infectious Disease History: Reports: None - Past Surgical History Head Surgeries/Procedures: Reports: None HEENT Surgical History: Reports: None Cardiovascular Surgical History: Reports: None Respiratory Surgical History: Reports: None GI Surgical History: Reports: None Male Surgical History: Reports: None Endocrine Surgical History: Reports: None Neurological Surgical History: Reports: None Musculoskeletal Surgical History: Reports: Other (See Below) Other Musculoskeletal Surgeries/Procedures:: R hand Oncologic Surgical History: Reports: None Dermatological Surgical History: Reports: None Social & Family History - Family History Family Medical History: No Pertinent Family History - Caffeine Use Caffeine Use: Reports: None Caffeine Use Comment: 2-3 drinks /day - Recreational Drug Use Recreational Drug Use: Yes Drug Use in Last 12 Months: Yes Recreational Drug Type: Reports: Other (see below) Other Recreational Drug Type: states medical marijuana ED ROS GENERAL - Review of Systems Review Of Systems: See Below ED EXAM, GENERAL - Physical Exam Exam: See Below Course - Vital Signs Last Recorded V/S: Last Vital Signs Temp 97.5 F 09/26/20 02:10 Pulse 82 09/26/20 02:10 Resp 18 09/26/20 02:10 BP 128/92 H 09/26/20 02:10 Pulse Ox 97 09/26/20 02:10 - Orders/Labs/Meds Labs: Laboratory Tests 09/26/20 Range/Units 01:10 Influenza Type A RNA NEGATIVE (NEGATIVE) Influenza Type B RNA NEGATIVE (NEGATIVE) SARS-CoV-2 RNA (RODERICK) NEGATIVE (NEGATIVE) Meds: Medications Discontinued Medications Generic Name Dose Route Start Last Admin Trade Name Freq PRN Reason Stop Dose Admin Al Hydroxide/Mg Hydroxide 15 0 ml 09/26/20 01:49 09/26/20 01:53 ml/ Lidocaine HCl 5 ml PO 09/26/20 01:50 1 each ONETIME ONE Administration Ondansetron HCl 4 mg 09/26/20 01:29 09/26/20 01:41 Zofran Odt PO 09/26/20 01:30 4 mg ONETIME ONE Administration Departure - Departure Time of Disposition: 01:51 Disposition: Home, Self-Care 01 Condition: Good Clinical Impression: Viral illness, Cough, Shortness of breath, Nausea - Discharge Information Prescriptions: Ondansetron [Zofran ODT] 4 mg PO Q6H PRN #12 tab.dis PRN Reason: Nausea Instructions: Nausea, Adult, Shortness of Breath, Adult, [id number] Referrals: Carol Martinez NP [Primary Care Provider] - Forms: ED Department Discharge Additional Instructions: You were seen and evaluated in the ER today secondary to vomiting, cough, shortness of breath. Your coronavirus test in ER today was negative. Your chest x-ray was clear not show any evidence of pneumonia and actually showed significant clearance of the pneumonia that you had back in March 2020. He will be discharged home with prescription for Zofran to assist with her nausea. Please make an appointment to see your family doctor in 1 to 2 days to be reevaluated. Please avoid any tobacco or smoke products including any smoking of marijuana as this can adversely affect your lungs in the long run. The following information is given to patients seen in the emergency department who are being discharged to home. This information is to outline your options for follow-up care. We provide all patients seen in our emergency department with a follow-up referral. The need for follow-up, as well as the timing and circumstances, are variable depending upon the specifics of your emergency department visit. If you don't have a primary care physician on staff, we will provide you with a referral. We always advise you to contact your personal physician following an emergency department visit to inform them of the circumstance of the visit and for follow-up with them and/or the need for any referrals to a consulting specialist. The emergency department will also refer you to a specialist when appropriate. This referral assures that you have the opportunity for follow-up care with a specialist. All of these measure are taken in an effort to provide you with optimal care, which includes your follow-up. Under all circumstances we always encourage you to contact your private physician who remains a resource for coordinating your care. When calling for follow-up care, please make the office aware that this follow-up is from your recent emergency room visit. If for any reason you are refused follow-up, please contact the [facility] Emergency Department at and asked to speak to the emergency department charge nurse. [facility] - Primary Care [address] [place] [id number] [address] Sepsis Event Note (ED) - Evaluation Sepsis Screening Result: No Definite Risk
[2020-09-26] MEDS ORDERED: Ondansetron 4 MG Tab.DIS PO ONE (01:29)
--- NOTE | 2020-09-26 01:38 | CR ---
Indication: Shortness of breath and cough. COVID positive. Technique: Chest 1 view Comparison: None Findings/Impression: Cardiovascular and mediastinum: Heart size and vasculature are normal in caliber and appearance. Lungs and pleural space: Lungs are clear. No sign of infiltrate or mass. No sign of pleural effusion. No pneumothorax. Bones and soft tissues: No acute findings. Dictated by Sidney Mata MD @ Sep 26 2020 1:35AM Signed by Dr. Sidney Mata @ Sep 26 2020 1:36AM
[2020-09-26] MEDS ORDERED: Alum Hydrox/Mag Hydrox/Simeth 15 ML, Lidocaine 2% 5 ML PO ONE ×2 (01:49)
[2020-09-26 02:00] LABS: CORONAVIRUS COVID-19 NAA NEGATIVE (NEGATIVE); INFLUENZA A NAA NEGATIVE (NEGATIVE); INFLUENZA B NAA NEGATIVE (NEGATIVE)
[2020-09-26 02:11] VITALS: BP 128/92; PULSE 82
== END 2020-09-26 02:10 | disposition home or self-care (01) ==
LOC: MW.ED 00:53
DX: B34.9 Viral infection, unspecified (principal); Z20.822 Contact with and (suspected) exposure to COVID-19
CPT/HCPCS: 0240U; 71045; 99285; A9270

== ENCOUNTER 2021-03-08 20:39 | Emergency (ER) | payer BC, OTHER ==
[2021-03-08] MEDS ORDERED: Ibuprofen 600 MG Tab PO ONE (21:22)
[2021-03-08] MEDS ORDERED: Azithromycin 250 MG Tab PO ONE (21:24)
[2021-03-08] MEDS ORDERED: Benzonatate 100 MG Cap PO ONE (21:25)
--- NOTE | 2021-03-08 22:25 | EDM.PDOC ---
ED HPI GENERAL MEDICAL PROBLEM - General Chief Complaint: Respiratory Problem Stated Complaint: CHEST PAINS Time Seen by Provider: 03/08/21 20:43 Source of Information: Reports: Patient - History of Present Illness INITIAL COMMENTS - FREE TEXT/NARRATIVE: History of present illness: 25-year-old male presenting with productive cough, mild difficulty breathing/wheezing and bilateral posterior chest pain. He reports he had very similar symptoms about a year ago when he had a pneumonia that required hospitalization. He reports he waited too long that time and he ended up having to stay in the hospital. He had the same symptoms and decided to come in a little earlier this time. Review of systems: As per history of present illness and below otherwise all systems reviewed and negative. Past medical history: As per history of present illness and as reviewed below otherwise noncontributory. Pneumonia, possible asthma Surgical history: As per history of present illness and as reviewed below otherwise noncontributory. Hand surgery Social history: No reported history of drug or alcohol abuse. Daily smoker Family history: As per history of present illness and as reviewed below otherwise noncontributory. Physical exam: GEN: no acute distress, well appearing HEENT: Atraumatic, normocephalic, mucous membranes moist, Neck: supple, nontender, trachea midline. Lungs: No respiratory distress. No wheezing, rales or rhonchi, +productive/frequent cough Heart: RRR Abdomen: Soft, nondistended, nontender. Back: Full range of motion Extremities: Atraumatic. Neurovascularly intact. Neuro: Awake, alert, oriented. Neuro Exam nonfocal. Skin: warm, dry, no lesions Diagnostics: Chest x-rayno pneumonia seen. Therapeutics: yg Graf MDM: Suspect pneumonia versus viral bronchitis. The patient is a smoker will cover with azithromycin. Impression: Chest x-ray negative for pneumonia, suspect bronchitis, as the patient is a smoker with a history of possible asthma/pneumonia will cover with azithromycin and steroids. Plan: [] Definitive disposition and diagnosis as appropriate pending reevaluation and review of above. Right Posterior Back Pain Score (Numeric/FACES): 8 - Related Data Allergies Allergy/AdvReac Type Severity Reaction Status Date / Time No Known Allergies Allergy Verified 09/26/20 01:02 Home Meds: Home Meds Albuterol Sulfate [Albuterol Sulfate Hfa] 2 puff IH Q4H PRN 30 Days #1 hfa.[email or web address].[email or web address] 03/21/20 [Rx] Past Medical History - Past Health History Medical/Surgical History: Denies Medical/Surgical History HEENT History: Reports: Impaired Vision, Sinusitis Other HEENT History: wears glasses Cardiovascular History: Reports: None Respiratory History: Reports: None Gastrointestinal History: Reports: None Genitourinary History: Reports: None Musculoskeletal History: Reports: None Neurological History: Other Neuro History: hx of motion sickness Psychiatric History: Reports: Bipolar Endocrine/Metabolic History: Reports: None Hematologic History: Reports: None Immunologic History: Reports: None Oncologic (Cancer) History: Reports: None Dermatologic History: Reports: None - Infectious Disease History Infectious Disease History: Reports: None - Past Surgical History Head Surgeries/Procedures: Reports: None HEENT Surgical History: Reports: None Cardiovascular Surgical History: Reports: None Respiratory Surgical History: Reports: None GI Surgical History: Reports: None Male Surgical History: Reports: None Endocrine Surgical History: Reports: None Neurological Surgical History: Reports: None Musculoskeletal Surgical History: Reports: Other (See Below) Other Musculoskeletal Surgeries/Procedures:: R hand Oncologic Surgical History: Reports: None Dermatological Surgical History: Reports: None Social & Family History - Family History Family Medical History: No Pertinent Family History - Tobacco Use Tobacco Use Status *Q: Current Every Day Tobacco User Years of Tobacco use: 10 Packs/Tins Daily: 0.5 - Caffeine Use Caffeine Use: Reports: Coffee Caffeine Use Comment: 2-3 drinks /day - Recreational Drug Use Recreational Drug Use: Yes Recreational Drug Type: Reports: Marijuana/Hashish ED ROS GENERAL - Review of Systems Review Of Systems: See Below (See dictation) ED EXAM, GENERAL - Physical Exam Exam: See Below (See dictation) Course - Vital Signs Last Recorded V/S: Last Vital Signs Temp 98.9 F 03/08/21 21:05 Pulse 94 03/08/21 21:05 Resp 18 03/08/21 21:05 BP 144/90 H 03/08/21 21:05 Pulse Ox 98 03/08/21 21:05 - Orders/Labs/Meds Labs: Laboratory Tests 03/08/21 Range/Units 20:30 SARS-CoV-2 RNA ([facility]) NEGATIVE (NEGATIVE) Meds: Medications Discontinued Medications Generic Name Dose Route Start Last Admin Trade Name Freq PRN Reason Stop Dose Admin Azithromycin 500 mg 03/08/21 21:24 03/08/21 21:37 Azithromycin 250 Mg Tab PO 03/08/21 21:25 500 mg ONETIME ONE Administration Benzonatate 200 mg 03/08/21 21:25 03/08/21 21:37 Benzonatate 100 Mg Cap PO 03/08/21 21:26 200 mg ONETIME ONE Administration Ibuprofen 600 mg 03/08/21 21:22 03/08/21 21:37 Ibuprofen 600 Mg Tab PO 03/08/21 21:23 600 mg ONETIME ONE Administration - Re-Assessments/Exams Free Text/Narrative Re-Assessment/Exam: 03/08/21 22:59 Results and plan of care discussed with the patient. Stable for discharge home. Departure - Departure Time of Disposition: 23:00 Disposition: Home, Self-Care 01 Clinical Impression: Bronchitis - Discharge Information Instructions: Shortness of Breath, Adult, [id number], Upper Respiratory Infection, Adult, [id number], Steps to Quit Smoking, [id number], Acute Bronchitis, Adult, [id number] Referrals: Vera Martinez MD [Primary Care Provider] - 2 Days Forms: ED Department Discharge Additional Instructions: Please try to quit smoking as this will help your breathing. Please take the antibiotics as prescribed as well as the steroids. You may use the inhaler as needed. A prescription has been provided for the cough medicine as well. Return to the ER if you develop any difficulty breathing. Please follow-up with your primary care physician. The following information is given to patients seen in the emergency department who are being discharged to home. This information is to outline your options for follow-up care. We provide all patients seen in our emergency department with a follow-up referral. The need for follow-up, as well as the timing and circumstances, are variable depending upon the specifics of your emergency department visit. If you don't have a primary care physician on staff, we will provide you with a referral. We always advise you to contact your personal physician following an emergency department visit to inform them of the circumstance of the visit and for follow-up with them and/or the need for any referrals to a consulting specialist. The emergency department will also refer you to a specialist when appropriate. This referral assures that you have the opportunity for follow-up care with a specialist. All of these measure are taken in an effort to provide you with optimal care, which includes your follow-up. Under all circumstances we always encourage you to contact your private physician who remains a resource for coordinating your care. When calling for follow-up care, please make the office aware that this follow-up is from your recent emergency room visit. If for any reason you are refused follow-up, please contact the [facility] Emergency Department at and asked to speak to the emergency department charge nurse. Sepsis Event Note (ED) - Evaluation Sepsis Screening Result: No Definite Risk - Focused Exam Vital Signs: Vital Signs Temp Pulse Resp BP Pulse Ox 03/08/21 21:05 98.9 F 94 18 144/90 H 98
--- NOTE | 2021-03-08 22:55 | CR ---
INDICATION: Cough TECHNIQUE: Chest 1 view. COMPARISON: Chest x-ray 09/26/2020 FINDINGS: The heart is stable in size. The pulmonary vasculature is within normal limits. The lungs are clear without focal consolidation, pleural effusion or visualized pneumothorax. The bones are unremarkable. IMPRESSION: No acute process. Dictated by Kami Blackwell MD @ 03/08/2021 10:54:[address] Kami Blackwell @ Mar 08 2021 10:54PM
[2021-03-08 23:11] VITALS: BP 138/84; PULSE 96
== END 2021-03-08 23:10 | disposition home or self-care (01) ==
LOC: MW.ED 20:39
DX: J40 Bronchitis, not specified as acute or chronic (principal); Z72.0 Tobacco use; Z20.822 Contact with and (suspected) exposure to COVID-19
CPT/HCPCS: 71045; 87635; 99284; A9270; U0002

== ENCOUNTER 2021-03-09 15:30 | Inpatient (IN) | payer BC ==
[2021-03-09] MEDS ORDERED: HYDROmorphone 2 MG/ML Syringe IVPUSH ONE ×2 (15:55→19:21)
[2021-03-09] MEDS ORDERED: Sodium Chloride 0.9% 1,000 ML IV ONE ×3 (15:55→19:51)
[2021-03-09] MEDS ORDERED: Ketorolac 30 MG/ML SDV IVPUSH ONE (15:55)
[2021-03-09] MEDS ORDERED: Ondansetron 4 MG/2 ML SDV IVPUSH ONE ×2 (15:55→19:21)
--- NOTE | 2021-03-09 16:12 | PCM.EKG ---
#1 Interpretation EKG Date: 03/09/21 Time: 16:05 Rhythm: NSR Rate (Beats/Min): 108 [place]: Normal P-Wave: Present QRS: Normal ST-T: Normal QT: Normal OR/PQ Interval: 131 Comparison: NA - No Prior EKG EKG Interpretation Comments: sinus tachycardia
[2021-03-09 16:20] LABS: BLOOD UREA NITROGEN,BUN 12 mg/dL (7.0-18.0); CARBON DIOXIDE,CO2 16.6 mmol/L (21.0-32.0); CHLORIDE,CL 98 mmol/L (98-107); GLUCOSE RANDOM 98 mg/dL (74-106); LIPASE 60 U/L (73-393); POTASSIUM,K 3.9 mmol/L (3.5-5.1); SODIUM,NA 135 mmol/L (136-148)
--- NOTE | 2021-03-09 17:25 | EDM.PDOC ---
ED HPI GENERAL MEDICAL PROBLEM - General Chief Complaint: Gastrointestinal Problem Stated Complaint: vomiting,dehydrated Time Seen by Provider: 03/09/21 15:31 Source of Information: Reports: Patient History Limitations: Reports: No Limitations - History of Present Illness INITIAL COMMENTS - FREE TEXT/NARRATIVE: HISTORY AND PHYSICAL: History of present illness: Patient is a 25-year-old male who presents emergency room today with concern of upper abdominal pain, vomiting, and diarrhea since 4:30 in the morning. Patient states that he was seen in the emergency room yesterday and states that at that time he was having a cough and\lung discomfort and thought he had pneumonia as he had this approximately 1 year ago with similar symptoms. Patient states he tested negative for Covid and was told he had bronchitis and was given azithromycin yesterday but due to vomiting today has not been able to take the antibiotics. Patient states that he woke up in the middle of the night at about 4:30 in the morning and states that he has been consistently vomiting since and has had multiple episodes of watery diarrhea and upper abdominal pain/cramping abdominal pain. Patient states he has not been able to take anything for his symptoms due to vomiting. Patient denies any abdominal surgeries or any other health history Patient denies fever, chills, chest pain, shortness of breath, or cough. Denies headache, neck stiff ness, change in vision, syncope, or near syncope. Denies constipation, or dysuria. Has not noted any blood in urine or stool. Review of systems: As per history of present illness and below otherwise all systems reviewed and negative. Past medical history: As per history of present illness and as reviewed below otherwise noncontributory. Surgical history: As per history of present illness and as reviewed below otherwise noncontributory. Social history: See social history for further information Family history: As per history of present illness and as reviewed below otherwise noncontributory. Physical exam: General: Patient is alert, oriented, and in no acute distress. Patient sitting comfortably on exam table. Patient tachycardic 115 on exam otherwise vitally stable and reviewed by me. HEENT: Atraumatic, normocephalic, pupils equal and reactive bilaterally, negative for conjunctival pallor or scleral icterus, mucous membranes moist, TMs normal bilaterally, throat clear, neck supple, nontender, trachea midline. No drooling or trismus noted. No meningeal signs. No hot potato voice noted. Lungs: Clear to auscultation, breath sounds equal bilaterally, chest nontender. Heart: S1S2, regular rate and rhythm without overt murmur Abdomen: Soft, nondistended, severe RUQ tenderness with guarding, negative rebound, and negative son sign. Negative for masses or hepatosplenomegaly. Negative for costovertebral tenderness. Pelvis: Stable nontender. Genitourinary: Deferred. Rectal: Deferred. Skin: Intact, warm, dry. No lesions or rashes noted. Extremities: Atraumatic, negative for cords or calf pain. Neurovascular unremarkable. Neuro: Awake, alert, oriented. Cranial nerves II through XII unremarkable. Cerebellum unremarkable. Motor and sensory unremarkable throughout. Exam nonfocal. Notes: Patient is a 25-year-old male who presents emergency room today secondary to right upper quadrant abdominal pain, nausea, vomiting, and diarrhea since 4830 this morning. Upon arrival to the ED, patient is tachycardic 115's on exam, otherwise vitally stable. Patient does have severe right upper quadrant tenderness with guarding on exam with positive Son sign. Will obtain lab work and abdominal pelvic CT scan. Due to ultrasound non destructive testing scientist limitations, unable to obtain ultrasound at this time. Upon chart review from 03/17/2020, patient was admitted to the hospital after a left lower lobe pneumonia was determined on chest x-ray by the provider seeing patient. At that time, patient was also tachycardic, had an elevated white blood cell count at 20, and was also having nausea, vomiting with cough. Patient states that his symptoms today feel like when he was admitted on that date. CBC today is remarkable for leukocytosis of 27.12, hemoglobin elevated at 17.7, platelets mildly elevated at 418, neutrophil percent count elevated at 88.4 without any bandemia or segs neutrophils. Lactate is within normal limits. CMP shows mild hyponatremia at 135, CO2 decreased at 16.6, alk phos mildly elevated at 131, lipase within normal limits. Remainder of mild derangements of CMP unremarkable. Urinalysis shows 30 protein with greater than 80 ketones concerning for dehydration. 0-2 red blood cells and 0-2 white blood cells without sign of infection. Covid and influenza negative. Abdominal pelvic CT scan shows no acute findings in the abdomen or pelvis. Normal appendix. Subtle groundglass opacity in the left lower lobe could be related to infectious or inflammatory process. CPK within normal limits. Patient has not had any episodes of vomiting today in the emergency room. Patient was unable to leave a stool sample today in the emergency room. Pending blood cultures. Pending Legionella urine. Upon reevaluation of patient, he has great improvement of his abdominal pain and nausea with therapeutics given today in the emergency room. Patient remains mildly tachycardic 100s to 105's after therapeutics today in the emergency room. I did call and speak to the hospitalist on-call, Dr. Mcdonald, and thoroughly discussed patient's case. Will admit to observation to Dr. Mcdonald Voices understanding and is agreeable to plan of care. Denies any further questions or concerns at this time. Diagnostics: CBC, CMP, UA, lipase, abdominal pelvic CT scan with contrast, lactate, blood cultures x2, stool culture/Shiga, ova and parasite, C. difficile stool, Legionella, CPK Therapeutics: NS 3L bolus, Zofran, Toradol, Dilaudid, Zosyn, azithromycin Impression: Community-acquired pneumonia, left lower lobe SIRS, rule out sepsis Leukocytosis, unspecified Upper abdominal pain, unspecified Nausea and vomiting, not intractable Dehydration Plan: Admit to observation to Dr. Mcdonald Definitive disposition and diagnosis as appropriate pending reevaluation and review of above. Abdomen Pain Score (Numeric/FACES): 10 - Related Data Allergies Allergy/AdvReac Type Severity Reaction Status Date / Time No Known Allergies Allergy Verified 03/09/21 15:42 Home Meds: Home Meds . [No Known Home Meds] 03/09/21 [History] Past Medical History - Past Health History Medical/Surgical History: Denies Medical/Surgical History HEENT History: Reports: Impaired Vision, Sinusitis Other HEENT History: wears glasses Cardiovascular History: Reports: None Respiratory History: Reports: None Gastrointestinal History: Reports: None Genitourinary History: Reports: None Musculoskeletal History: Reports: None Neurological History: Other Neuro History: hx of motion sickness Psychiatric History: Reports: Bipolar Endocrine/Metabolic History: Reports: None Hematologic History: Reports: None Immunologic History: Reports: None Oncologic (Cancer) History: Reports: None Dermatologic History: Reports: None - Infectious Disease History Infectious Disease History: Reports: None - Past Surgical History Head Surgeries/Procedures: Reports: None HEENT Surgical History: Reports: None Cardiovascular Surgical History: Reports: None Respiratory Surgical History: Reports: None GI Surgical History: Reports: None Male Surgical History: Reports: None Endocrine Surgical History: Reports: None Neurological Surgical History: Reports: None Musculoskeletal Surgical History: Reports: Other (See Below) Other Musculoskeletal Surgeries/Procedures:: R hand Oncologic Surgical History: Reports: None Dermatological Surgical History: Reports: None Social & Family History - Family History Family Medical History: No Pertinent Family History - Tobacco Use Tobacco Use Status *Q: Current Every Day Tobacco User Years of Tobacco use: 13 Packs/Tins Daily: 0.2 - Caffeine Use Caffeine Use: Reports: None Caffeine Use Comment: 2-3 drinks /day - Recreational Drug Use Recreational Drug Use: Yes Recreational Drug Type: Reports: Marijuana/Hashish Recreational Drug Use Frequency: Daily ED ROS GENERAL - Review of Systems Review Of Systems: Comprehensive ROS is negative, except as noted in HPI. ED EXAM, GENERAL - Physical Exam Exam: See Below (see dictation) Course - Vital Signs Last Recorded V/S: Last Vital Signs Temp 97 F 03/10/21 07:00 Pulse 102 H 03/10/21 07:00 Resp 16 03/10/21 07:00 BP 124/79 03/10/21 07:00 Pulse Ox 98 03/10/21 07:00 - Orders/Labs/Meds Orders: Active Orders 24 hr Category Date Time Status EKG Documentation Completion [RC] STAT Care 03/09/21 15:57 Active C DIFFICILE AG/TOXIN W/REFLEX [RM] Stat Lab 03/09/21 15:56 Ordered CULTURE BLOOD [BC] Stat Lab 03/09/21 16:15 Received CULTURE BLOOD [BC] Stat Lab 03/09/21 16:20 Received LEGIONELLA ANTIGEN [MREF] Stat Lab 03/09/21 15:40 Received OVA & PARASITES BY IMMUNOASSAY [MREF] Stat Lab 03/09/21 15:56 Ordered STOOL CULTURE/SHIGA TOXIN [MREF] Stat Lab 03/09/21 15:56 Ordered Azithromycin [Zithromax] 500 mg Med 03/10/21 19:30 Active Sodium Chloride 0.9% [Normal Saline (AdvBag)] 250 ml IV Q24H Piperacillin/Tazobactam [Piperacil-Tazobact] 3.375 gm Med 03/10/21 01:30 Active Sodium Chloride 0.9% [Normal Saline] 50 ml IV Q6H Blood Culture x2 Reflex Set [OM.PC] Stat Oth 03/09/21 16:04 Ordered Medication Orders Enoxaparin Sodium (Enoxaparin 40 Mg/0.4 Ml Syringe) 40 mg SUBCUT Q24H WYATT Last Admin: 03/09/21 22:51 Dose: 40 mg Documented by: ALEXANDREA Azithromycin 500 mg/ Sodium (Chloride) 250 mls @ 250 mls/hr IV Q24H WYATT Piperacillin Sod/Tazobactam (Sod 3.375 gm/ Sodium Chloride) 50 mls @ 100 mls/hr IV Q6H WYATT Last Admin: 03/10/21 06:29 Dose: 100 mls/hr Documented by: Infusion: 03/10/21 01:34 Dose: 100 mls/hr Documented by: Admin: 03/10/21 01:04 Dose: 100 mls/hr Documented by: ALEXANDREA Ondansetron HCl (Ondansetron 4 Mg/2 Ml Sdv) 4 mg IVPUSH Q4H PRN PRN Reason: Nausea Last Admin: 03/10/21 01:03 Dose: 4 mg Documented by: ALEXANDREA Labs: Laboratory Tests 03/09/21 03/09/21 03/09/21 Range/Units 15:40 15:40 15:40 WBC 27.12 H (4.0-11.0) K/uL RBC 5.72 (4.50-5.90) M/uL Hgb 17.7 H (13.0-17.0) g/dL Hct 48.7 (38.0-50.0) % MCV 85.1 (80.0-98.0) fL MCH 30.9 (27.0-32.0) pg MCHC 36.3 (31.0-37.0) g/dL RDW Std Deviation 40.1 (28.0-62.0) fl RDW Coeff of Debbie 13 (11.0-15.0) % Plt Count 418 H (150-400) K/uL MPV 11.40 (7.40-12.00) fL Neut % (Auto) 88.4 H (48.0-80.0) % Lymph % (Auto) 7.1 L (16.0-40.0) % [place] % (Auto) 4.4 (0.0-15.0) % Eos % (Auto) 0.0 (0.0-7.0) % Baso % (Auto) 0.1 (0.0-1.5) % Neut # (Auto) 24.0 H (1.4-5.7) K/uL Lymph # (Auto) 1.9 (0.6-2.4) K/uL [place] # (Auto) 1.2 H (0.0-0.8) K/uL Eos # (Auto) 0.0 (0.0-0.7) K/uL Baso # (Auto) 0.0 (0.0-0.1) K/uL Nucleated RBC % 0.0 /100WBC Nucleated RBCs # 0 K/uL Sodium 135 L (136-148) mmol/L Potassium 3.9 (3.5-5.1) mmol/L Chloride 98 (98-107) mmol/L Carbon Dioxide 16.6 L (21.0-32.0) mmol/L BUN 12 (7.0-18.0) mg/dL Creatinine 1.0 (0.8-1.3) mg/dL Est Cr Clr Drug Dosing 122.36 mL/min Estimated GFR (MDRD) > 60.0 ml/min Glucose 98 (74-106) mg/dL Lactic Acid (0.4-2.0) mmol/L Calcium 9.4 (8.5-10.1) mg/dL Phosphorus (2.6-4.7) mg/dL Total Bilirubin 0.9 (0.2-1.0) mg/dL AST 17 (15-37) IU/L ALT 23 (14-63) IU/L Alkaline Phosphatase 131 H (46-116) U/L Creatine Kinase (26-308) U/L Total Protein 9.1 H (6.4-8.2) g/dL Albumin 4.9 (3.4-5.0) g/dL Globulin 4.2 H (2.6-4.0) g/dL Albumin/Globulin Ratio 1.2 (0.9-1.6) Lipase 60 L (73-393) U/L Urine Color YELLOW Urine Appearance CLEAR Urine pH 6.0 (5.0-8.0) Ur Specific [place] >= 1.030 (1.001-1.035) Urine Protein 30 H (NEGATIVE) mg/dL Urine Glucose (UA) NEGATIVE (NEGATIVE) mg/dL Urine Ketones >=80 (NEGATIVE) mg/dL Urine Occult Blood SMALL H (NEGATIVE) Urine Nitrite NEGATIVE (NEGATIVE) Urine Bilirubin SMALL H (NEGATIVE) Urine Ictotest NEGATIVE Urine Urobilinogen 0.2 (<2.0) EU/dL Ur Leukocyte Esterase NEGATIVE (NEGATIVE) Urine RBC 0-2 (0-2/HPF) Urine WBC 0-2 (0-5/HPF) Ur Epithelial Cells FEW (NONE-FEW) Urine Bacteria FEW (NEGATIVE) Urine Mucus LIGHT (NONE-MOD) Influenza Type A RNA (NEGATIVE) Influenza Type B RNA (NEGATIVE) SARS-CoV-2 RNA (RODERICK) (NEGATIVE) 03/09/21 03/09/21 03/09/21 Range/Units 15:40 16:15 18:46 WBC (4.0-11.0) K/uL RBC (4.50-5.90) M/uL Hgb (13.0-17.0) g/dL Hct (38.0-50.0) % MCV (80.0-98.0) fL MCH (27.0-32.0) pg MCHC (31.0-37.0) g/dL RDW Std Deviation (28.0-62.0) fl RDW Coeff of Debbie (11.0-15.0) % Plt Count (150-400) K/uL MPV (7.40-12.00) fL Neut % (Auto) (48.0-80.0) % Lymph % (Auto) (16.0-40.0) % [place] % (Auto) (0.0-15.0) % Eos % (Auto) (0.0-7.0) % Baso % (Auto) (0.0-1.5) % Neut # (Auto) (1.4-5.7) K/uL Lymph # (Auto) (0.6-2.4) K/uL [place] # (Auto) (0.0-0.8) K/uL Eos # (Auto) (0.0-0.7) K/uL Baso # (Auto) (0.0-0.1) K/uL Nucleated RBC % /100WBC Nucleated RBCs # K/uL Sodium (136-148) mmol/L Potassium (3.5-5.1) mmol/L Chloride (98-107) mmol/L Carbon Dioxide (21.0-32.0) mmol/L BUN (7.0-18.0) mg/dL Creatinine (0.8-1.3) mg/dL Est Cr Clr Drug Dosing mL/min Estimated GFR (MDRD) ml/min Glucose (74-106) mg/dL Lactic Acid 1.2 (0.4-2.0) mmol/L Calcium (8.5-10.1) mg/dL Phosphorus 2.9 (2.6-4.7) mg/dL Total Bilirubin (0.2-1.0) mg/dL AST (15-37) IU/L ALT (14-63) IU/L Alkaline Phosphatase (46-116) U/L Creatine Kinase 127 (26-308) U/L Total Protein (6.4-8.2) g/dL Albumin (3.4-5.0) g/dL Globulin (2.6-4.0) g/dL Albumin/Globulin Ratio (0.9-1.6) Lipase (73-393) U/L Urine Color Urine Appearance Urine pH (5.0-8.0) Ur Specific [place] (1.001-1.035) Urine Protein (NEGATIVE) mg/dL Urine Glucose (UA) (NEGATIVE) mg/dL Urine Ketones (NEGATIVE) mg/dL Urine Occult Blood (NEGATIVE) Urine Nitrite (NEGATIVE) Urine Bilirubin (NEGATIVE) Urine Ictotest Urine Urobilinogen (<2.0) EU/dL Ur Leukocyte Esterase (NEGATIVE) Urine RBC (0-2/HPF) Urine WBC (0-5/HPF) Ur Epithelial Cells (NONE-FEW) Urine Bacteria (NEGATIVE) Urine Mucus (NONE-MOD) Influenza Type A RNA NEGATIVE (NEGATIVE) Influenza Type B RNA NEGATIVE (NEGATIVE) SARS-CoV-2 RNA (RODERICK) NEGATIVE (NEGATIVE) Meds: Medications Generic Name Dose Route Start Last Admin Trade Name Freq PRN Reason Stop Dose Admin Enoxaparin Sodium 40 mg 03/09/21 22:00 03/09/21 22:51 Enoxaparin 40 Mg/0.4 Ml Syringe SUBCUT 40 mg Q24H WYATT Administration Azithromycin 500 mg/ Sodium 250 mls @ 250 mls/hr 03/10/21 19:30 Chloride IV Q24H WYATT Piperacillin Sod/Tazobactam 50 mls @ 100 mls/hr 03/10/21 01:30 03/10/21 06:29 Sod 3.375 gm/ Sodium Chloride IV 100 mls/hr Q6H WYATT Administration Ondansetron HCl 4 mg 03/09/21 21:45 03/10/21 01:03 Ondansetron 4 Mg/2 Ml Sdv IVPUSH 4 mg Q4H PRN Administration Nausea Discontinued Medications Generic Name Dose Route Start Last Admin Trade Name Freq PRN Reason Stop Dose Admin Hydromorphone HCl 0.5 mg 03/09/21 15:55 03/09/21 16:17 Hydromorphone 2 Mg/Ml Syringe IVPUSH 03/09/21 15:56 0.5 mg ONETIME ONE Administration Hydromorphone HCl 0.5 mg 03/09/21 19:21 03/09/21 19:26 Hydromorphone 2 Mg/Ml Syringe IVPUSH 03/09/21 19:22 0.5 mg ONETIME ONE Administration Sodium Chloride 1,000 mls @ 999 mls/hr 03/09/21 15:55 03/09/21 16:17 Normal Saline IV 03/09/21 16:55 999 mls/hr BOLUS ONE Administration Sodium Chloride 1,000 mls @ 999 mls/hr 03/09/21 16:43 03/09/21 16:57 Normal Saline IV 03/09/21 17:43 999 mls/hr STAT ONE Administration Azithromycin 500 mg/ Sodium 250 mls @ 250 mls/hr 03/09/21 19:00 Chloride IV ONETIME WYATT Azithromycin 500 mg/ Sodium 250 mls @ 250 mls/hr 03/09/21 19:15 03/09/21 19:18 Chloride IV 250 mls/hr ONETIME WYATT Administration Piperacillin Sod/Tazobactam 50 mls @ 100 mls/hr 03/09/21 19:31 03/09/21 19:42 Sod 3.375 gm/ Sodium Chloride IV 03/09/21 20:00 100 mls/hr ONETIME ONE Administration Sodium Chloride 1,000 mls @ 999 mls/hr 03/09/21 19:51 03/09/21 20:17 Normal Saline IV 03/09/21 20:51 999 mls/hr STAT ONE Administration Ketorolac Tromethamine 30 mg 03/09/21 15:55 03/09/21 16:17 Ketorolac 30 Mg/Ml Sdv IVPUSH 03/09/21 15:56 30 mg ONETIME ONE Administration Ondansetron HCl 4 mg 03/09/21 15:55 03/09/21 16:17 Ondansetron 4 Mg/2 Ml Sdv IVPUSH 03/09/21 15:56 4 mg ONETIME ONE Administration Ondansetron HCl 4 mg 03/09/21 19:21 03/09/21 19:26 Ondansetron 4 Mg/2 Ml Sdv IVPUSH 03/09/21 19:22 4 mg ONETIME ONE Administration Departure - Departure Time of Disposition: 20:20 Disposition: Refer to Observation Clinical Impression: SIRS (systemic inflammatory response syndrome), Dehydration Community acquired pneumonia Qualifiers: Laterality: left Lung location: lower lobe of lung Qualified Code(s): J18.9 - Pneumonia, unspecified organism Leukocytosis Qualifiers: Leukocytosis type: unspecified Qualified Code(s): D72.829 - Elevated white blood cell count, unspecified Nausea and vomiting Qualifiers: Vomiting type: unspecified Vomiting Intractability: non-intractable Qualified Code(s): R11.2 - Nausea with vomiting, unspecified Abdominal pain Qualifiers: Abdominal location: right upper quadrant Qualified Code(s): R10.11 - Right upper quadrant pain - Discharge Information Sepsis Event Note (ED) - Evaluation Sepsis Screening Result: No Definite Risk - My Orders Last 24 Hours: My Active Orders 03/09/21 15:40 LEGIONELLA ANTIGEN [MREF] Stat 03/09/21 15:56 C DIFFICILE AG/TOXIN W/REFLEX [RM] Stat OVA & PARASITES BY IMMUNOASSAY [MREF] Stat STOOL CULTURE/SHIGA TOXIN [MREF] Stat 03/09/21 15:57 EKG Documentation Completion [RC] STAT 03/09/21 16:04 Blood Culture x2 Reflex Set [OM.PC] Stat 03/09/21 16:15 CULTURE BLOOD [BC] Stat 03/09/21 16:20 CULTURE BLOOD [BC] Stat - Assessment/Plan Last 24 Hours: My Active Orders 03/09/21 15:40 LEGIONELLA ANTIGEN [MREF] Stat 03/09/21 15:56 C DIFFICILE AG/TOXIN W/REFLEX [RM] Stat OVA & PARASITES BY IMMUNOASSAY [MREF] Stat STOOL CULTURE/SHIGA TOXIN [MREF] Stat 03/09/21 15:57 EKG Documentation Completion [RC] STAT 03/09/21 16:04 Blood Culture x2 Reflex Set [OM.PC] Stat 03/09/21 16:15 CULTURE BLOOD [BC] Stat 03/09/21 16:20 CULTURE BLOOD [BC] Stat
--- NOTE | 2021-03-09 18:40 | CT ---
Indication: Right upper quadrant pain Technique: Contrast enhanced CT abdomen pelvis of 100 mL Isovue 370 Comparison: No comparison Findings: Heart size normal. No pericardial effusion. Subtle ground-glass opacities left lower lobe Fatty liver. Gallbladder pancreas spleen adrenal glands are unremarkable. Symmetric enhancement of both kidneys. No hydronephrosis. Normal appendix. Urinary bladder unremarkable. Prostate and seminal vesicles within normal limits. The bowel appears unremarkable. No suspicious bony lesions. Impression: 1. No acute findings in the abdomen or pelvis. Normal appendix. 2. Subtle ground-glass opacities left lower lobe could be related to infectious inflammatory process. Please note that all CT scans at this facility use dose modulation, iterative reconstruction, and/or weight-based dosing when appropriate to reduce radiation dose to as low as reasonably achievable. Dictated by Brie Hobson MD @ 03/09/2021 6:40:[address] Brie Hobson @ Mar 09 2021 6:40PM
[2021-03-09] MEDS ORDERED: Azithromycin 500 MG in Sodium Chloride 0.9% 250 ML IV SCH ×2 (19:00→19:15)
[2021-03-09] MEDS ORDERED: Piperacillin/Tazobactam 3.375 GM in Sodium Chloride 0.9% 50 ML IV ONE (19:31)
[2021-03-09 19:33] LABS: CORONAVIRUS COVID-19 NAA NEGATIVE (NEGATIVE); INFLUENZA A NAA NEGATIVE (NEGATIVE); INFLUENZA B NAA NEGATIVE (NEGATIVE)
--- NOTE | 2021-03-09 21:53 | PCM.HP.2 ---
H&P History of Present Illness - General Date of Service: 03/09/21 Admit Problem/Dx: Admission Diagnosis/Problem Admission Diagnosis/Problem Pneumonia - History of Present Illness Initial Comments - Free Text/Narative: 25 yo male who presents with two day history of chills, myalgias, and productive cough. Patient reports cramps in chest and abdomen with diarrhea yesterday. He was seen in the ED yesterday and diagnosed with bronchitis and sent home with prednisone and azithromycin. Due to nausea he has not taking any pills he has been prescribed. Last year he was hospitalized for pneumonia and he feels his symptoms are the same. He has quit vaping and now smokes a pack a week. Abdomen Pain Score (Numeric/FACES): 10 - Related Data Allergies/Adverse Reactions: Allergies Allergy/AdvReac Type Severity Reaction Status Date / Time No Known Allergies Allergy Verified 03/09/21 15:42 Home Medications: Home Meds . [No Known Home Meds] 03/09/21 [History] Past Medical History - Past Health History Medical/Surgical History: Denies Medical/Surgical History HEENT History: Reports: Impaired Vision, Sinusitis Other HEENT History: wears glasses Cardiovascular History: Reports: None Respiratory History: Reports: None Gastrointestinal History: Reports: None Genitourinary History: Reports: None Musculoskeletal History: Reports: None Neurological History: Other Neuro History: hx of motion sickness Psychiatric History: Reports: Bipolar Endocrine/Metabolic History: Reports: None Hematologic History: Reports: None Immunologic History: Reports: None Oncologic (Cancer) History: Reports: None Dermatologic History: Reports: None - Infectious Disease History Infectious Disease History: Reports: None - Past Surgical History Head Surgeries/Procedures: Reports: None HEENT Surgical History: Reports: None Cardiovascular Surgical History: Reports: None Respiratory Surgical History: Reports: None GI Surgical History: Reports: None Male Surgical History: Reports: None Endocrine Surgical History: Reports: None Neurological Surgical History: Reports: None Musculoskeletal Surgical History: Reports: Other (See Below) Other Musculoskeletal Surgeries/Procedures:: R hand Oncologic Surgical History: Reports: None Dermatological Surgical History: Reports: None Social & Family History - Family History Family Medical History: No Pertinent Family History - Tobacco Use Tobacco Use Status *Q: Current Every Day Tobacco User Years of Tobacco use: 13 Packs/Tins Daily: 0.2 - Caffeine Use Caffeine Use: Reports: None Caffeine Use Comment: 2-3 drinks /day - Recreational Drug Use Recreational Drug Use: Yes Recreational Drug Type: Reports: Marijuana/Hashish Recreational Drug Use Frequency: Daily H&P Review of Systems - Review of Systems: Review Of Systems: Comprehensive ROS is negative, except as noted in HPI. Exam - Exam Exam: See Below - Vital Signs Vital Signs: Last Vital Signs Temp 36.6 C 03/09/21 15:42 Pulse 81 03/09/21 18:28 Resp 16 03/09/21 18:28 BP 133/60 03/09/21 18:28 Pulse Ox 95 03/09/21 18:28 Weight: 104.326 kg - Exam General: Alert, Oriented HEENT: Mucosa Moist & [place] Neck: Supple Lungs: Clear to Auscultation, Normal Respiratory Effort Cardiovascular: Regular Rate, Regular Rhythm GI/Abdominal Exam: Normal Bowel Sounds, Soft, Non-Tender Extremities: Non-Tender, No Pedal Edema Skin: Warm, Dry, Intact Neurological: No: Focal Deficit - Patient Data Lab Results Last 24 hrs: Laboratory Results - last 24 hr 03/09/21 03/09/21 03/09/21 Range/Units 15:40 15:40 15:40 WBC 27.12 H (4.0-11.0) K/uL RBC 5.72 (4.50-5.90) M/uL Hgb 17.7 H (13.0-17.0) g/dL Hct 48.7 (38.0-50.0) % MCV 85.1 (80.0-98.0) fL MCH 30.9 (27.0-32.0) pg MCHC 36.3 (31.0-37.0) g/dL RDW Std Deviation 40.1 (28.0-62.0) fl RDW Coeff of Debbie 13 (11.0-15.0) % Plt Count 418 H (150-400) K/uL MPV 11.40 (7.40-12.00) fL Neut % (Auto) 88.4 H (48.0-80.0) % Lymph % (Auto) 7.1 L (16.0-40.0) % [place] % (Auto) 4.4 (0.0-15.0) % Eos % (Auto) 0.0 (0.0-7.0) % Baso % (Auto) 0.1 (0.0-1.5) % Neut # (Auto) 24.0 H (1.4-5.7) K/uL Lymph # (Auto) 1.9 (0.6-2.4) K/uL [place] # (Auto) 1.2 H (0.0-0.8) K/uL Eos # (Auto) 0.0 (0.0-0.7) K/uL Baso # (Auto) 0.0 (0.0-0.1) K/uL Nucleated RBC % 0.0 /100WBC Nucleated RBCs # 0 K/uL Sodium 135 L (136-148) mmol/L Potassium 3.9 (3.5-5.1) mmol/L Chloride 98 (98-107) mmol/L Carbon Dioxide 16.6 L (21.0-32.0) mmol/L BUN 12 (7.0-18.0) mg/dL Creatinine 1.0 (0.8-1.3) mg/dL Est Cr Clr Drug Dosing 122.36 mL/min Estimated GFR (MDRD) > 60.0 ml/min Glucose 98 (74-106) mg/dL Lactic Acid (0.4-2.0) mmol/L Calcium 9.4 (8.5-10.1) mg/dL Phosphorus (2.6-4.7) mg/dL Total Bilirubin 0.9 (0.2-1.0) mg/dL AST 17 (15-37) IU/L ALT 23 (14-63) IU/L Alkaline Phosphatase 131 H (46-116) U/L Creatine Kinase (26-308) U/L Total Protein 9.1 H (6.4-8.2) g/dL Albumin 4.9 (3.4-5.0) g/dL Globulin 4.2 H (2.6-4.0) g/dL Albumin/Globulin Ratio 1.2 (0.9-1.6) Lipase 60 L (73-393) U/L Urine Color YELLOW Urine Appearance CLEAR Urine pH 6.0 (5.0-8.0) Ur Specific [place] >= 1.030 (1.001-1.035) Urine Protein 30 H (NEGATIVE) mg/dL Urine Glucose (UA) NEGATIVE (NEGATIVE) mg/dL Urine Ketones >=80 (NEGATIVE) mg/dL Urine Occult Blood SMALL H (NEGATIVE) Urine Nitrite NEGATIVE (NEGATIVE) Urine Bilirubin SMALL H (NEGATIVE) Urine Urobilinogen 0.2 (<2.0) EU/dL Ur Leukocyte Esterase NEGATIVE (NEGATIVE) Urine RBC 0-2 (0-2/HPF) Urine WBC 0-2 (0-5/HPF) Ur Epithelial Cells FEW (NONE-FEW) Urine Bacteria FEW (NEGATIVE) Urine Mucus LIGHT (NONE-MOD) Influenza Type A RNA (NEGATIVE) Influenza Type B RNA (NEGATIVE) SARS-CoV-2 RNA (RODERICK) (NEGATIVE) 03/09/21 03/09/21 03/09/21 Range/Units 15:40 16:15 18:46 WBC (4.0-11.0) K/uL RBC (4.50-5.90) M/uL Hgb (13.0-17.0) g/dL Hct (38.0-50.0) % MCV (80.0-98.0) fL MCH (27.0-32.0) pg MCHC (31.0-37.0) g/dL RDW Std Deviation (28.0-62.0) fl RDW Coeff of Debbie (11.0-15.0) % Plt Count (150-400) K/uL MPV (7.40-12.00) fL Neut % (Auto) (48.0-80.0) % Lymph % (Auto) (16.0-40.0) % [place] % (Auto) (0.0-15.0) % Eos % (Auto) (0.0-7.0) % Baso % (Auto) (0.0-1.5) % Neut # (Auto) (1.4-5.7) K/uL Lymph # (Auto) (0.6-2.4) K/uL [place] # (Auto) (0.0-0.8) K/uL Eos # (Auto) (0.0-0.7) K/uL Baso # (Auto) (0.0-0.1) K/uL Nucleated RBC % /100WBC Nucleated RBCs # K/uL Sodium (136-148) mmol/L Potassium (3.5-5.1) mmol/L Chloride (98-107) mmol/L Carbon Dioxide (21.0-32.0) mmol/L BUN (7.0-18.0) mg/dL Creatinine (0.8-1.3) mg/dL Est Cr Clr Drug Dosing mL/min Estimated GFR (MDRD) ml/min Glucose (74-106) mg/dL Lactic Acid 1.2 (0.4-2.0) mmol/L Calcium (8.5-10.1) mg/dL Phosphorus 2.9 (2.6-4.7) mg/dL Total Bilirubin (0.2-1.0) mg/dL AST (15-37) IU/L ALT (14-63) IU/L Alkaline Phosphatase (46-116) U/L Creatine Kinase 127 (26-308) U/L Total Protein (6.4-8.2) g/dL Albumin (3.4-5.0) g/dL Globulin (2.6-4.0) g/dL Albumin/Globulin Ratio (0.9-1.6) Lipase (73-393) U/L Urine Color Urine Appearance Urine pH (5.0-8.0) Ur Specific [place] (1.001-1.035) Urine Protein (NEGATIVE) mg/dL Urine Glucose (UA) (NEGATIVE) mg/dL Urine Ketones (NEGATIVE) mg/dL Urine Occult Blood (NEGATIVE) Urine Nitrite (NEGATIVE) Urine Bilirubin (NEGATIVE) Urine Urobilinogen (<2.0) EU/dL Ur Leukocyte Esterase (NEGATIVE) Urine RBC (0-2/HPF) Urine WBC (0-5/HPF) Ur Epithelial Cells (NONE-FEW) Urine Bacteria (NEGATIVE) Urine Mucus (NONE-MOD) Influenza Type A RNA NEGATIVE (NEGATIVE) Influenza Type B RNA NEGATIVE (NEGATIVE) SARS-CoV-2 RNA (RODERICK) NEGATIVE (NEGATIVE) Result Diagrams: 03/09/21 15:40 03/09/21 15:40 Sepsis Event Note - Evaluation Sepsis Screening Result: No Definite Risk - Focused Exam Vital Signs: Vital Signs Temp Pulse Resp BP Pulse Ox 03/09/21 18:28 81 16 133/60 95 03/09/21 16:57 99 16 142/96 H 99 03/09/21 15:42 36.6 C 118 H 16 166/97 H 95 - Problem List (1) Sepsis SNOMED Code(s): 98018061 ICD Code: A41.9 - SEPSIS, UNSPECIFIED ORGANISM Status: Acute Current Visit: Yes (2) Community acquired pneumonia SNOMED Code(s): 534135653 ICD Code: J18.9 - PNEUMONIA, UNSPECIFIED ORGANISM Status: Acute Current V isit: Yes Qualifiers: Laterality: left Lung location: lower lobe of lung Qualified Code(s): J18.9 - Pneumonia, unspecified organism (3) Dehydration SNOMED Code(s): 63245515 ICD Code: E86.0 - DEHYDRATION Status: Acute Current Visit: Yes (4) Leukocytosis SNOMED Code(s): 050116380, 734296248 ICD Code: D72.829 - ELEVATED WHITE BLOOD CELL COUNT, UNSPECIFIED Status: Acute Current Visit: Yes Qualifiers: Leukocytosis type: unspecified Qualified Code(s): D72.829 - Elevated white blood cell count, unspecified (5) Nausea and vomiting SNOMED Code(s): 51729006 ICD Code: R11.2 - NAUSEA WITH VOMITING, UNSPECIFIED Status: Acute Current Visit: Yes Qualifiers: Vomiting type: unspecified Vomiting Intractability: non-intractable Qualified Code(s): R11.2 - Nausea with vomiting, unspecified Problem List Initiated/Reviewed/Updated: Yes Orders Last 24hrs: Active Orders 24 hr Category Date Time Status Patient Status [ADT] Routine ADT 03/09/21 21:45 Ordered Antiembolic Devices [RC] PER UNIT ROUTINE Care 03/09/21 21:46 Ordered EKG Documentation Completion [RC] STAT Care 03/09/21 15:57 Active Oxygen Therapy [RC] PRN Care 03/09/21 21:45 Ordered Up ad Bere [RC] ASDIRECTED Care 03/09/21 21:45 Ordered VTE/DVT Education [RC] PER UNIT ROUTINE Care 03/09/21 21:45 Ordered Vital Signs [RC] Q4H Care 03/09/21 21:45 Ordered Regular Diet [DIET] Diet 03/09/21 Breakfast Ordered CXR [Chest 2V] [CR] Routine Exams 03/09/21 21:47 Ordered BASIC METABOLIC PANEL,BMP [CHEM] AM Lab 03/10/21 05:11 Ordered C DIFFICILE AG/TOXIN W/REFLEX [RM] Stat Lab 03/09/21 15:56 Ordered CBC WITH AUTO DIFF [HEME] AM Lab 03/10/21 05:11 Ordered CULTURE BLOOD [BC] Stat Lab 03/09/21 16:15 Received CULTURE BLOOD [BC] Stat Lab 03/09/21 16:20 Received LEGIONELLA ANTIGEN [MREF] Stat Lab 03/09/21 15:40 Received OVA & PARASITES BY IMMUNOASSAY [MREF] Stat Lab 03/09/21 15:56 Ordered STOOL CULTURE/SHIGA TOXIN [MREF] Stat Lab 03/09/21 15:56 Ordered Azithromycin [Zithromax] 500 mg Med 03/09/21 19:15 Active Sodium Chloride 0.9% [Normal Saline (AdvBag)] 250 ml IV ONETIME Azithromycin [Zithromax] 500 mg Med 03/10/21 19:30 Ordered Sodium Chloride 0.9% [Normal Saline (AdvBag)] 250 ml IV Q24H Enoxaparin [Lovenox] Med 03/09/21 21:45 Ordered 40 mg SUBCUT Q24H Ondansetron [Zofran] Med 03/09/21 21:45 Ordered 4 mg IVPUSH Q4H PRN Piperacillin/Tazobactam [Piperacil-Tazobact] 3.375 gm Med 03/10/21 01:30 Ordered Sodium Chloride 0.9% [Normal Saline] 50 ml IV Q6H Blood Culture x2 Reflex Set [OM.PC] Stat Oth 03/09/21 16:04 Ordered Sequential Compression Device [OM.PC] Per Unit Routine Oth 03/09/21 21:45 Ordered Resuscitation Status Routine Resus Stat 03/09/21 21:45 Ordered Medication Orders Azithromycin 500 mg/ Sodium (Chloride) 250 mls @ 250 mls/hr IV ONETIME [facility] Last Admin: 03/09/21 19:18 Dose: 250 mls/hr Documented by: CARERIC Azithromycin 500 mg/ Sodium (Chloride) 250 mls @ 250 mls/hr IV Q24H [facility] Piperacillin Sod/Tazobactam (Sod 3.375 gm/ Sodium Chloride) 50 mls @ 100 mls/hr IV Q6H [facility] Assessment/Plan Comment:: 25 yo male admitted with pneumonia. We will treat with zosyn and azithromycin. Cultures are pending. Patient is feeling better after IV fluids.
[2021-03-09] MEDS: Enoxaparin 40 MG/0.4 ML Syringe SUBCUT SCH (22:51)
--- NOTE | 2021-03-09 23:51 | CR ---
INDICATION: Pneumonia TECHNIQUE: Chest radiograph 2 views on 3 films COMPARISON: 03/08/2021 FINDINGS: Mediastinum: The mediastinum is normal in appearance. The heart silhouette is normal in size and morphology. Lung: Both lungs are unremarkable in appearance. No sign of pleural effusion seen. No pneumothorax is identified. Bone and Soft tissue: Unremarkable for age. IMPRESSION: 1. No acute cardiopulmonary disease is seen. Dictated by: Mesfin Russell MD @ 03/09/2021 23:50:22 (Electronically Signed)
[2021-03-10] MEDS: Ondansetron 4 MG/2 ML SDV IVPUSH PRN ×2 (01:03→13:00)
[2021-03-10] MEDS: Piperacillin/Tazobactam 3.375 GM in Sodium Chloride 0.9% 50 ML IV SCH ×4 (01:04→20:17)
[2021-03-10 07:04] LABS: BLOOD UREA NITROGEN,BUN 7 mg/dL (7.0-18.0); CARBON DIOXIDE,CO2 20.7 mmol/L (21.0-32.0); CHLORIDE,CL 104 mmol/L (98-107); GLUCOSE RANDOM 79 mg/dL (74-106); POTASSIUM,K 3.6 mmol/L (3.5-5.1); SODIUM,NA 138 mmol/L (136-148)
--- NOTE | 2021-03-10 12:44 | PCM.PN ---
- General Info Date of Service: 03/10/21 Admission Dx/Problem (Free Text): Admission Diagnosis/Problem Admission Diagnosis/Problem Pneumonia Subjective Update: 25-year-old male admitted for community-acquired pneumonia. Patient has been treated with azithromycin and Zosyn. Patient had 2 days of chills, myalgias and productive cough with associated abdominal discomfort and one episode of diarrhea. Yesterday patient was seen in the ED and discharged on prednisone and azithromycin which he was unable to take due to nausea. Overnight patient states that his abdominal and chest discomfort has subsided but complains of sore throat. Patient's cough is now productive of clear sputum. Denies fever, chills, chest pain, palpitations or headache. - Review of Systems General: Denies: Fever, Chills HEENT: Reports: Sore Throat. Denies: Sinus Congestion Pulmonary: Reports: Cough, Sputum. Denies: Shortness of Breath, Pleuritic Chest Pain Cardiovascular: Denies: Chest Pain, Palpitations, Lightheadedness Gastrointestinal: Denies: Abdominal Pain, Diarrhea, Nausea, Vomiting Genitourinary: Denies: Dysuria, Frequency, Burning, Hematuria Musculoskeletal: Reports: No Symptoms Skin: Reports: No Symptoms Neurological: Reports: No Symptoms - Patient Data Vitals - Most Recent: Last Vital Signs Temp 97 F 03/10/21 07:00 Pulse 102 H 03/10/21 07:00 Resp 16 03/10/21 07:00 BP 124/79 03/10/21 07:00 Pulse Ox 98 03/10/21 07:00 Weight - Most Recent: 250 lb 3.2 oz I&O - Last 24 Hours: Intake & Output 03/09/21 03/10/21 03/10/21 22:59 06:59 14:59 Intake Total 1600 Output Total 700 Balance 900 Lab Results Last 24 Hours: Laboratory Results - last 24 hr 03/09/21 03/09/21 03/09/21 Range/Units 15:40 15:40 15:40 WBC 27.12 H (4.0-11.0) K/uL RBC 5.72 (4.50-5.90) M/uL Hgb 17.7 H (13.0-17.0) g/dL Hct 48.7 (38.0-50.0) % MCV 85.1 (80.0-98.0) fL MCH 30.9 (27.0-32.0) pg MCHC 36.3 (31.0-37.0) g/dL RDW Std Deviation 40.1 (28.0-62.0) fl RDW Coeff of Debbie 13 (11.0-15.0) % Plt Count 418 H (150-400) K/uL MPV 11.40 (7.40-12.00) fL Neut % (Auto) 88.4 H (48.0-80.0) % Lymph % (Auto) 7.1 L (16.0-40.0) % [place] % (Auto) 4.4 (0.0-15.0) % Eos % (Auto) 0.0 (0.0-7.0) % Baso % (Auto) 0.1 (0.0-1.5) % Neut # (Auto) 24.0 H (1.4-5.7) K/uL Lymph # (Auto) 1.9 (0.6-2.4) K/uL [place] # (Auto) 1.2 H (0.0-0.8) K/uL Eos # (Auto) 0.0 (0.0-0.7) K/uL Baso # (Auto) 0.0 (0.0-0.1) K/uL Nucleated RBC % 0.0 /100WBC Nucleated RBCs # 0 K/uL Sodium 135 L (136-148) mmol/L Potassium 3.9 (3.5-5.1) mmol/L Chloride 98 (98-107) mmol/L Carbon Dioxide 16.6 L (21.0-32.0) mmol/L BUN 12 (7.0-18.0) mg/dL Creatinine 1.0 (0.8-1.3) mg/dL Est Cr Clr Drug Dosing 122.36 mL/min Estimated GFR (MDRD) > 60.0 ml/min Glucose 98 (74-106) mg/dL Lactic Acid (0.4-2.0) mmol/L Calcium 9.4 (8.5-10.1) mg/dL Phosphorus (2.6-4.7) mg/dL Total Bilirubin 0.9 (0.2-1.0) mg/dL AST 17 (15-37) IU/L ALT 23 (14-63) IU/L Alkaline Phosphatase 131 H (46-116) U/L Creatine Kinase (26-308) U/L Total Protein 9.1 H (6.4-8.2) g/dL Albumin 4.9 (3.4-5.0) g/dL Globulin 4.2 H (2.6-4.0) g/dL Albumin/Globulin Ratio 1.2 (0.9-1.6) Lipase 60 L (73-393) U/L Urine Color YELLOW Urine Appearance CLEAR Urine pH 6.0 (5.0-8.0) Ur Specific [place] >= 1.030 (1.001-1.035) Urine Protein 30 H (NEGATIVE) mg/dL Urine Glucose (UA) NEGATIVE (NEGATIVE) mg/dL Urine Ketones >=80 (NEGATIVE) mg/dL Urine Occult Blood SMALL H (NEGATIVE) Urine Nitrite NEGATIVE (NEGATIVE) Urine Bilirubin SMALL H (NEGATIVE) Urine Ictotest NEGATIVE Urine Urobilinogen 0.2 (<2.0) EU/dL Ur Leukocyte Esterase NEGATIVE (NEGATIVE) Urine RBC 0-2 (0-2/HPF) Urine WBC 0-2 (0-5/HPF) Ur Epithelial Cells FEW (NONE-FEW) Urine Bacteria FEW (NEGATIVE) Urine Mucus LIGHT (NONE-MOD) Influenza Type A RNA (NEGATIVE) Influenza Type B RNA (NEGATIVE) SARS-CoV-2 RNA (RODERICK) (NEGATIVE) 03/09/21 03/09/21 03/09/21 Range/Units 15:40 16:15 18:46 WBC (4.0-11.0) K/uL RBC (4.50-5.90) M/uL Hgb (13.0-17.0) g/dL Hct (38.0-50.0) % MCV (80.0-98.0) fL MCH (27.0-32.0) pg MCHC (31.0-37.0) g/dL RDW Std Deviation (28.0-62.0) fl RDW Coeff of Debbie (11.0-15.0) % Plt Count (150-400) K/uL MPV (7.40-12.00) fL Neut % (Auto) (48.0-80.0) % Lymph % (Auto) (16.0-40.0) % [place] % (Auto) (0.0-15.0) % Eos % (Auto) (0.0-7.0) % Baso % (Auto) (0.0-1.5) % Neut # (Auto) (1.4-5.7) K/uL Lymph # (Auto) (0.6-2.4) K/uL [place] # (Auto) (0.0-0.8) K/uL Eos # (Auto) (0.0-0.7) K/uL Baso # (Auto) (0.0-0.1) K/uL Nucleated RBC % /100WBC Nucleated RBCs # K/uL Sodium (136-148) mmol/L Potassium (3.5-5.1) mmol/L Chloride (98-107) mmol/L Carbon Dioxide (21.0-32.0) mmol/L BUN (7.0-18.0) mg/dL Creatinine (0.8-1.3) mg/dL Est Cr Clr Drug Dosing mL/min Estimated GFR (MDRD) ml/min Glucose (74-106) mg/dL Lactic Acid 1.2 (0.4-2.0) mmol/L Calcium (8.5-10.1) mg/dL Phosphorus 2.9 (2.6-4.7) mg/dL Total Bilirubin (0.2-1.0) mg/dL AST (15-37) IU/L ALT (14-63) IU/L Alkaline Phosphatase (46-116) U/L Creatine Kinase 127 (26-308) U/L Total Protein (6.4-8.2) g/dL Albumin (3.4-5.0) g/dL Globulin (2.6-4.0) g/dL Albumin/Globulin Ratio (0.9-1.6) Lipase (73-393) U/L Urine Color Urine Appearance Urine pH (5.0-8.0) Ur Specific [place] (1.001-1.035) Urine Protein (NEGATIVE) mg/dL Urine Glucose (UA) (NEGATIVE) mg/dL Urine Ketones (NEGATIVE) mg/dL Urine Occult Blood (NEGATIVE) Urine Nitrite (NEGATIVE) Urine Bilirubin (NEGATIVE) Urine Ictotest Urine Urobilinogen (<2.0) EU/dL Ur Leukocyte Esterase (NEGATIVE) Urine RBC (0-2/HPF) Urine WBC (0-5/HPF) Ur Epithelial Cells (NONE-FEW) Urine Bacteria (NEGATIVE) Urine Mucus (NONE-MOD) Influenza Type A RNA NEGATIVE (NEGATIVE) Influenza Type B RNA NEGATIVE (NEGATIVE) SARS-CoV-2 RNA (RODERICK) NEGATIVE (NEGATIVE) 03/10/21 03/10/21 Range/Units 06:10 06:10 WBC 12.40 H (4.0-11.0) K/uL RBC 4.63 (4.50-5.90) M/uL Hgb 13.9 (13.0-17.0) g/dL Hct 40.2 (38.0-50.0) % MCV 86.8 (80.0-98.0) fL MCH 30.0 (27.0-32.0) pg MCHC 34.6 (31.0-37.0) g/dL RDW Std Deviation 41.6 (28.0-62.0) fl RDW Coeff of Debbie 13 (11.0-15.0) % Plt Count 295 (150-400) K/uL MPV 11.20 (7.40-12.00) fL Neut % (Auto) 58.3 (48.0-80.0) % Lymph % (Auto) 27.0 (16.0-40.0) % [place] % (Auto) 13.7 (0.0-15.0) % Eos % (Auto) 0.7 (0.0-7.0) % Baso % (Auto) 0.3 (0.0-1.5) % Neut # (Auto) 7.2 H (1.4-5.7) K/uL Lymph # (Auto) 3.4 H (0.6-2.4) K/uL [place] # (Auto) 1.7 H (0.0-0.8) K/uL Eos # (Auto) 0.1 (0.0-0.7) K/uL Baso # (Auto) 0.0 (0.0-0.1) K/uL Nucleated RBC % 0.0 /100WBC Nucleated RBCs # 0 K/uL Sodium 138 (136-148) mmol/L Potassium 3.6 (3.5-5.1) mmol/L Chloride 104 (98-107) mmol/L Carbon Dioxide 20.7 L (21.0-32.0) mmol/L BUN 7 (7.0-18.0) mg/dL Creatinine 0.9 (0.8-1.3) mg/dL Est Cr Clr Drug Dosing 135.96 mL/min Estimated GFR (MDRD) > 60.0 ml/min Glucose 79 (74-106) mg/dL Lactic Acid (0.4-2.0) mmol/L Calcium 8.2 L (8.5-10.1) mg/dL Phosphorus (2.6-4.7) mg/dL Total Bilirubin (0.2-1.0) mg/dL AST (15-37) IU/L ALT (14-63) IU/L Alkaline Phosphatase (46-116) U/L Creatine Kinase (26-308) U/L Total Protein (6.4-8.2) g/dL Albumin (3.4-5.0) g/dL Globulin (2.6-4.0) g/dL Albumin/Globulin Ratio (0.9-1.6) Lipase (73-393) U/L Urine Color Urine Appearance Urine pH (5.0-8.0) Ur Specific [place] (1.001-1.035) Urine Protein (NEGATIVE) mg/dL Urine Glucose (UA) (NEGATIVE) mg/dL Urine Ketones (NEGATIVE) mg/dL Urine Occult Blood (NEGATIVE) Urine Nitrite (NEGATIVE) Urine Bilirubin (NEGATIVE) Urine Ictotest Urine Urobilinogen (<2.0) EU/dL Ur Leukocyte Esterase (NEGATIVE) Urine RBC (0-2/HPF) Urine WBC (0-5/HPF) Ur Epithelial Cells (NONE-FEW) Urine Bacteria (NEGATIVE) Urine Mucus (NONE-MOD) Influenza Type A RNA (NEGATIVE) Influenza Type B RNA (NEGATIVE) SARS-CoV-2 RNA (RODERICK) (NEGATIVE) Med Orders - Current: Current Medications Enoxaparin Sodium (Enoxaparin 40 Mg/0.4 Ml Syringe) 40 mg SUBCUT Q24H [facility] Last Admin: 03/09/21 22:51 Dose: 40 mg Documented by: Azithromycin 500 mg/ Sodium (Chloride) 250 mls @ 250 mls/hr IV Q24H [facility] Piperacillin Sod/Tazobactam (Sod 3.375 gm/ Sodium Chloride) 50 mls @ 100 mls/hr IV Q6H [facility] Last Admin: 03/10/21 06:29 Dose: 100 mls/hr Documented by: Ondansetron HCl (Ondansetron 4 Mg/2 Ml Sdv) 4 mg IVPUSH Q4H PRN PRN Reason: Nausea Last Admin: 03/10/21 01:03 Dose: 4 mg Documented by: Discontinued Medications Hydromorphone HCl (Hydromorphone 2 Mg/Ml Syringe) 0.5 mg IVPUSH ONETIME ONE Stop: 03/09/21 15:56 Last Admin: 03/09/21 16:17 Dose: 0.5 mg Documented by: Hydromorphone HCl (Hydromorphone 2 Mg/Ml Syringe) 0.5 mg IVPUSH ONETIME ONE Stop: 03/09/21 19:22 Last Admin: 03/09/21 19:26 Dose: 0.5 mg Documented by: Sodium Chloride (Normal Saline) 1,000 mls @ 999 mls/hr IV BOLUS ONE Stop: 03/09/21 16:55 Last Admin: 03/09/21 16:17 Dose: 999 mls/hr Documented by: Sodium Chloride (Normal Saline) 1,000 mls @ 999 mls/hr IV STAT ONE Stop: 03/09/21 17:43 Last Admin: 03/09/21 16:57 Dose: 999 mls/hr Documented by: Azithromycin 500 mg/ Sodium (Chloride) 250 mls @ 250 mls/hr IV ONETIME [facility] Azithromycin 500 mg/ Sodium (Chloride) 250 mls @ 250 mls/hr IV ONETIME [facility] Last Admin: 03/09/21 19:18 Dose: 250 mls/hr Documented by: Piperacillin Sod/Tazobactam (Sod 3.375 gm/ Sodium Chloride) 50 mls @ 100 mls/hr IV ONETIME ONE Stop: 03/09/21 20:00 Last Admin: 03/09/21 19:42 Dose: 100 mls/hr Documented by: Sodium Chloride (Normal Saline) 1,000 mls @ 999 mls/hr IV STAT ONE Stop: 03/09/21 20:51 Last Admin: 03/09/21 20:17 Dose: 999 mls/hr Documented by: Ketorolac Tromethamine (Ketorolac 30 Mg/Ml Sdv) 30 mg IVPUSH ONETIME ONE Stop: 03/09/21 15:56 Last Admin: 03/09/21 16:17 Dose: 30 mg Documented by: Ondansetron HCl (Ondansetron 4 Mg/2 Ml Sdv) 4 mg IVPUSH ONETIME ONE Stop: 03/09/21 15:56 Last Admin: 03/09/21 16:17 Dose: 4 mg Documented by: Ondansetron HCl (Ondansetron 4 Mg/2 Ml Sdv) 4 mg IVPUSH ONETIME ONE Stop: 03/09/21 19:22 Last Admin: 03/09/21 19:26 Dose: 4 mg Documented by: - Exam General: Alert, Oriented, Cooperative, No Acute Distress HEENT: EOMI, Other (Posterior oropharynx: Erythematous. No exudates.) Neck: Supple Lungs: Clear to Auscultation, Normal Respiratory Effort. No: Crackles Cardiovascular: Regular Rate, Regular Rhythm, No Murmurs GI/Abdominal Exam: Normal Bowel Sounds, Soft, Non-Tender, No Distention Extremities: Normal Inspection Skin: Warm, Dry, Intact. No: Rash Neurological: No New Focal Deficit - Patient Data Lab Results Last 24 hrs: Laboratory Results - last 24 hr 03/09/21 03/09/21 03/09/21 Range/Units 15:40 15:40 15:40 WBC 27.12 H (4.0-11.0) K/uL RBC 5.72 (4.50-5.90) M/uL Hgb 17.7 H (13.0-17.0) g/dL Hct 48.7 (38.0-50.0) % MCV 85.1 (80.0-98.0) fL MCH 30.9 (27.0-32.0) pg MCHC 36.3 (31.0-37.0) g/dL RDW Std Deviation 40.1 (28.0-62.0) fl RDW Coeff of Debbie 13 (11.0-15.0) % Plt Count 418 H (150-400) K/uL MPV 11.40 (7.40-12.00) fL Neut % (Auto) 88.4 H (48.0-80.0) % Lymph % (Auto) 7.1 L (16.0-40.0) % [place] % (Auto) 4.4 (0.0-15.0) % Eos % (Auto) 0.0 (0.0-7.0) % Baso % (Auto) 0.1 (0.0-1.5) % Neut # (Auto) 24.0 H (1.4-5.7) K/uL Lymph # (Auto) 1.9 (0.6-2.4) K/uL [place] # (Auto) 1.2 H (0.0-0.8) K/uL Eos # (Auto) 0.0 (0.0-0.7) K/uL Baso # (Auto) 0.0 (0.0-0.1) K/uL Nucleated RBC % 0.0 /100WBC Nucleated RBCs # 0 K/uL Sodium 135 L (136-148) mmol/L Potassium 3.9 (3.5-5.1) mmol/L Chloride 98 (98-107) mmol/L Carbon Dioxide 16.6 L (21.0-32.0) mmol/L BUN 12 (7.0-18.0) mg/dL Creatinine 1.0 (0.8-1.3) mg/dL Est Cr Clr Drug Dosing 122.36 mL/min Estimated GFR (MDRD) > 60.0 ml/min Glucose 98 (74-106) mg/dL Lactic Acid (0.4-2.0) mmol/L Calcium 9.4 (8.5-10.1) mg/dL Phosphorus (2.6-4.7) mg/dL Total Bilirubin 0.9 (0.2-1.0) mg/dL AST 17 (15-37) IU/L ALT 23 (14-63) IU/L Alkaline Phosphatase 131 H (46-116) U/L Creatine Kinase (26-308) U/L Total Protein 9.1 H (6.4-8.2) g/dL Albumin 4.9 (3.4-5.0) g/dL Globulin 4.2 H (2.6-4.0) g/dL Albumin/Globulin Ratio 1.2 (0.9-1.6) Lipase 60 L (73-393) U/L Urine Color YELLOW Urine Appearance CLEAR Urine pH 6.0 (5.0-8.0) Ur Specific [place] >= 1.030 (1.001-1.035) Urine Protein 30 H (NEGATIVE) mg/dL Urine Glucose (UA) NEGATIVE (NEGATIVE) mg/dL Urine Ketones >=80 (NEGATIVE) mg/dL Urine Occult Blood SMALL H (NEGATIVE) Urine Nitrite NEGATIVE (NEGATIVE) Urine Bilirubin SMALL H (NEGATIVE) Urine Ictotest NEGATIVE Urine Urobilinogen 0.2 (<2.0) EU/dL Ur Leukocyte Esterase NEGATIVE (NEGATIVE) Urine RBC 0-2 (0-2/HPF) Urine WBC 0-2 (0-5/HPF) Ur Epithelial Cells FEW (NONE-FEW) Urine Bacteria FEW (NEGATIVE) Urine Mucus LIGHT (NONE-MOD) Influenza Type A RNA (NEGATIVE) Influenza Type B RNA (NEGATIVE) SARS-CoV-2 RNA ([place]OD[place]) (NEGATIVE) 03/09/21 03/09/21 03/09/21 Range/Units 15:40 16:15 18:46 WBC (4.0-11.0) K/uL RBC (4.50-5.90) M/uL Hgb (13.0-17.0) g/dL Hct (38.0-50.0) % MCV (80.0-98.0) fL MCH (27.0-32.0) pg MCHC (31.0-37.0) g/dL RDW Std Deviation (28.0-62.0) fl RDW Coeff of Debbie (11.0-15.0) % Plt Count (150-400) K/uL MPV (7.40-12.00) fL Neut % (Auto) (48.0-80.0) % Lymph % (Auto) (16.0-40.0) % [place] % (Auto) (0.0-15.0) % Eos % (Auto) (0.0-7.0) % Baso % (Auto) (0.0-1.5) % Neut # (Auto) (1.4-5.7) K/uL Lymph # (Auto) (0.6-2.4) K/uL [place] # (Auto) (0.0-0.8) K/uL Eos # (Auto) (0.0-0.7) K/uL Baso # (Auto) (0.0-0.1) K/uL Nucleated RBC % /100WBC Nucleated RBCs # K/uL Sodium (136-148) mmol/L Potassium (3.5-5.1) mmol/L Chloride (98-107) mmol/L Carbon Dioxide (21.0-32.0) mmol/L BUN (7.0-18.0) mg/dL Creatinine (0.8-1.3) mg/dL Est Cr Clr Drug Dosing mL/min Estimated GFR (MDRD) ml/min Glucose (74-106) mg/dL Lactic Acid 1.2 (0.4-2.0) mmol/L Calcium (8.5-10.1) mg/dL Phosphorus 2.9 (2.6-4.7) mg/dL Total Bilirubin (0.2-1.0) mg/dL AST (15-37) IU/L ALT (14-63) IU/L Alkaline Phosphatase (46-116) U/L Creatine Kinase 127 (26-308) U/L Total Protein (6.4-8.2) g/dL Albumin (3.4-5.0) g/dL Globulin (2.6-4.0) g/dL Albumin/Globulin Ratio (0.9-1.6) Lipase (73-393) U/L Urine Color Urine Appearance Urine pH (5.0-8.0) Ur Specific [place] (1.001-1.035) Urine Protein (NEGATIVE) mg/dL Urine Glucose (UA) (NEGATIVE) mg/dL Urine Ketones (NEGATIVE) mg/dL Urine Occult Blood (NEGATIVE) Urine Nitrite (NEGATIVE) Urine Bilirubin (NEGATIVE) Urine Ictotest Urine Urobilinogen (<2.0) EU/dL Ur Leukocyte Esterase (NEGATIVE) Urine RBC (0-2/HPF) Urine WBC (0-5/HPF) Ur Epithelial Cells (NONE-FEW) Urine Bacteria (NEGATIVE) Urine Mucus (NONE-MOD) Influenza Type A RNA NEGATIVE (NEGATIVE) Influenza Type B RNA NEGATIVE (NEGATIVE) SARS-CoV-2 RNA (RODERICK) NEGATIVE (NEGATIVE) 03/10/21 03/10/21 Range/Units 06:10 06:10 WBC 12.40 H (4.0-11.0) K/uL RBC 4.63 (4.50-5.90) M/uL Hgb 13.9 (13.0-17.0) g/dL Hct 40.2 (38.0-50.0) % MCV 86.8 (80.0-98.0) fL MCH 30.0 (27.0-32.0) pg MCHC 34.6 (31.0-37.0) g/dL RDW Std Deviation 41.6 (28.0-62.0) fl RDW Coeff of Debbie 13 (11.0-15.0) % Plt Count 295 (150-400) K/uL MPV 11.20 (7.40-12.00) fL Neut % (Auto) 58.3 (48.0-80.0) % Lymph % (Auto) 27.0 (16.0-40.0) % [place] % (Auto) 13.7 (0.0-15.0) % Eos % (Auto) 0.7 (0.0-7.0) % Baso % (Auto) 0.3 (0.0-1.5) % Neut # (Auto) 7.2 H (1.4-5.7) K/uL Lymph # (Auto) 3.4 H (0.6-2.4) K/uL [place] # (Auto) 1.7 H (0.0-0.8) K/uL Eos # (Auto) 0.1 (0.0-0.7) K/uL Baso # (Auto) 0.0 (0.0-0.1) K/uL Nucleated RBC % 0.0 /100WBC Nucleated RBCs # 0 K/uL Sodium 138 (136-148) mmol/L Potassium 3.6 (3.5-5.1) mmol/L Chloride 104 (98-107) mmol/L Carbon Dioxide 20.7 L (21.0-32.0) mmol/L BUN 7 (7.0-18.0) mg/dL Creatinine 0.9 (0.8-1.3) mg/dL Est Cr Clr Drug Dosing 135.96 mL/min Estimated GFR (MDRD) > 60.0 ml/min Glucose 79 (74-106) mg/dL Lactic Acid (0.4-2.0) mmol/L Calcium 8.2 L (8.5-10.1) mg/dL Phosphorus (2.6-4.7) mg/dL Total Bilirubin (0.2-1.0) mg/dL AST (15-37) IU/L ALT (14-63) IU/L Alkaline Phosphatase (46-116) U/L Creatine Kinase (26-308) U/L Total Protein (6.4-8.2) g/dL Albumin (3.4-5.0) g/dL Globulin (2.6-4.0) g/dL Albumin/Globulin Ratio (0.9-1.6) Lipase (73-393) U/L Urine Color Urine Appearance Urine pH (5.0-8.0) Ur Specific [place] (1.001-1.035) Urine Protein (NEGATIVE) mg/dL Urine Glucose (UA) (NEGATIVE) mg/dL Urine Ketones (NEGATIVE) mg/dL Urine Occult Blood (NEGATIVE) Urine Nitrite (NEGATIVE) Urine Bilirubin (NEGATIVE) Urine Ictotest Urine Urobilinogen (<2.0) EU/dL Ur Leukocyte Esterase (NEGATIVE) Urine RBC (0-2/HPF) Urine WBC (0-5/HPF) Ur Epithelial Cells (NONE-FEW) Urine Bacteria (NEGATIVE) Urine Mucus (NONE-MOD) Influenza Type A RNA (NEGATIVE) Influenza Type B RNA (NEGATIVE) SARS-CoV-2 RNA (RODERICK) (NEGATIVE) Result Diagrams: 03/10/21 06:10 03/10/21 06:10 Sepsis Event Note - Evaluation Sepsis Screening Result: No Definite Risk - Focused Exam Vital Signs: Vital Signs Temp Pulse Resp BP BP Pulse Ox 03/10/21 07:00 97 F 102 H 16 124/79 98 03/10/21 03:48 98.5 F 86 122/57 L 96 03/10/21 01:28 99 F 102 H 141/74 H 97 - Problem List Review Problem List Initiated/Reviewed/Updated: Yes - Plan Plan:: 25-year-old male admitted for community-acquired pneumonia after failing outpatient antibiotics. Patient appears hydrated and is tolerating p.o. intake. Continue patient on azithromycin and Zosyn. Patient's WBC count is down trended to 12.4. Urinalysis was negative. DVT prophylaxis with Lovenox.
[2021-03-10] MEDS ORDERED: Azithromycin 500 MG in Sodium Chloride 0.9% 250 ML IV SCH (19:30)
[2021-03-10] MEDS: Enoxaparin 40 MG/0.4 ML Syringe SUBCUT SCH (21:31)
[2021-03-11] MEDS: Piperacillin/Tazobactam 3.375 GM in Sodium Chloride 0.9% 50 ML IV SCH ×2 (02:21→07:04)
[2021-03-11 07:29] VITALS: BP 125/65; PULSE 74
--- NOTE | 2021-03-11 12:01 | PCM.DCSUM1 ---
<Sukhi Crane - Last Filed: 03/11/21 12:22> Discharge Summary - Hospital Course Free Text/Narrative:: 25-year-old male presented to the ER on 03/09/2021 reporting 2 days of fever, chills, myalgias and productive cough. Patient was seen in the ED the day prior and treated with prednisone and azithromycin. After failing outpatient treatment patient return to the ER and was admitted for pneumonia. Patient was treated with azithromycin and Zosyn. Patient's WBC count was 27 on admission. On discharge patient's WBC count down trended to 8.47. Patient had productive cough with yellow sputum and this improved to clear sputum. Patient did complain of sore throat but did not show exudates. Patient's lungs were clear to auscultation and his clinical status improved. Patient is being discharged on Augmentin and azithromycin. - Discharge Data Discharge Date: 03/11/21 Discharge Disposition: Home, Self-Care 01 Condition: Stable - Referral to Home Health Primary Care Physician: Carol Martinez NP - Patient Instructions Diet: Usual Diet as Tolerated Notify Provider of: Fever, Increased Pain - Discharge Plan *PRESCRIPTION DRUG MONITORING PROGRAM REVIEWED*: Not Applicable *COPY OF PRESCRIPTION DRUG MONITORING REPORT IN PATIENT [place]: Not Applicable Prescriptions/Med Rec: Amoxicillin/Potassium Clav [Augmentin 875-125 Tablet] 1 each PO Q12HR 4 Days #8 tablet Azithromycin 500 mg PO DAILY 2 Days #2 tablet Home Medications: Home Meds Amoxicillin/Potassium Clav [Augmentin 875-125 Tablet] 1 each PO Q12HR 4 Days #8 tablet 03/11/21 [Rx] Azithromycin 500 mg PO DAILY 2 Days #2 tablet 03/11/21 [Rx] Patient Handouts: Amoxicillin; Clavulanic Acid Tablets, Azithromycin tablets, Community-Acquired Pneumonia, Adult, [id number] Referrals: Sukhi Crane MD [Resident] - 03/28/21 2:00 pm - Discharge Summary/Plan Comment DC Time >30 min.: Yes - General Info Admission Dx/Problem (Free Text: Admission Diagnosis/Problem Admission Diagnosis/Problem Pneumonia - Review of Systems General: Denies: Fever, Weakness, Chills HEENT: Reports: Sore Throat Pulmonary: Reports: Cough. Denies: Shortness of Breath, Pleuritic Chest Pain, Hemoptysis, Wheezing Cardiovascular: Reports: No Symptoms Gastrointestinal: Reports: No Symptoms Genitourinary: Reports: No Symptoms Musculoskeletal: Reports: No Symptoms Skin: Reports: No Symptoms Neurological: Reports: No Symptoms - Patient Data Vitals - Most Recent: Last Vital Signs Temp 97.9 F 03/11/21 07:25 Pulse 74 03/11/21 07:25 Resp 14 03/11/21 07:25 BP 125/65 03/11/21 07:25 Pulse Ox 97 03/11/21 07:25 Weight - Most Recent: 113.489 kg I&O - Last 24 hours: Intake & Output 03/10/21 03/11/21 03/11/21 22:59 06:59 14:59 Intake Total 1200 2120 Output Total 650 1300 Balance 550 820 Lab Results - Last 24 hrs: Laboratory Results - last 24 hr 03/11/21 Range/Units 07:59 WBC 8.47 (4.0-11.0) K/uL RBC 4.41 L (4.50-5.90) M/uL Hgb 13.4 (13.0-17.0) g/dL Hct 37.5 L (38.0-50.0) % MCV 85.0 (80.0-98.0) fL MCH 30.4 (27.0-32.0) pg MCHC 35.7 (31.0-37.0) g/dL RDW Std Deviation 39.2 (28.0-62.0) fl RDW Coeff of Debbie 13 (11.0-15.0) % Plt Count 241 (150-400) K/uL MPV 11.30 (7.40-12.00) fL Neut % (Auto) 47.0 L (48.0-80.0) % Lymph % (Auto) 38.6 (16.0-40.0) % Harney % (Auto) 12.6 (0.0-15.0) % Eos % (Auto) 1.3 (0.0-7.0) % Baso % (Auto) 0.5 (0.0-1.5) % Neut # (Auto) 4.0 (1.4-5.7) K/uL Lymph # (Auto) 3.3 H (0.6-2.4) K/uL Harney # (Auto) 1.1 H (0.0-0.8) K/uL Eos # (Auto) 0.1 (0.0-0.7) K/uL Baso # (Auto) 0.0 (0.0-0.1) K/uL Nucleated RBC % 0.0 /100WBC Nucleated RBCs # 0 K/uL MAURA Results - Last 24 hrs: Microbiology 03/09/21 15:40 Legionella Urinary Antigen - Final Urine 03/09/21 16:20 Aerobic Blood Culture - Preliminary Blood - Venous - Lab Draw NO GROWTH AFTER 1 DAY Anaerobic Blood Culture - Preliminary NO GROWTH AFTER 1 DAY 03/09/21 16:15 Aerobic Blood Culture - Preliminary Blood - Venous NO GROWTH AFTER 1 DAY Anaerobic Blood Culture - Preliminary NO GROWTH AFTER 1 DAY Med Orders - Current: Current Medications Enoxaparin Sodium (Enoxaparin 40 Mg/0.4 Ml Syringe) 40 mg SUBCUT Q24H [facility] Last Admin: 03/10/21 21:31 Dose: 40 mg Documented by: Azithromycin 500 mg/ Sodium (Chloride) 250 mls @ 250 mls/hr IV Q24H [facility] Last Admin: 03/10/21 21:31 Dose: 250 mls/hr Documented by: Piperacillin Sod/Tazobactam (Sod 3.375 gm/ Sodium Chloride) 50 mls @ 100 mls/hr IV Q6H [facility] Last Admin: 03/11/21 07:04 Dose: 100 mls/hr Documented by: Ondansetron HCl (Ondansetron 4 Mg/2 Ml Sdv) 4 mg IVPUSH Q4H PRN PRN Reason: Nausea Last Admin: 03/10/21 13:00 Dose: 4 mg Documented by: Discontinued Medications Hydromorphone HCl (Hydromorphone 2 Mg/Ml Syringe) 0.5 mg IVPUSH ONETIME ONE Stop: 03/09/21 15:56 Last Admin: 03/09/21 16:17 Dose: 0.5 mg Documented by: Hydromorphone HCl (Hydromorphone 2 Mg/Ml Syringe) 0.5 mg IVPUSH ONETIME ONE Stop: 03/09/21 19:22 Last Admin: 03/09/21 19:26 Dose: 0.5 mg Documented by: Sodium Chloride (Normal Saline) 1,000 mls @ 999 mls/hr IV BOLUS ONE Stop: 03/09/21 16:55 Last Admin: 03/09/21 16:17 Dose: 999 mls/hr Documented by: Sodium Chloride (Normal Saline) 1,000 mls @ 999 mls/hr IV STAT ONE Stop: 03/09/21 17:43 Last Admin: 03/09/21 16:57 Dose: 999 mls/hr Documented by: Azithromycin 500 mg/ Sodium (Chloride) 250 mls @ 250 mls/hr IV ONETIME [facility] Azithromycin 500 mg/ Sodium (Chloride) 250 mls @ 250 mls/hr IV ONETIME [facility] Last Admin: 03/09/21 19:18 Dose: 250 mls/hr Documented by: Piperacillin Sod/Tazobactam (Sod 3.375 gm/ Sodium Chloride) 50 mls @ 100 mls/hr IV ONETIME ONE Stop: 03/09/21 20:00 Last Admin: 03/09/21 19:42 Dose: 100 mls/hr Documented by: Sodium Chloride (Normal Saline) 1,000 mls @ 999 mls/hr IV STAT ONE Stop: 03/09/21 20:51 Last Admin: 03/09/21 20:17 Dose: 999 mls/hr Documented by: Ketorolac Tromethamine (Ketorolac 30 Mg/Ml Sdv) 30 mg IVPUSH ONETIME ONE Stop: 03/09/21 15:56 Last Admin: 03/09/21 16:17 Dose: 30 mg Documented by: Ondansetron HCl (Ondansetron 4 Mg/2 Ml Sdv) 4 mg IVPUSH ONETIME ONE Stop: 03/09/21 15:56 Last Admin: 03/09/21 16:17 Dose: 4 mg Documented by: Ondansetron HCl (Ondansetron 4 Mg/2 Ml Sdv) 4 mg IVPUSH ONETIME ONE Stop: 03/09/21 19:22 Last Admin: 03/09/21 19:26 Dose: 4 mg Documented by: - Exam General: Reports: Alert, Oriented, Cooperative Neck: Reports: Supple. Denies: Lymphadenopathy Lungs: Reports: Clear to Auscultation, Normal Respiratory Effort. Denies: Crackles, Rales, Rhonchi, Wheezing Cardiovascular: Reports: Regular Rate, Regular Rhythm, No Murmurs GI/Abdominal Exam: Normal Bowel Sounds, Soft, Non-Tender Extremities: Normal Inspection, Normal Range of Motion, No Pedal Edema Skin: Reports: Warm, Dry, Intact Neurological: Reports: No New Focal Deficit <Gigi Mcdonald Kanu - Last Filed: 03/12/21 19:40> Discharge Summary - Referral to [facility] Primary Care Physician: Carol Martinez NP - Discharge Diagnosis/Problem(s) (1) Sepsis SNOMED Code(s): 58100689 ICD Code: A41.9 - SEPSIS, UNSPECIFIED ORGANISM Status: Acute (2) Community acquired pneumonia SNOMED Code(s): 078226816 ICD Code: J18.9 - PNEUMONIA, UNSPECIFIED ORGANISM Status: Acute Qualifiers: Laterality: left Lung location: lower lobe of lung Qualified Code(s): J18.9 - Pneumonia, unspecified organism (3) Dehydration SNOMED Code(s): 46510033 ICD Code: E86.0 - DEHYDRATION Status: Acute (4) Leukocytosis SNOMED Code(s): 489721700, 144522914 ICD Code: D72.829 - ELEVATED WHITE BLOOD CELL COUNT, UNSPECIFIED Status: Acute Qualifiers: Leukocytosis type: unspecified Qualified Code(s): D72.829 - Elevated white blood cell count, unspecified (5) Nausea and vomiting SNOMED Code(s): 59769707 ICD Code: R11.2 - NAUSEA WITH VOMITING, UNSPECIFIED Status: Acute Qualifiers: Vomiting type: unspecified Vomiting Intractability: non-intractable Qualified Code(s): R11.2 - Nausea with vomiting, unspecified - Patient Data Vitals - Most Recent: Last Vital Signs Temp 36.6 C 03/11/21 07:25 Pulse 74 03/11/21 07:25 Resp 14 03/11/21 07:25 BP 125/65 03/11/21 07:25 Pulse Ox 97 03/11/21 07:25 [facility] Results - Last 24 hrs: Microbiology 03/09/21 16:20 Aerobic Blood Culture - Preliminary Blood - Venous - Lab Draw NO GROWTH AFTER 3 DAYS Anaerobic Blood Culture - Preliminary NO GROWTH AFTER 3 DAYS 03/09/21 16:15 Aerobic Blood Culture - Preliminary Blood - Venous NO GROWTH AFTER 3 DAYS Anaerobic Blood Culture - Preliminary NO GROWTH AFTER 3 DAYS Med Orders - Current: Current Medications Discontinued Medications Enoxaparin Sodium (Enoxaparin 40 Mg/0.4 Ml Syringe) 40 mg SUBCUT Q24H [facility] Last Admin: 03/10/21 21:31 Dose: 40 mg Documented by: Hydromorphone HCl (Hydromorphone 2 Mg/Ml Syringe) 0.5 mg IVPUSH ONETIME ONE Stop: 03/09/21 15:56 Last Admin: 03/09/21 16:17 Dose: 0.5 mg Documented by: Hydromorphone HCl (Hydromorphone 2 Mg/Ml Syringe) 0.5 mg IVPUSH ONETIME ONE Stop: 03/09/21 19:22 Last Admin: 03/09/21 19:26 Dose: 0.5 mg Documented by: Sodium Chloride (Normal Saline) 1,000 mls @ 999 mls/hr IV BOLUS ONE Stop: 03/09/21 16:55 Last Admin: 03/09/21 16:17 Dose: 999 mls/hr Documented by: Sodium Chloride (Normal Saline) 1,000 mls @ 999 mls/hr IV STAT ONE Stop: 03/09/21 17:43 Last Admin: 03/09/21 16:57 Dose: 999 mls/hr Documented by: Azithromycin 500 mg/ Sodium (Chloride) 250 mls @ 250 mls/hr IV ONETIME [facility] Azithromycin 500 mg/ Sodium (Chloride) 250 mls @ 250 mls/hr IV ONETIME [facility] Last Admin: 03/09/21 19:18 Dose: 250 mls/hr Documented by: Piperacillin Sod/Tazobactam (Sod 3.375 gm/ Sodium Chloride) 50 mls @ 100 mls/hr IV ONETIME ONE Stop: 03/09/21 20:00 Last Admin: 03/09/21 19:42 Dose: 100 mls/hr Documented by: Sodium Chloride (Normal Saline) 1,000 mls @ 999 mls/hr IV STAT ONE Stop: 03/09/21 20:51 Last Admin: 03/09/21 20:17 Dose: 999 mls/hr Documented by: Azithromycin 500 mg/ Sodium (Chloride) 250 mls @ 250 mls/hr IV Q24H [facility] Last Admin: 03/10/21 21:31 Dose: 250 mls/hr Documented by: Piperacillin Sod/Tazobactam (Sod 3.375 gm/ Sodium Chloride) 50 mls @ 100 mls/hr IV Q6H [facility] Last Admin: 03/11/21 07:04 Dose: 100 mls/hr Documented by: Ketorolac Tromethamine (Ketorolac 30 Mg/Ml Sdv) 30 mg IVPUSH ONETIME ONE Stop: 03/09/21 15:56 Last Admin: 03/09/21 16:17 Dose: 30 mg Documented by: Ondansetron HCl (Ondansetron 4 Mg/2 Ml Sdv) 4 mg IVPUSH ONETIME ONE Stop: 03/09/21 15:56 Last Admin: 03/09/21 16:17 Dose: 4 mg Documented by: Ondansetron HCl (Ondansetron 4 Mg/2 Ml Sdv) 4 mg IVPUSH ONETIME ONE Stop: 03/09/21 19:22 Last Admin: 03/09/21 19:26 Dose: 4 mg Documented by: Ondansetron HCl (Ondansetron 4 Mg/2 Ml Sdv) 4 mg IVPUSH Q4H PRN PRN Reason: Nausea Last Admin: 03/10/21 13:00 Dose: 4 mg Documented by: - Free Text/Narrative Note: I have seen and examined the patient with the resident. I have discussed findings and treatment plan with resident. I agree with the assessment and plan as outlined in the following note.
== END 2021-03-11 12:43 | disposition home or self-care (01) | DRG 720 ==
LOC: MW.ED 15:30 → MW.MS 19:52 → OBSVTOIN 21:45
PROVIDERS: ADMIT Internal Medicine; ATTEND Internal Medicine
DX: A41.9 Sepsis, unspecified organism (principal); J18.9 Pneumonia, unspecified organism; E86.0 Dehydration; H54.7 Unspecified visual loss; F31.9 Bipolar disorder, unspecified; J32.9 Chronic sinusitis, unspecified; F17.210 Nicotine dependence, cigarettes, uncomplicated; E87.1 Hypo-osmolality and hyponatremia; Z20.822 Contact with and (suspected) exposure to COVID-19
CPT/HCPCS: 0240U; 36415; 71046; 71046-26; 74177; 74177-26; 80048; 80053; 81001; 82550; 83605; 83690; 84100; 85025; 87040; 87899; 93005; 96365; 96366; 96368; 96375; 96376; 99285-25; J0456; J1170; J1650; J1885; J2405; J2543; J7030; J7050

== ENCOUNTER 2021-03-14 18:05 | Emergency (ER) | payer BC ==
[2021-03-14] MEDS ORDERED: Bacitracin Oint 1 GM U/D Packet TOP ONE (18:11)
[2021-03-14] MEDS ORDERED: Diphtheria,Pertussis(Acell),Tetanus Vaccine 0.5 ML Syringe IM ONE (18:11)
--- NOTE | 2021-03-14 18:17 | EDM.PDOCBH ---
ED HPI GENERAL MEDICAL PROBLEM - General Chief Complaint: Behavioral/Psych Stated Complaint: SUICIDLE Time Seen by Provider: 03/14/21 18:09 Source of Information: Reports: Patient History Limitations: Reports: No Limitations - History of Present Illness INITIAL COMMENTS - FREE TEXT/NARRATIVE: HISTORY AND PHYSICAL: History of present illness: Patient is a 25-year-old male who presents to the emergency room with complaints of suicidal ideation. He states he has thought about suicide "every day for as long as I can remember". Stating his first attempt was with a pill overdose when he was 17. He has not had any attempts since then. Today he got into a fight with his and "she knows how to push my buttons". He went into the bedroom and cut his left inner wrist, superficial x2. While he was thinking about cutting himself deeper he decided to call an ambulance for help. Upon arrival to the emergency room he is cooperative and answering questions appropriately. He states he takes medicinal marijuana for his depression. Patient denies any fever, chills, headache, change in vision, syncope or near syncope. Denies any chest pain, back pain, shortness of breath or cough. Denies any GI or symptoms. Denies any alcohol or drug abuse. Review of systems: As per history of present illness and below otherwise all systems reviewed and negative. Past medical history: As per history of present illness and as reviewed below otherwise noncontributory. Surgical history: As per history of present illness and as reviewed below otherwise noncontributory. Social history: See social history for further information Family history: As per history of present illness and as reviewed below otherwise noncontributory. Physical exam: General: Well developed and well nourished. Alert and orientated x 3. Nontoxic in appearance and in no acute distress. Vital signs are stable and have been reviewed by me. Nursing notes were reviewed. HEENT: Atraumatic, normocephalic, pupils equal and reactive bilaterally, negative for conjunctival pallor or scleral icterus, mucous membranes moist, TMs normal bilaterally, throat clear, neck supple, nontender, trachea midline. No drooling or trismus noted. No meningeal signs. No hot potato voice noted. Lungs: Clear to auscultation bilaterally. No wheezes, rales, or rhonchi. Chest nontender. Normal work of breathing, no accessory muscles used. Heart: S1S2, regular rate and rhythm without overt murmur, gallops, or rubs. No JVD. No peripheral edema Abdomen: Soft, nondistended, nontender. Normoactive bowel sounds. Negative for masses or costovertebral tenderness. Skin: 2 linear superficial scratches to inner left wrist. Otherwise skin is intact, warm, dry. No lesions or rashes noted. Hematologic: No petechiae or purpra. Mucosa appropriate color and normal nail bed color and refill. Extremities: Atraumatic, moves all extremities per self without difficulty or deficits, negative for cords or calf pain. Neurovascular unremarkable. Neuro: Awake, alert, oriented. Cranial nerves II through XII unremarkable. Cerebellum unremarkable. Motor and sensory unremarkable throughout. Exam nonfocal. Psychiatric: Mood and affect are appropriate. Normal thought process. Answering questions appropriately. Notes: *This patient was seen and evaluated during the 2019 SARS-CoV-2 novel coronavirus pandemic period. Community viral transmission is ongoing at time of this encounter and the emergency department is operating under pandemic response procedures. Patient is a 25-year-old male who presents to the emergency room with complaints of suicidal thoughts and attempt. He states he has had thoughts of suicide and history of depression since he was a teenager. Today he got into an argument with his and had superficially scratched his forearms. Patient states he realized he wanted help so he called the ambulance himself. Patient states he has never been admitted for suicidal ideation or depression. A few years ago he had taken an oral depression medication but feel it did not work for him. He now uses marijuana on a daily basis to help. We did discuss an emergency committal and what that would entail, he is agreeable and would like to move forward. Patient states that he had a pneumonia approximately a week ago, today's lab work is unremarkable with the exception of positive for marijuana. He says he has his medical marijuana card that he uses for depression. Chest x-ray shows no acute findings and no concern for pneumonia. I have talked with the patient about today's findings, in addition to providing specific details for plan of care. Reassessment at the time of disposition demonstrates that the patient is in no acute distress. Spoke with Dr Rios at [facility] in [place], who is agreeable to keeping this patient for further care. Will transfer patient via ground EMS. Dr Jim at [facility] was informed of patient transfer and agreeable. Diagnostics: CBC, CMP, UA, Drug Screen, ETOH, Acetaminophen, Salicylate, COVID Therapeutics: None Impression: Suicidal Ideation Plan: Transfer to [facility] [place] via ground EMS Definitive disposition and diagnosis as appropriate pending reevaluation and review of above. - Related Data Allergies Allergy/AdvReac Type Severity Reaction Status Date / Time No Known Allergies Allergy Verified 03/14/21 18:17 Home Meds: Home Meds Amoxicillin/Potassium Clav [Augmentin 875-125 Tablet] 1 each PO Q12HR 4 Days #8 tablet 03/11/21 [Rx] Azithromycin 500 mg PO DAILY 2 Days #2 tablet 03/11/21 [Rx] Past Medical History - Past Health History Medical/Surgical History: Denies Medical/Surgical History HEENT History: Reports: Impaired Vision, Sinusitis Other HEENT History: wears glasses Cardiovascular History: Reports: None Respiratory History: Reports: None, Other (See Below) Other Respiratory History: Had pneumonia 2020 Gastrointestinal History: Reports: None Genitourinary History: Reports: None Musculoskeletal History: Reports: None Neurological History: Reports: Concussion Other Neuro History: hx of motion sickness, concussion (2014) Psychiatric History: Reports: Anxiety, Bipolar, Depression, Other (See Below) Other Psychiatric History: dx at 12 yrs old with bipolar Endocrine/Metabolic History: Reports: None Hematologic History: Reports: None Immunologic History: Reports: None Oncologic (Cancer) History: Reports: None Dermatologic History: Reports: None - Infectious Disease History Infectious Disease History: Reports: None - Past Surgical History Head Surgeries/Procedures: Reports: None HEENT Surgical History: Reports: None Cardiovascular Surgical History: Reports: None Respiratory Surgical History: Reports: None GI Surgical History: Reports: None Male Surgical History: Reports: None Endocrine Surgical History: Reports: None Neurological Surgical History: Reports: None Musculoskeletal Surgical History: Reports: Other (See Below) Other Musculoskeletal Surgeries/Procedures:: R hand Oncologic Surgical History: Reports: None Dermatological Surgical History: Reports: None Social & Family History - Family History Family Medical History: No Pertinent Family History Oncologic: Reports: Lung, Other (See Below) Other Oncologic Family History: Paternal grandfather - Caffeine Use Caffeine Use: Reports: Coffee Caffeine Use Comment: 2-3 drinks /day ED ROS GENERAL - Review of Systems Review Of Systems: Comprehensive ROS is negative, except as noted in HPI. ED EXAM, BEHAVIORAL HEALTH - Physical Exam Exam: See Below (See dictation) COURSE, BEHAVIORAL HEALTH COMP - Course Vital Signs: Last Vital Signs Temp 97.5 F 03/14/21 18:10 Pulse 82 03/14/21 19:35 Resp 18 03/14/21 18:10 BP 130/99 H 03/14/21 19:35 Pulse Ox 96 03/14/21 19:35 Orders, Labs, Meds: Active Orders 24 hr Category Date Time Status Vaccines to be Administered [RC] PER UNIT ROUTINE Care 03/14/21 18:11 Active Laboratory Tests 03/14/21 03/14/21 03/14/21 Range/Units 18:25 18:25 18:48 WBC 10.13 (4.0-11.0) K/uL RBC 5.18 (4.50-5.90) M/uL Hgb 16.1 (13.0-17.0) g/dL Hct 43.6 (38.0-50.0) % MCV 84.2 (80.0-98.0) fL MCH 31.1 (27.0-32.0) pg MCHC 36.9 (31.0-37.0) g/dL RDW Std Deviation 38.6 (28.0-62.0) fl RDW Coeff of Debbie 13 (11.0-15.0) % Plt Count 298 (150-400) K/uL MPV 10.80 (7.40-12.00) fL Neut % (Auto) 66.0 (48.0-80.0) % Lymph % (Auto) 19.6 (16.0-40.0) % Greene % (Auto) 12.5 (0.0-15.0) % Eos % (Auto) 1.4 (0.0-7.0) % Baso % (Auto) 0.5 (0.0-1.5) % Neut # (Auto) 6.7 H (1.4-5.7) K/uL Lymph # (Auto) 2.0 (0.6-2.4) K/uL Greene # (Auto) 1.3 H (0.0-0.8) K/uL Eos # (Auto) 0.1 (0.0-0.7) K/uL Baso # (Auto) 0.1 (0.0-0.1) K/uL Nucleated RBC % 0.0 /100WBC Nucleated RBCs # 0 K/uL Sodium 139 (136-148) mmol/L Potassium 3.1 L (3.5-5.1) mmol/L Chloride 102 (98-107) mmol/L Carbon Dioxide 27.7 (21.0-32.0) mmol/L BUN 12 (7.0-18.0) mg/dL Creatinine 1.0 (0.8-1.3) mg/dL Est Cr Clr Drug Dosing 122.36 mL/min Estimated GFR (MDRD) > 60.0 ml/min Glucose 96 (74-106) mg/dL Calcium 8.7 (8.5-10.1) mg/dL Total Bilirubin 0.5 (0.2-1.0) mg/dL AST 17 (15-37) IU/L ALT 31 (14-63) IU/L Alkaline Phosphatase 108 (46-116) U/L Total Protein 7.9 (6.4-8.2) g/dL Albumin 4.1 (3.4-5.0) g/dL Globulin 3.8 (2.6-4.0) g/dL Albumin/Globulin Ratio 1.1 (0.9-1.6) Urine Color Urine Appearance Urine pH (5.0-8.0) Ur Specific Cedar (1.001-1.035) Urine Protein (NEGATIVE) mg/dL Urine Glucose (UA) (NEGATIVE) mg/dL Urine Ketones (NEGATIVE) mg/dL Urine Occult Blood (NEGATIVE) Urine Nitrite (NEGATIVE) Urine Bilirubin (NEGATIVE) Urine Ictotest Urine Urobilinogen (<2.0) EU/dL Ur Leukocyte Esterase (NEGATIVE) Urine RBC (0-2/HPF) Urine WBC (0-5/HPF) Ur Epithelial Cells (NONE-FEW) Urine Bacteria (NEGATIVE) Urine Mucus (NONE-MOD) Salicylates 0.8 (0-20) mg/dL Urine Opiates Screen NEGATIVE (NEGATIVE) Ur Oxycodone Screen NEGATIVE (NEGATIVE) Urine Methadone Screen NEGATIVE (NEGATIVE) Acetaminophen <2.0 ug/mL Ur Barbiturates Screen NEGATIVE (NEGATIVE) Ur Phencyclidine Scrn NEGATIVE (NEGATIVE) Ur Amphetamine Screen NEGATIVE (NEGATIVE) U Methamphetamines Scrn NEGATIVE (NEGATIVE) U Benzodiazepines Scrn NEGATIVE (NEGATIVE) U Cocaine Metab Screen NEGATIVE (NEGATIVE) U Marijuana (THC) Screen POSITIVE (NEGATIVE) Ethyl Alcohol <3 mg/dL SARS-CoV-2 RNA (RODERICK) (NEGATIVE) 03/14/21 03/14/21 Range/Units 18:48 18:50 WBC (4.0-11.0) K/uL RBC (4.50-5.90) M/uL Hgb (13.0-17.0) g/dL Hct (38.0-50.0) % MCV (80.0-98.0) fL MCH (27.0-32.0) pg MCHC (31.0-37.0) g/dL RDW Std Deviation (28.0-62.0) fl RDW Coeff of Debbie (11.0-15.0) % Plt Count (150-400) K/uL MPV (7.40-12.00) fL Neut % (Auto) (48.0-80.0) % Lymph % (Auto) (16.0-40.0) % Greene % (Auto) (0.0-15.0) % Eos % (Auto) (0.0-7.0) % Baso % (Auto) (0.0-1.5) % Neut # (Auto) (1.4-5.7) K/uL Lymph # (Auto) (0.6-2.4) K/uL Greene # (Auto) (0.0-0.8) K/uL Eos # (Auto) (0.0-0.7) K/uL Baso # (Auto) (0.0-0.1) K/uL Nucleated RBC % /100WBC Nucleated RBCs # K/uL Sodium (136-148) mmol/L Potassium (3.5-5.1) mmol/L Chloride (98-107) mmol/L Carbon Dioxide (21.0-32.0) mmol/L BUN (7.0-18.0) mg/dL Creatinine (0.8-1.3) mg/dL Est Cr Clr Drug Dosing mL/min Estimated GFR (MDRD) ml/min Glucose (74-106) mg/dL Calcium (8.5-10.1) mg/dL Total Bilirubin (0.2-1.0) mg/dL AST (15-37) IU/L ALT (14-63) IU/L Alkaline Phosphatase (46-116) U/L Total Protein (6.4-8.2) g/dL Albumin (3.4-5.0) g/dL Globulin (2.6-4.0) g/dL Albumin/Globulin Ratio (0.9-1.6) Urine Color YELLOW Urine Appearance CLEAR Urine pH 6.0 (5.0-8.0) Ur Specific Cedar 1.025 (1.001-1.035) Urine Protein NEGATIVE (NEGATIVE) mg/dL Urine Glucose (UA) NEGATIVE (NEGATIVE) mg/dL Urine Ketones 15 H (NEGATIVE) mg/dL Urine Occult Blood SMALL H (NEGATIVE) Urine Nitrite NEGATIVE (NEGATIVE) Urine Bilirubin SMALL H (NEGATIVE) Urine Ictotest NEGATIVE Urine Urobilinogen 1.0 (<2.0) EU/dL Ur Leukocyte Esterase NEGATIVE (NEGATIVE) Urine RBC 1-3 (0-2/HPF) Urine WBC 0-2 (0-5/HPF) Ur Epithelial Cells OCCASIONAL (NONE-FEW) Urine Bacteria FEW (NEGATIVE) Urine Mucus MODERATE (NONE-MOD) Salicylates (0-20) mg/dL Urine Opiates Screen (NEGATIVE) Ur Oxycodone Screen (NEGATIVE) Urine Methadone Screen (NEGATIVE) Acetaminophen ug/mL Ur Barbiturates Screen (NEGATIVE) Ur Phencyclidine Scrn (NEGATIVE) Ur Amphetamine Screen (NEGATIVE) U Methamphetamines Scrn (NEGATIVE) U Benzodiazepines Scrn (NEGATIVE) U Cocaine Metab Screen (NEGATIVE) U Marijuana (THC) Screen (NEGATIVE) Ethyl Alcohol mg/dL SARS-CoV-2 RNA (RODERICK) NEGATIVE (NEGATIVE) Medications Discontinued Medications Generic Name Dose Route Start Last Admin Trade Name Dmitryq PRN Reason Stop Dose Admin Bacitracin 1 dose 03/14/21 18:11 03/14/21 18:20 Bacitracin Oint 1 Gm U/D Packet TOP 03/14/21 18:12 1 dose ONETIME ONE Administration Diphtheria/Tetanus/Acell Pertussis 0.5 ml 03/14/21 18:11 03/14/21 18:20 Diphtheria,Pertussis(Acell),Tetanus Vaccine 0.5 Ml Syringe IM 03/14/21 18:12 0.5 ml .ONCE ONE Administration Potassium Chloride 40 meq 03/14/21 19:08 03/14/21 19:15 Potassium Chloride 20 Meq Tab.Er PO 03/14/21 19:09 40 meq ONETIME ONE Administration Departure - Departure Time of Disposition: 20:01 Disposition: DC/Tfer to Psych Hosp/Unit 65 Clinical Impression: Suicidal ideation - Discharge Information Referrals: PCP,None [Primary Care Provider] - Forms: ED Department Discharge Sepsis Event Note (ED) - Focused Exam Vital Signs: Vital Signs Temp Pulse Resp BP Pulse Ox 03/14/21 19:35 82 130/99 H 96 03/14/21 19:05 88 133/94 H 95 03/14/21 18:35 108 H 136/94 H 95 03/14/21 18:10 97.5 F 116 H 18 146/107 H 97 - My Orders Last 24 Hours: My Active Orders 03/14/21 18:11 Vaccines to be Administered [RC] PER UNIT ROUTINE - Assessment/Plan Last 24 Hours: My Active Orders 03/14/21 18:11 Vaccines to be Administered [RC] PER UNIT ROUTINE
[2021-03-14 18:53] LABS: ACETAMINOPHEN <2.0 ug/mL; BLOOD UREA NITROGEN,BUN 12 mg/dL (7.0-18.0); CARBON DIOXIDE,CO2 27.7 mmol/L (21.0-32.0); CHLORIDE,CL 102 mmol/L (98-107); GLUCOSE RANDOM 96 mg/dL (74-106); POTASSIUM,K 3.1 mmol/L (3.5-5.1); SODIUM,NA 139 mmol/L (136-148)
[2021-03-14] MEDS ORDERED: Potassium Chloride 20 MEQ Tab.ER PO ONE (19:08)
--- NOTE | 2021-03-14 19:22 | CR ---
INDICATION: pain/short of breath CHEST, ONE VIEW An AP radiograph of the chest was performed. Comparison: 03/09/2021. The lungs appear clear and no pleural effusions are identified. The cardiomediastinal silhouette and pulmonary vasculature appear normal, as do the visualized bones. IMPRESSION: No acute intrathoracic abnormality identified. KATHLEEN BURNETT MD [facility] Dictated by: Iglesia Burnett MD @ 03/14/2021 19:21:42 (Electronically Signed)
[2021-03-14] MEDS ORDERED: Ketorolac 60 MG/2 ML SDV IM ONE (21:11)
[2021-03-15 03:08] VITALS: BP 122/80; PULSE 83
== END 2021-03-15 03:24 ==
LOC: MW.ED 18:05
DX: R45.851 Suicidal ideations (principal); Z23 Encounter for immunization; Z20.822 Contact with and (suspected) exposure to COVID-19
CPT/HCPCS: 36415; 71045; 80053; 80143; 80179; 80305; 80307; 81001; 85025; 87635; 90471; 90715; 96372; 99285; A9270; J1885; U0002

== ENCOUNTER 2021-07-17 10:23 | Emergency (ER) | payer BC ==
[2021-07-17] MEDS ORDERED: Codeine/guaiFENesin 10-100 MG/5 ML Syrup 5 ML Cup PO ONE (10:55)
[2021-07-17] MEDS ORDERED: Ketorolac 60 MG/2 ML SDV IM ONE (10:55)
--- NOTE | 2021-07-17 11:12 | EDM.PDOC ---
ED HPI GENERAL MEDICAL PROBLEM - General Chief Complaint: Respiratory Problem Stated Complaint: COUGH,SOB Time Seen by Provider: 07/17/21 10:24 Source of Information: Reports: Patient History Limitations: Reports: No Limitations - History of Present Illness INITIAL COMMENTS - FREE TEXT/NARRATIVE: HISTORY AND PHYSICAL: History of present illness: Patient is a 24-year-old male, with a prior history of bacterial pneumonia requiring hospitalization, who presents emergency room today with concern of cough and generalized body aches starting last night and worsening this morning. Patient states that he is going into "coughing attacks "what makes him feel short of breath and states that he was concerned he possibly had COVID-19. Patient states given his history, he is also concerned that potentially he has developed a pneumonia so came here to the emergency room for further evaluation. Patient denies fever, chills, chest pain. Denies headache, neck stiff ness, change in vision, syncope, or near syncope. Denies nausea, vomiting, abdominal pain, diarrhea, constipation, or dysuria. Has not noted any blood in urine or stool. Patient has been eating and drinking appropriately. Review of systems: As per history of present illness and below otherwise all systems reviewed and negative. Past medical history: As per history of present illness and as reviewed below otherwise noncontributory. Surgical history: As per history of present illness and as reviewed below otherwise noncontributory. Social history: See social history for further information Family history: As per history of present illness and as reviewed below otherwise noncontributory. Physical exam: General: Patient is alert, oriented, and in no acute distress. Patient sitting comfortably on exam table. Vitals stable and reviewed by me. HEENT: Atraumatic, normocephalic, pupils equal and reactive bilaterally, negative for conjunctival pallor or scleral icterus, mucous membranes moist, throat clear, neck supple, nontender, trachea midline. No drooling or trismus noted. No meningeal signs. No hot potato voice noted. Lungs: Dry spasmatic cough on exam. Otherwise, clear to auscultation, breath sounds equal bilaterally, chest nontender. Heart: S1S2, regular rate and rhythm without overt murmur Abdomen: Soft, nondistended, nontender. Negative for masses or hepatosplenomegaly. Negative for costovertebral tenderness. Pelvis: Stable nontender. Genitourinary: Deferred. Rectal: Deferred. Skin: Intact, warm, dry. No lesions or rashes noted. Extremities: Atraumatic, negative for cords or calf pain. Neurovascular unremarkable. Neuro: Awake, alert, oriented. Cranial nerves II through XII unremarkable. Cerebellum unremarkable. Motor and sensory unremarkable throughout. Exam nonfocal. Medical Decision Making: Patient is a 25-year-old male, with prior history of bacterial pneumonia requiring hospitalization, who presents emergency room today with concern of viral syndrome starting last night. Upon arrival to the ED, patient is vitally stable and well-appearing on exam. He does have periodic dry spasmatic coughing, otherwise exam is unremarkable. Will obtain EKG, two-view chest x-ray given his medical history, and Covid/influenza testing and reassess patient. See Dr. Aleman's dictation for specific EKG interpretation. Otherwise, NSR without STEMI. Covid and influenza negative. Chest x-ray two-view unremarkable. Upon reevaluation of patient, he does have improvement of his symptoms with therapeutics given today in the emergency room. All signs and symptoms that were prompt return to the ED thoroughly discussed with patient. Discussed importance for follow-up with a primary care provider. Voices understanding and is agreeable to plan of care. Denies any further que stions or concerns at this time. Diagnostics: Covid/flu, EKG, chest x-ray 2 view Therapeutics: Nebulized lidocaine, Robitussin, Toradol Prescription: None Impression: Viral syndrome Plan: 1. You can alternate ibuprofen and Tylenol as directed for pain discomfort. 2. Follow-up with a primary care provider as discussed. Return to the ED as needed and as discussed. Definitive disposition and diagnosis as appropriate pending reevaluation and review of above. - Related Data Allergies Allergy/AdvReac Type Severity Reaction Status Date / Time No Known Allergies Allergy Verified 07/17/21 10:49 Home Meds: Home Meds . [No Known Home Meds] 07/17/21 [History] Past Medical History - Past Health History Medical/Surgical History: Denies Medical/Surgical History HEENT History: Reports: Impaired Vision, Sinusitis Other HEENT History: wears glasses Cardiovascular History: Reports: None Respiratory History: Reports: None, Other (See Below) Other Respiratory History: Had pneumonia 2020 Gastrointestinal History: Reports: None Genitourinary History: Reports: None Musculoskeletal History: Reports: None Neurological History: Reports: Concussion Other Neuro History: hx of motion sickness, concussion (2015) Psychiatric History: Reports: Anxiety, Bipolar, Depression, Other (See Below) Other Psychiatric History: dx at 12 yrs old with bipolar Endocrine/Metabolic History: Reports: None Insulin Pump Model and Kinesiologist: None Hematologic History: Reports: None Immunologic History: Reports: None Oncologic (Cancer) History: Reports: None Dermatologic History: Reports: None - Infectious Disease History Infectious Disease History: Reports: None - Past Surgical History Head Surgeries/Procedures: Reports: None HEENT Surgical History: Reports: None Other HEENT Surgeries/Procedures: molars removed Cardiovascular Surgical History: Reports: None Respiratory Surgical History: Reports: None GI Surgical History: Reports: None Male Surgical History: Reports: None Endocrine Surgical History: Reports: None Neurological Surgical History: Reports: None Musculoskeletal Surgical History: Reports: Other (See Below) Other Musculoskeletal Surgeries/Procedures:: R hand Oncologic Surgical History: Reports: None Dermatological Surgical History: Reports: None Social & Family History - Family History Family Medical History: No Pertinent Family History Oncologic: Reports: Lung, Other (See Below) Other Oncologic Family History: Paternal grandfather - Tobacco Use Second Hand Smoke Exposure: No - Caffeine Use Caffeine Use: Reports: None Caffeine Use Comment: 2-3 drinks /day - Recreational Drug Use Recreational Drug Use: No ED ROS GENERAL - Review of Systems Review Of Systems: Comprehensive ROS is negative, except as noted in HPI. ED EXAM, GENERAL - Physical Exam Exam: See Below (see dictation) Course - Vital Signs Last Recorded V/S: Last Vital Signs Temp 97.2 F 07/17/21 10:46 Pulse 82 07/17/21 10:46 Resp 20 07/17/21 10:46 BP 127/72 07/17/21 10:46 Pulse Ox 97 07/17/21 10:46 - Orders/Labs/Meds Labs: Laboratory Tests 07/17/21 Range/Units 10:40 Influenza Type A RNA NEGATIVE (NEGATIVE) Influenza Type B RNA NEGATIVE (NEGATIVE) SARS-CoV-2 RNA (RODERICK) NEGATIVE (NEGATIVE) Meds: Medications Discontinued Medications Generic Name Dose Route Start Last Admin Trade Name Freq PRN Reason Stop Dose Admin Guaifenesin/Codeine Phosphate 5 ml 07/17/21 10:55 07/17/21 11:17 Codeine/Guaifenesin 10-100 Mg/5 Ml Syrup 5 Ml Cup PO 07/17/21 10:56 5 ml ONETIME ONE Administration Ketorolac Tromethamine 60 mg 07/17/21 10:55 07/17/21 11:17 Ketorolac 60 Mg/2 Ml Sdv IM 07/17/21 10:56 60 mg ONETIME ONE Administration Lidocaine HCl 5 ml 07/17/21 10:55 07/17/21 11:38 Lidocaine 1% 5 Ml Sdv .XX 07/17/21 10:56 5 ml ONETIME ONE Administration Departure - Departure Time of Disposition: : Disposition: Home, Self-Care 01 Clinical Impression: Viral syndrome - Discharge Information Instructions: Viral Illness, Adult Referrals: PCP,None [Primary Care Provider] - Forms: ED Department Discharge Additional Instructions: The following information is given to patients seen in the emergency department who are being discharged to home. This information is to outline your options for follow-up care. We provide all patients seen in our emergency department with a follow-up referral. The need for follow-up, as well as the timing and circumstances, are variable d epending upon the specifics of your emergency department visit. If you don't have a primary care physician on staff, we will provide you with a referral. We always advise you to contact your personal physician following an emergency department visit to inform them of the circumstance of the visit and for follow-up with them and/or the need for any referrals to a consulting specialist. The emergency department will also refer you to a specialist when appropriate. This referral assures that you have the opportunity for follow-up care with a specialist. All of these measure are taken in an effort to provide you with optimal care, which includes your follow-up. Under all circumstances we always encourage you to contact your private physician who remains a resource for coordinating your care. When calling for follow-up care, please make the office aware that this follow-up is from your recent emergency room visit. If for any reason you are refused follow-up, please contact the [facility] Emergency Department at and asked to speak to the emergency department charge nurse. [facility] [address] [place] [address] [facility] [address] [place] [address] 1. You can alternate ibuprofen and Tylenol as directed for pain discomfort. 2. Follow-up with a primary care provider as discussed. Return to the ED as needed and as discussed. Sepsis Event Note (ED) - Evaluation Sepsis Screening Result: No Definite Risk - Focused Exam Vital Signs: Vital Signs Temp Pulse Resp BP Pulse Ox 07/17/21 10:46 97.2 F 82 20 127/72 97
--- NOTE | 2021-07-17 11:26 | PCM.EKG ---
#1 Interpretation EKG Date: 07/17/21 Time: 11:20 Rhythm: NSR Rate (Beats/Min): 74 ST-T: Normal
[2021-07-17 11:34] LABS: CORONAVIRUS COVID-19 NAA NEGATIVE (NEGATIVE); INFLUENZA A NAA NEGATIVE (NEGATIVE); INFLUENZA B NAA NEGATIVE (NEGATIVE)
--- NOTE | 2021-07-17 12:07 | CR ---
INDICATION: Cough with history of pneumonia. TECHNIQUE: Chest 2 views. COMPARISON: Chest radiograph 03/14/2021. FINDINGS: No focal consolidation, pleural effusion, or pneumothorax. Normal heart size and pulmonary vascularity. The bones are unremarkable. IMPRESSION: No acute cardiopulmonary findings. Dictated by Carlee Emmanuel MD @ 07/17/2021 12:06:10 PM (Electronically Signed)
[2021-07-17 17:13] VITALS: BP 116/78; PULSE 79
== END 2021-07-17 12:00 | disposition home or self-care (01) ==
LOC: MW.ED 10:23
DX: B34.9 Viral infection, unspecified (principal); Z20.822 Contact with and (suspected) exposure to COVID-19
CPT/HCPCS: 0240U; 71046; 93005; 96372; 99284; A9270; J1885

== ENCOUNTER 2021-08-16 15:37 | Emergency (ER) | payer BC ==
[2021-08-16] MEDS ORDERED: Ondansetron 4 MG/2 ML SDV IVPUSH ONE (16:23)
[2021-08-16] MEDS ORDERED: Sodium Chloride 0.9% 1,000 ML IV ONE (16:23)
[2021-08-16] MEDS ORDERED: Morphine 4 MG/ML VIAL IVPUSH ONE (16:23)
--- NOTE | 2021-08-16 16:26 | EDM.PDOC ---
ED HPI GENERAL MEDICAL PROBLEM - General Chief Complaint: Abdominal Pain Stated Complaint: FRONT LEFT ABDOMINAL PAIN AND POOPING BLOOD X2 DAY Time Seen by Provider: 08/16/21 15:38 Source of Information: Reports: Patient History Limitations: Reports: No Limitations - History of Present Illness INITIAL COMMENTS - FREE TEXT/NARRATIVE: 25-year-old male past medical history pneumonia requiring hospitalization, no past surgical history presents for left lower quadrant abdominal pain associated with bloody stool. Patient states that symptoms started about 2 days ago with some mild left lower quadrant abdominal cramping pains. He has been having looser stools but denies jacque diarrhea. Denies nausea or vomiting. Denies hematuria or dysuria. Over the today pain has been worsening. He describes it as a fire-like pain. It is worse with certain movements and with palpation of the abdomen. He also noticed today some bright red blood when wiping. He denies any history of inflammatory bowel disease or family history of colon cancer. Abdominal Pain Score (Numeric/FACES): 8 - Related Data Allergies Allergy/AdvReac Type Severity Reaction Status Date / Time No Known Allergies Allergy Verified 08/16/21 16:18 Home Meds: Home Meds . [No Known Home Meds] 07/17/21 [History] Past Medical History - Past Health History Medical/Surgical History: Denies Medical/Surgical History HEENT History: Reports: Impaired Vision, Sinusitis Other HEENT History: wears glasses Cardiovascular History: Reports: None Respiratory History: Reports: None, Other (See Below) Other Respiratory History: Had pneumonia 2020 Gastrointestinal History: Reports: None Genitourinary History: Reports: None Musculoskeletal History: Reports: None Neurological History: Reports: Concussion Other Neuro History: hx of motion sickness, concussion (2014) Psychiatric History: Reports: Anxiety, Bipolar, Depression, Other (See Below) Other Psychiatric History: dx at 12 yrs old with bipolar Endocrine/Metabolic History: Reports: None Insulin Pump Model and Chief Strategy Officer: None Hematologic History: Reports: None Immunologic History: Reports: None Oncologic (Cancer) History: Reports: None Dermatologic History: Reports: None - Infectious Disease History Infectious Disease History: Reports: None - Past Surgical History Head Surgeries/Procedures: Reports: None HEENT Surgical History: Reports: None Other HEENT Surgeries/Procedures: molars removed Cardiovascular Surgical History: Reports: None Respiratory Surgical History: Reports: None GI Surgical History: Reports: None Male Surgical History: Reports: None Endocrine Surgical History: Reports: None Neurological Surgical History: Reports: None Musculoskeletal Surgical History: Reports: Other (See Below) Other Musculoskeletal Surgeries/Procedures:: R hand Oncologic Surgical History: Reports: None Dermatological Surgical History: Reports: None Social & Family History - Family History Family Medical History: No Pertinent Family History Oncologic: Reports: Lung, Other (See Below) Other Oncologic Family History: Paternal grandfather - Tobacco Use Second Hand Smoke Exposure: No - Caffeine Use Caffeine Use: Reports: None Caffeine Use Comment: 2-3 drinks /day - Recreational Drug Use Recreational Drug Use: No ED ROS GENERAL - Review of Systems Review Of Systems: Comprehensive ROS is negative, except as noted in HPI. ED EXAM, GENERAL - Physical Exam Exam: See Below Exam Limited By: No Limitations General Appearance: Alert, WD/WN, No Apparent Distress Ears: Hearing Grossly Normal Throat/Mouth: Normal Voice, No Airway Compromise Head: Atraumatic, Normocephalic Respiratory/Chest: No Respiratory Distress, Lungs Clear, Normal Breath Sounds, No Accessory Muscle Use Cardiovascular: Normal Peripheral Pulses, Regular Rate, Rhythm GI/Abdominal: Soft, Other (Left lower quadrant tenderness to palpation with guarding) Back Exam: Other (Mild left CVA tenderness to palpation, subjective). No: CVA Tenderness (R) Extremities: Normal Inspection Neurological: Alert, Normal Cognition, Normal Gait Psychiatric: Normal Affect, Normal Mood Skin Exam: Warm, Dry, Intact, Normal Color Course - Vital Signs Last Recorded V/S: Last Vital Signs Temp 98 F 08/16/21 16:15 Pulse 83 08/16/21 16:15 Resp 20 08/16/21 16:15 BP 111/81 08/16/21 16:15 Pulse Ox 98 08/16/21 16:15 - Orders/Labs/Meds Orders: Active Orders 24 hr Category Date Time Status Saline Lock Insert [OM.PC] Stat Oth 08/16/21 16:23 Ordered Labs: Laboratory Tests 08/16/21 08/16/21 08/16/21 Range/Units 16:40 16:40 16:40 WBC 7.76 (4.0-11.0) K/uL RBC 4.74 (4.50-5.90) M/uL Hgb 14.6 (13.0-17.0) g/dL Hct 42.2 (38.0-50.0) % MCV 89.0 (80.0-98.0) fL MCH 30.8 (27.0-32.0) pg MCHC 34.6 (31.0-37.0) g/dL RDW Std Deviation 44.0 (28.0-62.0) fl RDW Coeff of Debbie 14 (11.0-15.0) % Plt Count 280 (150-400) K/uL MPV 11.50 (7.40-12.00) fL Neut % (Auto) 58.0 (48.0-80.0) % Lymph % (Auto) 29.8 (16.0-40.0) % Dickey % (Auto) 11.2 (0.0-15.0) % Eos % (Auto) 0.6 (0.0-7.0) % Baso % (Auto) 0.4 (0.0-1.5) % Neut # (Auto) 4.5 (1.4-5.7) K/uL Lymph # (Auto) 2.3 (0.6-2.4) K/uL Dickey # (Auto) 0.9 H (0.0-0.8) K/uL Eos # (Auto) 0.1 (0.0-0.7) K/uL Baso # (Auto) 0.0 (0.0-0.1) K/uL Nucleated RBC % 0.0 /100WBC Nucleated RBCs # 0 K/uL Sodium 141 (136-148) mmol/L Potassium 4.1 (3.5-5.1) mmol/L Chloride 107 (98-107) mmol/L Carbon Dioxide 22.8 (21.0-32.0) mmol/L BUN 10 (7.0-18.0) mg/dL Creatinine 0.7 L (0.8-1.3) mg/dL Est Cr Clr Drug Dosing 174.80 mL/min Estimated GFR (MDRD) > 60.0 ml/min Glucose 93 (74-106) mg/dL Lactic Acid 1.2 (0.4-2.0) mmol/L Calcium 8.7 (8.5-10.1) mg/dL Magnesium 1.9 (1.8-2.4) mg/dL Total Bilirubin 0.2 (0.2-1.0) mg/dL AST 20 (15-37) IU/L ALT 36 (14-63) IU/L Alkaline Phosphatase 107 (46-116) U/L Total Protein 7.4 (6.4-8.2) g/dL Albumin 3.7 (3.4-5.0) g/dL Globulin 3.7 (2.6-4.0) g/dL Albumin/Globulin Ratio 1.0 (0.9-1.6) Lipase 57 L (73-393) U/L Urine Color Urine Appearance Urine pH (5.0-8.0) Ur Specific [place] (1.001-1.035) Urine Protein (NEGATIVE) mg/dL Urine Glucose (UA) (NEGATIVE) mg/dL Urine Ketones (NEGATIVE) mg/dL Urine Occult Blood (NEGATIVE) Urine Nitrite (NEGATIVE) Urine Bilirubin (NEGATIVE) Urine Urobilinogen (<2.0) EU/dL Ur Leukocyte Esterase (NEGATIVE) 08/16/21 Range/Units 16:40 WBC (4.0-11.0) K/uL RBC (4.50-5.90) M/uL Hgb (13.0-17.0) g/dL Hct (38.0-50.0) % MCV (80.0-98.0) fL MCH (27.0-32.0) pg MCHC (31.0-37.0) g/dL RDW Std Deviation (28.0-62.0) fl RDW Coeff of Debbie (11.0-15.0) % Plt Count (150-400) K/uL MPV (7.40-12.00) fL Neut % (Auto) (48.0-80.0) % Lymph % (Auto) (16.0-40.0) % Dickey % (Auto) (0.0-15.0) % Eos % (Auto) (0.0-7.0) % Baso % (Auto) (0.0-1.5) % Neut # (Auto) (1.4-5.7) K/uL Lymph # (Auto) (0.6-2.4) K/uL Dickey # (Auto) (0.0-0.8) K/uL Eos # (Auto) (0.0-0.7) K/uL Baso # (Auto) (0.0-0.1) K/uL Nucleated RBC % /100WBC Nucleated RBCs # K/uL Sodium (136-148) mmol/L Potassium (3.5-5.1) mmol/L Chloride (98-107) mmol/L Carbon Dioxide (21.0-32.0) mmol/L BUN (7.0-18.0) mg/dL Creatinine (0.8-1.3) mg/dL Est Cr Clr Drug Dosing mL/min Estimated GFR (MDRD) ml/min Glucose (74-106) mg/dL Lactic Acid (0.4-2.0) mmol/L Calcium (8.5-10.1) mg/dL Magnesium (1.8-2.4) mg/dL Total Bilirubin (0.2-1.0) mg/dL AST (15-37) IU/L ALT (14-63) IU/L Alkaline Phosphatase (46-116) U/L Total Protein (6.4-8.2) g/dL Albumin (3.4-5.0) g/dL Globulin (2.6-4.0) g/dL Albumin/Globulin Ratio (0.9-1.6) Lipase (73-393) U/L Urine Color YELLOW Urine Appearance CLEAR Urine pH 6.0 (5.0-8.0) Ur Specific [place] 1.020 (1.001-1.035) Urine Protein NEGATIVE (NEGATIVE) mg/dL Urine Glucose (UA) NEGATIVE (NEGATIVE) mg/dL Urine Ketones NEGATIVE (NEGATIVE) mg/dL Urine Occult Blood NEGATIVE (NEGATIVE) Urine Nitrite NEGATIVE (NEGATIVE) Urine Bilirubin NEGATIVE (NEGATIVE) Urine Urobilinogen 0.2 (<2.0) EU/dL Ur Leukocyte Esterase NEGATIVE (NEGATIVE) Meds: Medications Discontinued Medications Generic Name Dose Route Start Last Admin Trade Name Freq PRN Reason Stop Dose Admin Sodium Chloride 1,000 mls @ 999 mls/hr 08/16/21 16:23 08/16/21 16:39 Normal Saline IV 08/16/21 17:23 999 mls/hr .Bolus ONE Administration Iopamidol 100 ml 08/16/21 16:57 08/16/21 16:57 Iopamidol 755 Mg/Ml 500 Ml Multipack Bottle IVPUSH 08/16/21 16:58 100 ml ONETIME ONE Administration Morphine Sulfate 4 mg 08/16/21 16:23 08/16/21 16:38 Morphine 4 Mg/Ml Vial IVPUSH 08/16/21 16:24 4 mg ONETIME ONE Administration Ondansetron HCl 4 mg 08/16/21 16:23 08/16/21 16:38 Ondansetron 4 Mg/2 Ml Sdv IVPUSH 08/16/21 16:24 4 mg ONETIME ONE Administration - Re-Assessments/Exams Free Text/Narrative Re-Assessment/Exam: 08/16/21 17:58 Labs unremarkable. Nothing acute on CT scan other than inflammation mesentery concerning for mesenteric sclerosis. I did discuss the CT imaging results with patient and will provide a copy of the CT report. I recommend that you follow- up with gastroenterology in [place] for further work-up including potential colonoscopy given the bloody stools. Will provide a few days worth of analgesia, informed patient this can increase constipation. Return precautions were discussed at length. Departure - Departure Time of Disposition: 17:59 Disposition: Home, Self-Care 01 Condition: Good Clinical Impression: Abdominal pain Qualifiers: Abdominal location: right upper quadrant Qualified Code(s): R10.11 - Right upper quadrant pain - Discharge Information Instructions: Abdominal Pain, Adult Forms: ED Department Discharge Additional Instructions: You should follow-up with a GI physician in [place]. Be sure to bring the copy of your CT report. If your pain is worsening or you cannot keep anything down then please come back to the emergency department. Your medication was sent to [facility] The following information is given to patients seen in the emergency department who are being discharged to home. This information is to outline your options for follow-up care. We provide all patients seen in our emergency department with a follow-up referral. The need for follow-up, as well as the timing and circumstances, are variable depending upon the specifics of your emergency department visit. If you don't have a primary care physician on staff, we will provide you with a referral. We always advise you to contact your personal physician following an emergency department visit to inform them of the circumstance of the visit and for follow-up with them and/or the need for any referrals to a consulting specialist. The emergency department will also refer you to a specialist when appropriate. This referral assures that you have the opportunity for follow-up care with a specialist. All of these measure are taken in an effort to provide you with optimal care, which includes your follow-up. Under all circumstances we always encourage you to contact your private physician who remains a resource for coordinating your care. When calling for follow-up care, please make the office aware that this follow-up is from your recent emergency room visit. If for any reason you are refused follow-up, please contact the [facility] Emergency Departmen t at and asked to speak to the emergency department charge nurse. Please follow up with your primary care physician. If you do not have a primary care physician, see below: [facility] [address] [place] [id number] [facility] [address] [place] [id number] [facility] [address] [place] [id number] Sepsis Event Note (ED) - Evaluation Sepsis Screening Result: No Definite Risk - Focused Exam Vital Signs: Vital Signs Temp Pulse Resp BP Pulse Ox 08/16/21 16:15 98 F 83 20 111/81 98 - My Orders Last 24 Hours: My Active Orders 08/16/21 16:23 Saline Lock Insert [OM.PC] Stat - Assessment/Plan Last 24 Hours: My Active Orders 08/16/21 16:23 Saline Lock Insert [OM.PC] Stat
[2021-08-16] MEDS ORDERED: Iopamidol 755 MG/ML 500 ML Multipack Bottle IVPUSH ONE (16:57)
[2021-08-16 17:20] LABS: BLOOD UREA NITROGEN,BUN 10 mg/dL (7.0-18.0); CARBON DIOXIDE,CO2 22.8 mmol/L (21.0-32.0); CHLORIDE,CL 107 mmol/L (98-107); GLUCOSE RANDOM 93 mg/dL (74-106); LIPASE 57 U/L (73-393); POTASSIUM,K 4.1 mmol/L (3.5-5.1); SODIUM,NA 141 mmol/L (136-148)
--- NOTE | 2021-08-16 17:47 | CT ---
INDICATION: Left lower quadrant pain. TECHNIQUE: CT abdomen and pelvis acquired with 100 mL Isovue 370 contrast. COMPARISON: CT abdomen/pelvis dated 03/09/2021. FINDINGS: Lower chest: Few stable subcentimeter pulmonary nodules in the lung bases. Liver: No suspicious focal hepatic lesion. Gallbladder and bile ducts: Unremarkable. Pancreas: Unremarkable. Spleen: Unremarkable. Splenule is noted. Adrenal glands: Unremarkable. Kidneys: Kidneys enhance symmetrically, without hydronephrosis. Retroperitoneum: No lymphadenopathy. Bowel and mesentery: Bowel is nonobstructed. Normal appendix. No significant ascites, no pneumoperitoneum. 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 No evidence of acute diverticulitis. Bladder: Unremarkable for degree of distension. Reproductive organs: Unremarkable. Pelvic lymph nodes: No lymphadenopathy. Vessels: Unremarkable. Abdominal wall: No acute abdominal wall abnormality. Bones: No suspicious/aggressive focal osseous lesion. IMPRESSION: 1. 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 Recommend follow-up CT abdomen/pelvis in 6 months. 2. No evidence of acute diverticulitis. Bowel is not obstructed. Normal appendix. 3. Few stable subcentimeter pulmonary nodules in the lung bases, likely infectious/inflammatory in etiology. Please note that all CT scans at this facility use dose modulation, iterative reconstruction, and/or weight-based dosing when appropriate to reduce radiation dose to as low as reasonably achievable. Dictated by Sybil Matute MD @ 08/16/2021 5:45:30 PM (Electronically Signed)
[2021-08-16 18:39] VITALS: BP 127/76; PULSE 77
== END 2021-08-16 18:10 | disposition home or self-care (01) ==
LOC: MW.ED 15:37
DX: R10.11 Right upper quadrant pain (principal)
CPT/HCPCS: 36415; 74177; 80053; 81003; 83605; 83690; 83735; 85025; 96374; 96375; 99285; J2270; J2405; J7030; Q9967

== ENCOUNTER 2021-08-19 17:24 | Emergency (ER) | payer BC ==
--- NOTE | 2021-08-19 19:35 | EDM.PDOC ---
ED HPI GENERAL MEDICAL PROBLEM - General Chief Complaint: Laceration Stated Complaint: LACERATION TO FINGER Time Seen by Provider: 08/19/21 19:29 Source of Information: Reports: Patient History Limitations: Reports: No Limitations - History of Present Illness INITIAL COMMENTS - FREE TEXT/NARRATIVE: 25-year-old male no relevant past medical history presents for finger laceration . Patient was at work when he accidentally cut his left index finger with a knife. Bleeding was difficult to control prior to arrival. Patient's tetanus vaccination is up-to-date within last 5 years. Denies any other injuries. - Related Data Allergies Allergy/AdvReac Type Severity Reaction Status Date / Time No Known Allergies Allergy Verified 08/19/21 18:10 Home Meds: Home Meds Acetaminophen/oxyCODONE [Percocet 325-5 MG] 1 each PO Q4H PRN #18 tab 08/16/21 [Rx] Sertraline [Zoloft] 08/19/21 [History] Past Medical History - Past Health History Medical/Surgical History: Denies Medical/Surgical History HEENT History: Reports: Impaired Vision, Sinusitis Other HEENT History: wears glasses Cardiovascular History: Reports: None Respiratory History: Reports: None, Other (See Below) Other Respiratory History: Had pneumonia 2020 Gastrointestinal History: Reports: None Genitourinary History: Reports: None Musculoskeletal History: Reports: None Neurological History: Reports: Concussion Other Neuro History: hx of motion sickness, concussion (2014) Psychiatric History: Reports: Anxiety, Bipolar, Depression, Other (See Below) Other Psychiatric History: dx at 12 yrs old with bipolar Endocrine/Metabolic History: Reports: None Insulin Pump Model and Food Service Coordinator: None Hematologic History: Reports: None Immunologic History: Reports: None Oncologic (Cancer) History: Reports: None Dermatologic History: Reports: None - Infectious Disease History Infectious Disease History: Reports: None - Past Surgical History Head Surgeries/Procedures: Reports: None HEENT Surgical History: Reports: None Other HEENT Surgeries/Procedures: molars removed Cardiovascular Surgical History: Reports: None Respiratory Surgical History: Reports: None GI Surgical History: Reports: None Male Surgical History: Reports: None Endocrine Surgical History: Reports: None Neurological Surgical History: Reports: None Musculoskeletal Surgical History: Reports: Other (See Below) Other Musculoskeletal Surgeries/Procedures:: R hand Oncologic Surgical History: Reports: None Dermatological Surgical History: Reports: None Social & Family History - Family History Family Medical History: No Pertinent Family History Oncologic: Reports: Lung, Other (See Below) Other Oncologic Family History: Paternal grandfather - Tobacco Use Second Hand Smoke Exposure: No - Caffeine Use Caffeine Use: Reports: None Caffeine Use Comment: 2-3 drinks /day - Recreational Drug Use Recreational Drug Use: No ED ROS GENERAL - Review of Systems Review Of Systems: Comprehensive ROS is negative, except as noted in HPI. ED EXAM, SKIN/RASH Exam: See Below Exam Limited By: No Limitations General Appearance: Alert, WD/WN, No Apparent Distress Ears: Hearing Grossly Normal Throat/Mouth: Normal Voice, No Airway Compromise Head: Atraumatic, Normocephalic Respiratory/Chest: No Respiratory Distress, No Accessory Muscle Use Cardiovascular: Normal Peripheral Pulses Extremities: Normal Inspection, Other (1-cm linear laceration to PIP of left 2nd digit) Neurological: Alert, Normal Cognition, Normal Gait Psychiatric: Normal Affect, Normal Mood Skin: Warm, Dry, Intact, Normal Color ED SKIN PROCEDURES - Laceration/Wound Repair Left Digit - 2nd (Index) Appearance: Superficial Anesthetic Type: Digital Local Anesthesia - Lidocaine (Xylocaine): 1% Plain Local Anesthetic Volume: 5cc Skin Prep: Isopropyl Alcohol (Alcohol) Saline Irrigation (cc's): 50 Closed with: Sutures Lac/Wound length In cm: 1 Suture Size: 5-0 # of Sutures: 3 Suture Type: Nylon, Interrupted, Simple Tetanus Status Addressed: Yes Complications: No Course - Vital Signs Last Recorded V/S: Last Vital Signs Temp 98.7 F 08/19/21 18:05 Pulse 80 08/19/21 18:05 Resp 20 08/19/21 18:05 BP 102/85 08/19/21 18:05 Pulse Ox 98 08/19/21 18:05 - Orders/Labs/Meds Meds: Medications Discontinued Medications Generic Name Dose Route Start Last Admin Trade Name Dmitryq PRN Reason Stop Dose Admin Lidocaine HCl 5 ml 08/19/21 19:34 08/19/21 19:50 Lidocaine 1% 5 Ml Sdv INJECT 08/19/21 19:35 5 ml ONETIME ONE Administration - Re-Assessments/Exams Free Text/Narrative Re-Assessment/Exam: 08/19/21 19:47 We will repair the laceration. Patient's tetanus status is already up-to-date. Departure - Departure Time of Disposition: 20:06 Disposition: Home, Self-Care 01 Condition: Good Clinical Impression: Laceration - Discharge Information Instructions: Laceration Care, Adult Referrals: PCP,None [Primary Care Provider] - Forms: ED Department Discharge Additional Instructions: You are seen in the emergency department for laceration to your finger. You need to either come back to the emergency department or follow-up with an urgent care center or your primary care physician in 7 to 10 days to have the sutures removed. The following information is given to patients seen in the emergency department who are being discharged to home. This information is to outline your options for follow-up care. We provide all patients seen in our emergency department with a follow-up referral. The need for follow-up, as well as the timing and circumstances, are variable depending upon the specifics of your emergency department visit. If you don't have a primary care physician on staff, we will provide you with a referral. We always advise you to contact your personal physician following an emergency department visit to inform them of the circumstance of the visit and for follow-up with them and/or the need for any referrals to a consulting specialist. The emergency department will also refer you to a specialist when appropriate. T his referral assures that you have the opportunity for follow-up care with a specialist. All of these measure are taken in an effort to provide you with optimal care, which includes your follow-up. Under all circumstances we always encourage you to contact your private physician who remains a resource for coordinating your care. When calling for follow-up care, please make the office aware that this follow-up is from your recent emergency room visit. If for any reason you are refused follow-up, please contact the [facility] Emergency Department at and asked to speak to the emergency department charge nurse. Please follow up with your primary care physician. If you do not have a primary care physician, see below: [facility] [address] [place] [id number] [facility] [address] [place] [address] [facility] [address], [place] [address] Sepsis Event Note (ED) - Evaluation Sepsis Screening Result: No Definite Risk - Focused Exam Vital Signs: Vital Signs Temp Pulse Resp BP Pulse Ox 08/19/21 18:05 98.7 F 80 20 102/85 98
[2021-08-19 20:49] VITALS: BP 106/78; PULSE 76
== END 2021-08-19 20:45 | disposition home or self-care (01) ==
LOC: MW.ED 17:24
DX: S61.211A Laceration without foreign body of left index finger without damage to nail, initial encounter (principal); W26.0XXA Contact with knife, initial encounter; Y99.0 Civilian activity done for income or pay
CPT/HCPCS: 12001; 99282-25

== ENCOUNTER 2021-08-27 13:24 | Emergency (ER) | payer BC ==
[2021-08-27] MEDS ORDERED: Ketorolac 60 MG/2 ML SDV IM ONE (16:16)
[2021-08-27] MEDS ORDERED: Orphenadrine 60 MG/2 ML Inj IM ONE (16:16)
[2021-08-27 17:30] VITALS: BP 124/76; PULSE 61
== END 2021-08-27 17:24 | disposition home or self-care (01) ==
LOC: MW.ED 13:24
DX: M54.41 Lumbago with sciatica, right side (principal)
CPT/HCPCS: 72100; 96372; 99283; J1885; J2360

== ENCOUNTER 2022-03-03 16:38 | Emergency (ER) | payer BC ==
[2022-03-03] MEDS ORDERED: Ondansetron 4 MG Tab.DIS PO ONE (18:32)
[2022-03-04 01:58] VITALS: BP 130/69; PULSE 89
== END 2022-03-03 20:37 | disposition home or self-care (01) ==
LOC: MW.ED 16:38
DX: U07.1 COVID-19 (principal)
CPT/HCPCS: 71045; 87635; 99284; A9270; 99283; U0002

== ENCOUNTER 2022-07-18 18:19 | Emergency (ER) | payer OTHER, BC ==
[2022-07-18] MEDS ORDERED: Ketorolac 30 MG/ML SDV IM STA (21:09)
[2022-07-18] MEDS ORDERED: Ondansetron 4 MG Tab.DIS PO ONE (21:09)
[2022-07-18 21:41] LABS: CORONAVIRUS COVID-19 NAA NEGATIVE (NEGATIVE)
[2022-07-18 22:31] LABS: INFLUENZA A NAA NEGATIVE (NEGATIVE); INFLUENZA B NAA NEGATIVE (NEGATIVE); RESPIRATORY SYNCYTIAL VIR NAA NEGATIVE (NEGATIVE)
[2022-07-18 23:15] VITALS: BP 141/85; PULSE 73
== END 2022-07-18 22:47 | disposition home or self-care (01) ==
LOC: MW.ED 18:19
DX: R11.10 Vomiting, unspecified (principal); R05.9 Cough, unspecified; Z79.899 Other long term (current) drug therapy; Z20.822 Contact with and (suspected) exposure to COVID-19
CPT/HCPCS: 0241U; 71045; 96372; 99284; A9270; J1885; 99283

== ENCOUNTER 2022-10-16 10:55 | Day surgery (SDC) | payer BC, OTHER ==
[~2022-10-16 10:55] MED LIST: Lactated Ringers 1,000 ML IV SCH; Propofol 200 MG/20 ML SDV ONE; Sodium Chloride 0.9% 10 ML Syringe FLUSH PRN; Sodium Chloride 0.9% 2.5 ML Syringe FLUSH PRN; Sodium Chloride 0.9% 20 ML SDV IV PRN
[2022-10-16 13:26] VITALS: PULSE 80
[2022-10-16 13:31] VITALS: BP 114/60
== END 2022-10-16 13:50 | disposition home or self-care (01) ==
LOC: MW.SDS 10:55
PROVIDERS: ATTEND Surgery
DX: R11.2 Nausea with vomiting, unspecified (principal); R10.13 Epigastric pain; F41.8 Other specified anxiety disorders; K21.9 Gastro-esophageal reflux disease without esophagitis; F43.10 Post-traumatic stress disorder, unspecified; F17.210 Nicotine dependence, cigarettes, uncomplicated; Z79.899 Other long term (current) drug therapy
CPT/HCPCS: 43239; J2704; J7120; 00731

== ENCOUNTER 2022-12-09 06:29 | Day surgery (SDC) | payer BC, OTHER ==
[~2022-12-09 06:29] MED LIST changes: -Propofol 200 MG/20 ML SDV ONE
[2022-12-09] MEDS ORDERED: Bupivacaine 0.5% 30 ML SDV ONE (07:27)
[2022-12-09] MEDS ORDERED: fentaNYL 100 MCG/2 ML SDV ONE (07:27)
[2022-12-09] MEDS ORDERED: Propofol 200 MG/20 ML SDV ONE (07:27)
[2022-12-09] MEDS ORDERED: Rocuronium Bromide 50 MG/5 ML Syringe ONE (07:28)
[2022-12-09] MEDS ORDERED: Ketorolac 30 MG/ML SDV ONE (07:28)
[2022-12-09] MEDS ORDERED: Lidocaine 1% 5 ML VIAL ONE (07:28)
[2022-12-09] MEDS ORDERED: Dexamethasone 4 MG/ML 5 ML MDV ONE (07:28)
[2022-12-09] MEDS ORDERED: Dexmedetomidine 200 MCG/2 ML SDV ONE (07:28)
[2022-12-09] MEDS ORDERED: Ondansetron 4 MG/2 ML SDV ONE (07:28)
[2022-12-09] MEDS ORDERED: Bupivacaine 0.25% 30 ML SDV ONE (07:30)
[2022-12-09] MEDS ORDERED: Water For Injection, Sterile 20 ML ONE (07:30)
[2022-12-09] MEDS ORDERED: Scopolamine 1.5 MG Transdermal Patch ONE (07:30)
[2022-12-09] MEDS ORDERED: Scopolamine 1.5 MG Transdermal Patch TOP ONE (07:33)
[2022-12-09] MEDS ORDERED: Naloxone 0.4 MG/ML SDV IVPUSH PRN (07:36)
[2022-12-09] MEDS ORDERED: Albuterol 0.083% 2.5 MG/3 ML Neb Soln NEB PRN (07:36)
[2022-12-09] MEDS ORDERED: Morphine 2 MG/ML SYRINGE IVPUSH PRN (07:36)
[2022-12-09] MEDS ORDERED: HYDROmorphone 1 MG/ML Syringe IVPUSH PRN (07:36)
[2022-12-09] MEDS ORDERED: Ondansetron 4 MG/2 ML SDV IVPUSH PRN (07:36)
[2022-12-09] MEDS ORDERED: droPERidol 5 MG/2 ML SDV IVPUSH PRN (07:36)
[2022-12-09] MEDS ORDERED: fentaNYL 50 MCG/ML SDV IVPUSH PRN (07:36)
[2022-12-09] MEDS ORDERED: Metoclopramide 10 MG/2 ML SDV IVPUSH PRN (07:36)
[2022-12-09] MEDS ORDERED: Ketamine 500 mg/10 ML MDV ONE (07:43)
[2022-12-09] MEDS ORDERED: Magnesium Sulfate (4.06 MEQ/ML) 5 GM/10 ML SDV ONE (07:52)
[2022-12-09] MEDS ORDERED: ePHEDrine 50 MG/ML SDV ONE (08:54)
[2022-12-09] MEDS ORDERED: ceFAZolin 2 GM in Sodium Chloride 0.9% 50 ML IV ONE (11:43)
[2022-12-09 14:53] VITALS: BP 116/78; PULSE 50
== END 2022-12-09 11:10 | disposition home or self-care (01) ==
LOC: MW.SDS 06:29
PROVIDERS: ATTEND Surgery
DX: K81.1 Chronic cholecystitis (principal); K82.8 Other specified diseases of gallbladder; F41.8 Other specified anxiety disorders; K21.9 Gastro-esophageal reflux disease without esophagitis; E66.9 Obesity, unspecified; F43.10 Post-traumatic stress disorder, unspecified; F12.90 Cannabis use, unspecified, uncomplicated; Z68.37 Body mass index [BMI] 37.0-37.9, adult; Z79.899 Other long term (current) drug therapy; Z87.891 Personal history of nicotine dependence
CPT/HCPCS: 00790; 64488; A9270-GY; J0131; J1100; J1170; J1885; J2405; J2704; J3010; J3475; J3490; J7030; J7120

== ENCOUNTER 2023-06-13 18:34 | Emergency (ER) | payer BC, OTHER ==
[2023-06-13] MEDS ORDERED: Amoxicillin/Clavulanate K 875-125 MG Tab PO ONE (18:55)
[2023-06-13] MEDS ORDERED: Ondansetron 4 MG Tab.DIS PO ONE (19:07)
[2023-06-13 19:14] VITALS: BP 119/91; PULSE 82
== END 2023-06-13 19:09 | disposition home or self-care (01) ==
LOC: MW.ED 18:34
DX: H66.91 Otitis media, unspecified, right ear (principal); E66.9 Obesity, unspecified; Z68.36 Body mass index [BMI] 36.0-36.9, adult
CPT/HCPCS: 99282; A9270; 99283

== ENCOUNTER 2023-07-10 16:04 | Emergency (ER) | payer BC ==
[2023-07-10 16:32] VITALS: PULSE 69
[2023-07-10 17:24] VITALS: BP 142/87
== END 2023-07-10 17:23 | disposition home or self-care (01) ==
LOC: MW.ED 16:04
DX: H66.91 Otitis media, unspecified, right ear (principal); F17.210 Nicotine dependence, cigarettes, uncomplicated; E66.9 Obesity, unspecified; Z79.899 Other long term (current) drug therapy; Z68.36 Body mass index [BMI] 36.0-36.9, adult
CPT/HCPCS: 99282; 99283

== ENCOUNTER 2023-07-12 17:41 | Emergency (ER) | payer BC ==
[2023-07-12] MEDS ORDERED: Sodium Chloride 0.9% 2.5 ML Syringe FLUSH PRN (18:54)
[2023-07-12] MEDS ORDERED: Sodium Chloride 0.9% 1,000 ML IV STA ×2 (18:54→19:39)
[2023-07-12] MEDS ORDERED: Sodium Chloride 0.9% 10 ML Syringe FLUSH PRN (18:54)
[2023-07-12] MEDS ORDERED: Ondansetron 4 MG/2 ML SDV IVPUSH STA ×2 (18:54→22:18)
[2023-07-12 19:02] LABS: HEMATOCRIT 48.1 % (42.0-52.0); HEMOGLOBIN 17.4 g/dL (14.0-18.0); MEAN CORPUSCULAR HEMOGLOBIN 30.8 pg (28.0-32.0); MEAN CORPUSCULAR HGB CONC 36.2 g/dL (32.0-36.0); MEAN CORPUSCULAR VOLUME 85.1 fL (83.0-99.0); MEAN PLATELET VOLUME 10.7 fL (9.4-12.4); PLATELET COUNT,PLT 392 K/uL (150-400); RED BLOOD CELL COUNT 5.65 M/uL (4.52-5.90); WHITE BLOOD CELL COUNT,WBC 26.55 K/uL (3.9-11.3)
[2023-07-12 19:21] LABS: EOSINOPHILS ABSOLUTE MAN 0.27 K/uL (0.00-0.45); EOSINOPHILS PERCENT MAN 1 % (0-6); LYMPHOCYTES ABSOLUTE MAN 2.12 K/uL (1.00-4.80); LYMPHOCYTES PERCENT MAN 8 % (24-44); MONOCYTES ABSOLUTE MAN 1.59 K/uL (0.00-0.80); MONOCYTES PERCENT MAN 6 % (0-8); SEG NEUTROPHILS ABSOLUTE MAN 22.57 K/uL (1.80-7.70); SEG NEUTROPHILS PERCENT MAN 85 % (41-71)
[2023-07-12 19:22] LABS: ALBUMIN 4.2 g/dL (3.4-5.0); BILIRUBIN TOTAL 0.5 mg/dL (0.2-1.0); CALCIUM 9.4 mg/dL (8.5-10.1); CARBON DIOXIDE,CO2 17.7 mmol/L (21.0-32.0); CREATININE 0.9 mg/dL (0.8-1.3); EST CRCL DRUG DOSING (CG) 133.63 mL/min; POTASSIUM,K 3.7 mmol/L (3.5-5.1); PROTEIN TOTAL,TP 8.4 g/dL (6.4-8.2)
[2023-07-12] MEDS ORDERED: Ketorolac 30 MG/ML SDV IVPUSH STA (19:39)
[2023-07-12] MEDS ORDERED: Iopamidol 755 MG/ML 500 ML Multipack Bottle IVPUSH ONE (20:12)
[2023-07-12 22:34] VITALS: BP 119/53; PULSE 75
== END 2023-07-12 22:33 | disposition home or self-care (01) ==
LOC: MW.ED 17:41
DX: R10.84 Generalized abdominal pain (principal); R19.7 Diarrhea, unspecified; Z79.899 Other long term (current) drug therapy
CPT/HCPCS: 36415; 74177; 80053; 83690; 83735; 85025; 96361; 96374; 96375; 96376; 99284; J1885; J2405; J3490; J7030; Q9967

== ENCOUNTER 2023-11-29 20:23 | Emergency (ER) | payer BC ==
[2023-11-29] MEDS: Ondansetron 4 MG/2 ML SDV IVPUSH ONE (21:43)
[2023-11-29] MEDS: Sodium Chloride 0.9% 1,000 ML IV ONE (21:44)
[2023-11-29 22:13] LABS: CALCIUM 8.8 mg/dL (8.5-10.1); CARBON DIOXIDE,CO2 20.8 mmol/L (21.0-32.0); CREATININE 0.7 mg/dL (0.8-1.3); EST CRCL DRUG DOSING (CG) 170.32 mL/min; POTASSIUM,K 3.7 mmol/L (3.5-5.1)
[2023-11-29 23:16] VITALS: BP 106/62; PULSE 82
== END 2023-11-29 23:15 | disposition home or self-care (01) ==
LOC: MW.ED 20:23
DX: R11.2 Nausea with vomiting, unspecified (principal); J45.909 Unspecified asthma, uncomplicated; F17.210 Nicotine dependence, cigarettes, uncomplicated; Z79.899 Other long term (current) drug therapy; Z86.16 Personal history of COVID-19
CPT/HCPCS: 36415; 80048; 96361; 96374; 99284; J2405; J7030

== ENCOUNTER 2025-03-15 15:18 | Emergency (ER) | payer SELFPAY ==
[2025-03-15 16:25] LABS: APPEARANCE,URINE CLEAR; GLUCOSE,URINE NEGATIVE (NEGATIVE); OCCULT BLOOD,URINE NEGATIVE (NEGATIVE)
[2025-03-15] MEDS: Diphtheria,Pertussis(Acell),Tetanus Vaccine 0.5 ML Syringe IM ONE (16:32)
[2025-03-15] MEDS: Lidocaine/Epineph/Tetracaine 3 ML Syringe TOP ONE (16:36)
[2025-03-15 16:42] LABS: EPITHELIAL CELLS,URINE RARE (NONE-FEW)
[2025-03-15 16:46] LABS: AMPHETAMINES SCREEN, URINE NEGATIVE (CUTOFF=500); BUPRENORPHINE SCREEN,URINE NEGATIVE (CUTOFF=10); METHADONE SCREEN, URINE NEGATIVE (CUTOFF=200); METHAMPHETAMINES SCREEN, URINE NEGATIVE (CUTOFF=500); OXYCODONE SCREEN,URINE NEGATIVE (CUT0FF=100); PCP SCREEN,URINE NEGATIVE (CUTOFF=25); THC SCREEN,URINE 20 NG/ML PRESUMPTIVE POSITIVE (CUTOFF=50)
[2025-03-15 16:47] LABS: BASOPHILS ABSOLUTE AUTO 0.07 K/uL (0.00-0.20); BASOPHILS PERCENT AUTO 0.6 % (0.0-1.0); EOSINOPHILS ABSOLUTE AUTO 0.10 K/uL (0.00-0.45); EOSINOPHILS PERCENT AUTO 0.9 % (0.0-6.0); IMMATURE GRAN ABSOLUTE AUTO 0.04 K/uL (0.00-0.05); IMMATURE GRAN PERCENT AUTO 0.4 % (0.0-0.4); LYMPHOCYTES ABSOLUTE AUTO 1.15 K/uL (1.00-4.80); LYMPHOCYTES PERCENT AUTO 10.5 % (24.0-44.0); MEAN PLATELET VOLUME 11.7 fL (9.4-12.4); MONOCYTES ABSOLUTE AUTO 0.54 K/uL (0.00-0.80); MONOCYTES PERCENT AUTO 4.9 % (0.0-8.0); NEUTROPHILS ABSOLUTE AUTO 9.07 K/uL (1.80-7.70); NEUTROPHILS PERCENT AUTO 82.7 % (41.0-71.0); NRBC ABSOLUTE 0.00 K/uL (0.00-0.02); NRBC PERCENT 0.0 /100WBC (0.0-0.2); PLATELET COUNT,PLT 329 K/uL (150-400); RED BLOOD CELL COUNT 4.72 M/uL (4.52-5.90); WHITE BLOOD CELL COUNT,WBC 10.97 K/uL (3.9-11.3)
[2025-03-15 16:58] LABS: A/G RATIO 1.1 (0.9-1.6); ALANINE AMINOTRANSFERASE,ALT 28 IU/L (14-63); ASPARTATE AMNIOTRANSFERASE,AST 16 IU/L (15-37); BILIRUBIN TOTAL 0.2 mg/dL (0.2-1.0); BLOOD UREA NITROGEN,BUN 11 mg/dL (7.0-18.0); CARBON DIOXIDE,CO2 25.6 mmol/L (21.0-32.0); CHLORIDE,CL 105 mmol/L (98-107); CREATININE 0.9 mg/dL (0.8-1.3); EST CRCL DRUG DOSING (CG) 131.31 mL/min; GLUCOSE RANDOM 102 mg/dL (74-106); POTASSIUM,K 3.9 mmol/L (3.5-5.1); PROTEIN TOTAL,TP 7.5 g/dL (6.4-8.2); SODIUM,NA 140 mmol/L (136-148); TSH ULTRASENSITIVE 1.12 uIU/mL (0.36-3.74)
[2025-03-15 17:07] LABS: ESTIMATED GFR 120 mL/min (>60); ETHANOL BLOOD MEDICAL < 3.0 mg/dL
[2025-03-15 18:06] VITALS: BP 135/84; PULSE 97
== END 2025-03-15 18:08 | disposition home or self-care (01) ==
LOC: MW.ED 15:18
DX: S61.512A Laceration without foreign body of left wrist, initial encounter (principal); R45.89 Other symptoms and signs involving emotional state; X58.XXXA Exposure to other specified factors, initial encounter
CPT/HCPCS: 12004; 36415; 80053; 80143; 80179; 80305; 80307; 81001; 83735; 84443; 85025; 90471; 90715; 93005; 99285; A9270; J2003; 93010; 99283